=== PATIENT | female | born 1960 | race Caucasian/White ===

== ENCOUNTER 2020-01-09 15:07 | Outpatient (CLI) | payer MEDICARE, SELFPAY ==
--- NOTE | 2020-01-09 15:38 | XR_ITS ---
WS: [id number] HAND LEFT TECHNIQUE: 3 views of the left hand CLINICAL INFORMATION: THUMB PAIN, BILATERAL COMPARISON: None. FINDINGS: Osteopenia. Normal metacarpals. Normal MCP joint. Metacarpal heads are normal in appearance. Mild narrowing of th e IP joints worse involving the fourth and fifth digits. Chronic appearing erosion or small lytic les ion involving the third distal phalangeal tuft. Mild degenerative arthritis the first CMC. Radiocarpal joint: Mild narrowing Carpal bones: Normal. XR/XR hand LT min 3V* [id number] IMPRESSION: 1. Mild degenerative arthritis at the first CMC and radiocarpal joint. 2. Mild narrowing of the fourth and fifth IP joints. 3. Chronic appearing erosion or small lytic lesion involving the third distal phalangeal tuft. Recommend clinical correlation third finger pain or history of trauma.
--- NOTE | 2020-01-09 15:38 | XR_ITS ---
WS: [id number] HAND RIGHT TECHNIQUE: 3 views of the right hand CLINICAL INFORMATION: THUMB PAIN, BILATERAL COMPARISON: None. FINDINGS: Osteopenia. Normal metacarpals. Normal MCP joint. Metacarpal heads are normal in appearance. Normal PIP and DIP j oints. No evidence of acute fracture or dislocation. Radiocarpal joint: Mild degenerative narrowing. Carpal bones: Normal. XR/XR hand RT min 3V* [id number] IMPRESSION: 1. Mild degenerative arthritis right hand with mild narrowing of the radiocarp al joint. 2. Osteopenia. 3. No acute fractures.
== END 2020-01-09 15:08 | disposition home or self-care (01) ==
LOC: RADWPI 15:35
PROVIDERS: PCP Internal Medicine; Visit Provider Nurse Practitioner Family
DX: M19.041 Primary osteoarthritis, right hand (principal); M85.841 Other specified disorders of bone density and structure, right hand; M19.042 Primary osteoarthritis, left hand
CPT/HCPCS: 73130

== ENCOUNTER → 2020-01-11 14:27 | Outpatient (BNVA) | payer OTHER, SELFPAY | PROVIDERS: PCP Internal Medicine; Visit Provider Nurse Practitioner Family | DX: J06.9 Acute upper respiratory infection, unspecified (principal); Z11.59 Encounter for screening for other viral diseases | CPT/HCPCS: 87635 ==

== ENCOUNTER → 2020-03-09 11:51 | Outpatient (BNVA) | payer MEDICARE, SELFPAY | PROVIDERS: PCP Internal Medicine; Visit Provider Nurse Practitioner Family | DX: S62.616D Displaced fracture of proximal phalanx of right little finger, subsequent encounter for fracture with routine healing (principal); X58.XXXD Exposure to other specified factors, subsequent encounter | CPT/HCPCS: 73130 ==

== ENCOUNTER 2020-03-09 12:27 | Emergency (ER) | payer MEDICARE, SELFPAY ==
--- NOTE | 2020-03-09 12:28 | XRR_ITS ---
PROCEDURE INFORMATION: Exam: XR Right Hand Exam date and time: 03/09/2020 12:38 PM Age: 59 years old Clinical indication: Injury or trauma; Fall; Blunt trauma (contusions or hematomas); Hand; Right; Injury date: 03/09/2020; Injury details: PT fell today TECHNIQUE: Imaging protocol: XR Right hand. Views: 3 or more views. COMPARISON: CR XR hand RT min 3V* [id number] 03/09/2020 12:05 PM FINDINGS: Bones/joints: There is transverse nondisplaced hairline fractures in the proximal shaft of the proximal phalange of the 5th digit . Soft tissues: Diffuse soft tissue edema is seen in the dorsal aspect of the hand overlying the 5th metacarpal phalangeal articulation. XR/XR hand RT min 3V* [id number] IMPRESSION: 1. Transverse nondisplaced fracture proximal phalange of the 5th digit 2. Soft tissue edema dorsal aspect of the hand near the 5th digit
[2020-03-09 12:30] VITALS: BP 118/76; PULSE 80; RESP 18; TEMP 36.3; O2SAT 99; BMI 44.6
--- NOTE | 2020-03-09 12:34 | ED_ITS ---
HPI - Fall General: Chief Complaint: Extremity Injury, Upper Stated Complaint: R HAND INJURY POST FALL Time Seen by Provider: 03/09/20 12:31 Source: patient Mode of arrival: ambulatory Limitations: no limitations History of Present Illness: HPI Narrative: 59-year-old female states she fell this morning found her right side. She has deformity of her right pinky finger. She was seen in urgent care and sent here for x-ray x-ray did show dislocation. States her pain is a 7 out of 10. Denies any worsening improving factors. Associated symptoms-after fall: Denies abdominal pain, chest pain, headache(s) or neck pain Review of Systems Const: Denies: fever(s), chills, body aches or change in appetite Eyes: Denies: blurry vision or eye discomfort ENMT: Denies: throat pain or dental pain Card: Denies: chest pain Resp: Denies: dyspnea GI: Denies: abdominal pain, nausea, vomiting or diarrhea : Denies: dysuria Musc: Reports: extremity pain; Denies: neck pain or back pain Skin/Breast: Denies: rash Neuro: Denies: headache(s) Psych: Denies: depression Erick/Lymph: Denies: easy bruising All/Imm: Denies: urticaria PFSH ED PFSH: Social History (Updated 03/09/20 @ 11:39 by Janice Jimenez LPN) Smoking and tobacco status: never smoked Alcohol intake: current Physical Exam Const: COMMON NORMALS: no acute distress, patient oriented x3 and healthy appearing HENMT: COMMON NORMALS: normocephalic and atraumatic HEAD & SCALP: normocephalic and atraumatic Eye: COMMON NORMALS: Equal, round and reactive pupils present and EOMs intact bilaterally PUPIL: Yes Equal, round and reactive pupils present Neck/C-Spine: COMMON NORMALS: full ROM and supple Chest: COMMONS NORMALS: normal inspection of the chest and normal palpation of entire chest wall Resp: COMMON NORMALS: normal respiratory effort, No retractions, No use of accessory muscles and clear to auscultation bilaterally AUSCULTATION: clear to auscultation bilaterally Cardio: COMMON NORMALS: regular rate, regular rhythm and No murmurs present (Cardio) RATE: regular rate RHYTHM: regular rhythm GI: COMMON NORMALS: Normal to inspection, nondistended, normoactive bowel sounds present, Soft to palpation, non-tender and no masses PALPATION: Yes Soft to palpation Extremity: NARRATIVE EXTREMITY EXAM: Dislocation to PIP joint of right ring finger Neuro: COMMON NORMALS: patient oriented x3, moves all extremities and no focal motor deficits Psych: COMMON NORMALS: mental status grossly normal, Normal thought process present and cooperative THOUGHT PROCESS: Normal thought process present Skin: COMMON NORMALS: no rashes or lesions noted and no wounds GENERAL SKIN EXAM: no rashes or lesions noted Procedures Orthopedic Joint Reduction Joint #1: Time Out Performed: Yes Side: right Joint Reduction Location: finger Analgesia: nerve block Local Anesthesia: bupivacaine 0.5% Amount of anesthesic used (mL): 10 Shoulder Technique Used (if applicable): traction/counter-traction Post-reduction neuro exam: intact Post-reduction vascular: intact Post Reduction X-Ray Obtained: Yes Post Reduction X-Ray Results: reduced Splint Applied: Yes Patient Tolerated Procedure: well Course Vital Signs: Vital signs: Vital Signs Temperature 97.3 F L 03/09/20 12:30 Pulse Rate 80 03/09/20 12:30 Respiratory Rate 18 03/09/20 12:30 Blood Pressure 118/76 03/09/20 12:30 Pulse Oximetry 99 03/09/20 12:30 MDM - Fall MDM Narrative: Medical decision making narrative: Patient presents here with finger dislocation along with a proximal fracture. Patient was relocated here with any problems. Patient placed in a finger splint as well and is to follow- up orthopedics. She is return if worsening. Imaging Data^: Other Xray: Attestation: I personally reviewed and interpreted this imaging study as follows: My impression: Fracture to phalanx Discharge Plan Discharge Patient Disposition: Home Clinical Impression: Dislocation of finger Qualifiers: Encounter type: initial encounter Qualified Code(s): S63.259A - Unspecified dislocation of unspecified finger, initial encounter Finger fracture, right Qualifiers: Encounter type: initial encounter Finger: little finger Fracture type: closed Phalanx: proximal Fracture alignment: nondisplaced Qualified Code(s): S62.646A - Nondisplaced fracture of proximal phalanx of right little finger, initial encounter for closed fracture Condition: Stable Prescriptions: No Action tamsulosin 0.4 mg capsule 0.4 mg PO DAILY RF: 0 cyclobenzaprine 5 mg tablet 5 mg PO TID PRNRF: 0 levothyroxine 50 mcg capsule 50 mcg PO DAILY RF: 0 gabapentin 300 mg capsule 300 mg PO BID RF: 0 doxepin 10 mg capsule 10 mg PO DAILY RF: 0 venlafaxine 25 mg tablet 25 mg PO DAILY RF: 0 oxycodone 5 mg capsule 5 mg PO QID PRNRF: 0 Discharge Orders: Discharge Order (Routine); Ordered 03/09/20 Ordered By: Jen Dave Referrals: Jo Evans DO [Primary Care Provider] - Mateo Cerna MD [Physician] - 1-3 days Discharge Diet: Advance as tolerated Discharge Activity: Resume usual activity Patient Instructions: Finger Fracture (ED), Finger Dislocation (ED) Coding Level of Care Code ED High Density Press Laborer for Chg Fwd Exam Comprehensive
[2020-03-09] MEDS: HYDROcodone-acetaminophen 5-325 mg Tablet 1 TAB PO (12:40)
--- NOTE | 2020-03-09 13:08 | PC.NURSE ---
frog splint applies to finger
--- NOTE | 2020-03-11 10:57 | DCPLANNER ---
physician practice manager had message to schedule a follow up appointment for patient with ortho. physician practice manager called the ortho clinic, spoke with [place], gave clinic patients information. physician practice manager was told that patients information would be printed and reviewed. Clinic will call patient with appointment information.
--- NOTE | 2020-03-12 08:30 | DCPLANNER ---
Patient has a follow up appointment scheduled for Thursday, March 12, 2020 at 3:[address] Cerna. Clinic will call patient with appointment information.
--- NOTE | 2020-04-09 14:41 | DCPLANNER ---
Patient had a follow up appointment scheduled with ortho - patient did attend appointment.
== END 2020-03-09 13:11 | disposition home or self-care (01) ==
PROVIDERS: Emergency Provider Emergency Medicine; PCP Internal Medicine
DX: S62.646A Nondisplaced fracture of proximal phalanx of right little finger, initial encounter for closed fracture (principal); S63.286A Dislocation of proximal interphalangeal joint of right little finger, initial encounter; W19.XXXA Unspecified fall, initial encounter; S62.616D Displaced fracture of proximal phalanx of right little finger, subsequent encounter for fracture with routine healing; X58.XXXD Exposure to other specified factors, subsequent encounter
CPT/HCPCS: 12345; 26770; 73130; 99281; 99283

== ENCOUNTER → 2020-03-13 10:58 | Outpatient (BNVA) | payer MEDICARE, SELFPAY | PROVIDERS: PCP Internal Medicine; Referring Provider Nurse Practitioner Family; Visit Provider Specialist | DX: S62.616D Displaced fracture of proximal phalanx of right little finger, subsequent encounter for fracture with routine healing (principal); X58.XXXD Exposure to other specified factors, subsequent encounter; M79.631 Pain in right forearm; Z46.89 Encounter for fitting and adjustment of other specified devices; S50.11XD Contusion of right forearm, subsequent encounter; W18.39XD Other fall on same level, subsequent encounter | CPT/HCPCS: 73090; 73140; 97760; L3984 ==

== ENCOUNTER 2020-03-13 13:13 | Outpatient (CLI) | payer MEDICARE, SELFPAY | END 2020-03-13 13:14 | disposition home or self-care (01) | LOC: SPT 13:15 | PROVIDERS: PCP Internal Medicine; Visit Provider Specialist | DX: Z46.89 Encounter for fitting and adjustment of other specified devices (principal); S62.616D Displaced fracture of proximal phalanx of right little finger, subsequent encounter for fracture with routine healing; S50.11XD Contusion of right forearm, subsequent encounter; W18.39XD Other fall on same level, subsequent encounter | CPT/HCPCS: 97760; L3984 ==

== ENCOUNTER → 2020-03-20 09:45 | Outpatient (BNVA) | payer MEDICARE, SELFPAY | PROVIDERS: PCP Internal Medicine; Visit Provider Specialist | DX: S63.259A Unspecified dislocation of unspecified finger, initial encounter (principal); S62.646A Nondisplaced fracture of proximal phalanx of right little finger, initial encounter for closed fracture; M25.559 Pain in unspecified hip; X58.XXXA Exposure to other specified factors, initial encounter | CPT/HCPCS: 73140 ==

== ENCOUNTER → 2020-04-22 14:10 | Outpatient (BNVA) | payer MEDICARE, SELFPAY | PROVIDERS: PCP Internal Medicine; Visit Provider Nurse Practitioner Family | DX: Z20.828 Contact with and (suspected) exposure to other viral communicable diseases (principal); J06.9 Acute upper respiratory infection, unspecified | CPT/HCPCS: 87635 ==

== ENCOUNTER → 2020-06-18 13:39 | Outpatient (BNVA) | payer MEDICARE, SELFPAY | PROVIDERS: PCP Internal Medicine; Referring Provider Nurse Practitioner Family; Visit Provider Specialist | DX: M79.642 Pain in left hand (principal); M79.641 Pain in right hand; R20.0 Anesthesia of skin; R20.2 Paresthesia of skin; G56.03 Carpal tunnel syndrome, bilateral upper limbs | CPT/HCPCS: 95910 ==

== ENCOUNTER → 2020-07-17 11:47 | Outpatient (BNVA) | payer MEDICARE, SELFPAY | PROVIDERS: PCP Internal Medicine; Referring Provider Nurse Practitioner Family; Visit Provider Specialist | DX: G56.03 Carpal tunnel syndrome, bilateral upper limbs (principal); Z46.89 Encounter for fitting and adjustment of other specified devices | CPT/HCPCS: 73130; 87635; L3908 ==

== ENCOUNTER 2020-07-17 15:11 | Outpatient (CLI) | payer MEDICARE, SELFPAY | END 2020-07-17 15:12 | disposition home or self-care (01) | LOC: SPT 15:12 | PROVIDERS: PCP Internal Medicine; Visit Provider Specialist | DX: Z46.89 Encounter for fitting and adjustment of other specified devices (principal); G56.03 Carpal tunnel syndrome, bilateral upper limbs | CPT/HCPCS: 87635; L3908 ==

== ENCOUNTER 2020-07-19 08:00 | Day surgery (SDC) | payer MEDICARE, SELFPAY ==
[2020-07-18 13:30] VITALS: BMI 45.2
[2020-07-19] VITALS (7 sets, daily range): BP systolic 117–152; BP diastolic 67–102; PULSE 65–77; RESP 14–20; TEMP 36.3–36.8; O2SAT 98–99
--- NOTE | 2020-07-19 08:51 | ANES.PREANE2 ---
Pre-Anesthetic Assessment Pre-Anesthetic Assessment: Height/Weight: Height 1.5 m Weight 101.605 kg Temp Pulse Resp BP Pulse Ox 97.4 F L 77 18 117/72 98 07/19/20 08:22 07/19/20 08:22 07/19/20 08:22 07/19/20 08:41 07/19/20 08:22 Preop Diagnosis: carpal tunnel Proposed Procedure: Operation Date: 07/19/20 09:40 Proposed Procedures p Carpal Tunnel Release 99613 G56.03(Left) - Carmela Charles MD s Trigger Finger Release Thumb 75281 S62.619A(Left) - Carmela Charles MD Familial anesthetic complications: None Was Beta Marilyn taken within 24 hours: N/A Was Clonidine taken within 24 hours: N/A Last intake: Intake Last Liquid Date 07/18/20 Last Liquid Time 22:00 Last Solid Date 07/18/20 Last Solid Time 22:00 Social: Social History: No alcohol and No tobacco Comment: former smoker Exam: Pre-Anes Outpt Exam: alert, oriented x 3, clear to auscultation bilaterally and regular rate & rhythm Airway: Cervical ROM: WNL MP: 4 Dentition: Full Additional comments: small mouth, large neck, potential difficult airway Pulmonary: Pulmonary: Asthma Comments: had to wear O2 when she lived in [place] d/t asthma and allergies, states she no longer requires it down here GI: GI: GERD Metabolic: Metabolic: Morbid obesity and Thyroid Anesthetic Plan: ASA status: 3 Anesthesia: MAC and Regional (specify below) (charly block) Risk of > 500 ml blood loss (7ml/kg in children): No PFSH Anesthesia PFSH: Social History Smoking and tobacco status: never smoked Alcohol intake: current Data Anesthesia Cardiac Studies: No Data to Display
[2020-07-19] MEDS: sodium chloride 0.9% 1,000 ML 30 ML IV (09:02)
--- NOTE | 2020-07-19 09:13 | W.PM.OPSUD ---
Surgery/Procedure H&P Update DATE OF PROCEDURE: July 19, 2020 DATE H&P PERFORMED: 07/17/20 H&P UPDATE INFORMATION: I have reviewed H&P completed within last 30 days, I have examined patient prior to procedure and Changes to prior documentation as noted here PREOP DIAGNOSIS: Left carpal tunnel and trigger thumb PLANNED PROCEDURE: Operation Date: 07/19/20 09:40 Proposed Procedures p Carpal Tunnel Release 68561 G56.03(Left) - Carmela Charles MD s Trigger Finger Release Thumb 21020 S62.619A(Left) - Carmela Charles MD Related Problem List Diagnoses (1) Trigger thumb of left hand: (2) Carpal tunnel syndrome, left:
[2020-07-19] MEDS: ceFAZolin 1,000 mg SDV 1000 MG IRRIGATION (10:15)
--- NOTE | 2020-07-19 11:10 | P.OP_ITS ---
Operative Report Date of procedure: July 19, 2020 Pre-op Diagnosis: Left carpal tunnel syndrome and trigger thumb Post-op diagnosis: same Procedure Done: Left carpal tunnel release. Left trigger thumb release through second incision. Implants: None Pathology: none sent Surgeon: Carmela Charles Head Of Quality: [facility] operating room technicians Anesthesia: MAC (With Florentino block) Estimated blood loss (mL): 2 Tourniquet time (min): 46 Tourniquet time: At 300 mmHg IV fluids (mL): 500 Urine output (mL): 0 Urine output: No Walsh Complications: None Findings: Significant compression across the carpal canal with discoloration and hourglass deformity of the median nerve. Triggering of left thumb. Condition: stable Disposition: PACU (Then to same-day surgery for discharge to home) Brief History: This 60-year-old woman presented with complaints of carpal tunnel symptoms bilaterally. She had appropriate documentation of the same. Additionally, the patient had significant triggering of her left thumb. After discussion, she wished to proceed with surgical intervention. She would like to have both carpal tunnels addressed surgically, but we elected to begin with the left secondary to the trigger thumb as well. Patient was in agreement. Consents were signed. Questions were answered. Procedure: The patient was brought to the operating theater. The patient had a [place] block with MAC. The tourniquet was elevated to 300 mmHg for a total tourniquet time of 46 minutes. The patient was also given Ancef 2 g preoperatively. The arm was then prepped and draped with DuraPrep in usual fashion with the arm draped free. A surgical pause was performed. At the time, the surgical pause, we confirmed the site and side of surgery. We also confirmed the patient's identity, appropriate and timely administration of preoperative antibiotics and preoperative surgical markings. Following the surgical pause, an incision was made along the metacarpal phalangeal crease of the thumb. Dissection continued through the skin to the subcutaneous tissues using a scalpel. Blunt dissection was then utilized to spread soft tissues and allow access to the A1 melissa. A1 melissa was identified. It was then incised longitudinally and sharply using a knife. This was accomplished without difficulty and atraumatically. Once the A1 melissa was released, tendons were brought up out of the wound and evaluated. There were no gross masses on the tendons. Tendons were returned to normal position. We then irrigated the wound and subsequently closed it with 3-0 nylon with an interrupted mattress type suture. Following closure of the wound, the wound was injected with ropivacaine into the subcutaneous tissues as a local anesthetic. An OpSite was placed across this wound An incision was then made along the thenar crease. The incision crossed the wrist joint in a curvilinear fashion. Dissection continued through skin and soft tissues using a scalpel. The palmaris longus was identified along with the transverse carpal ligament. Each of these was released carefully to avoid injury to the median nerve. We were able to dissect gently into the carpal canal which was noted to be quite tight with significant compression across the median nerve . The nerve was visualized. It had purplish discoloration and an hourglass deformity. The canal was subsequently palpated to assure there was no bony encroachment upon the canal. There was a quite thickened fibrous tissue within the canal, and this was opened longitudinally as well. The canal was then palpated distally and proximally to assure that my small finger was passed easily without impingement. Finding this to be so, attention was directed to closure. The wound was irrigated with ropivacaine plain. It was then closed with 3-0 nylon in an interrupted mattress fashion. Sterile dressing was then placed consisting of Xeroform gauze, fluffed fluffs, sterile soft roll, a volar splint, and an Biju wrap. The tourniquet was released after 46 minutes. There were no complications. There were no specimens. The procedure was well tolerated. Plan is the patient will be discharged home. Associated Problem List Diagnoses (1) Carpal tunnel syndrome, left: (2) Trigger thumb of left hand:
--- NOTE | 2020-07-19 13:38 | ANE.PACU2 ---
Inpatient post-anesthesia follow up: Airway intact: Yes Vital signs: Temperature 98.3 F Pulse Rate 65 Respiratory Rate 18 Blood Pressure 152/88 Pulse Oximetry 99 Oxygen Delivery Me thod Room Air Oxygen Flow Rate Fraction of Inspir ed Oxygen Hydration adequate: Yes Nausea and vomiting: No Pain level: 2 Mental status: Baseline
== END 2020-07-19 11:47 | disposition home or self-care (01) ==
PROVIDERS: PCP Internal Medicine; Visit Provider Specialist
PROC: (CPT 64721; principal; 2020-07-19 09:30)
PROC: (CPT 26055; 2020-07-19 09:30)
DX: G56.02 Carpal tunnel syndrome, left upper limb (principal); M65.312 Trigger thumb, left thumb; J45.909 Unspecified asthma, uncomplicated; K21.9 Gastro-esophageal reflux disease without esophagitis; E66.01 Morbid (severe) obesity due to excess calories; Z68.41 Body mass index [BMI] 40.0-44.9, adult
CPT/HCPCS: 26055; 64721; J0690; J2250; J2704; J3010; J3490; J7030

== ENCOUNTER 2020-08-05 06:00 | Outpatient (RCR) | payer MEDICARE, SELFPAY | END 2020-08-23 23:59 | disposition home or self-care (01) | LOC: SPT 06:00 | PROVIDERS: PCP Internal Medicine; Referring Provider Specialist; Visit Provider Specialist | DX: R26.89 Other abnormalities of gait and mobility (principal) | CPT/HCPCS: 97112; 97162 ==

== ENCOUNTER → 2020-08-09 09:52 | Outpatient (BNVA) | payer MEDICARE, SELFPAY | PROVIDERS: PCP Internal Medicine; Visit Provider Surgery | DX: Z01.812 Encounter for preprocedural laboratory examination (principal); Z20.822 Contact with and (suspected) exposure to COVID-19 | CPT/HCPCS: 87635 ==

== ENCOUNTER 2020-08-13 08:40 | Day surgery (SDC) | payer MEDICARE, SELFPAY ==
[2020-08-12 15:37] VITALS: BMI 45.6
[2020-08-13] VITALS (7 sets, daily range): BP systolic 122–138; BP diastolic 60–105; PULSE 71–78; RESP 13–18; TEMP 36.4–36.8; O2SAT 94–99
[2020-08-13] MEDS: sodium chloride 0.9% 1,000 ML 30 ML IV (08:30)
--- NOTE | 2020-08-13 09:01 | P.HPUD_ITS ---
Surgery/Procedure H&P Update DATE OF PROCEDURE: August 13, 2020 DATE H&P PERFORMED: 07/17/20 H&P UPDATE INFORMATION: I have reviewed H&P completed within last 30 days, I have examined patient prior to procedure, No changes to prior documentation and H&P is in [facility] EMR on date indicated PREOP DIAGNOSIS: Left carpal tunnel syndrome and trigger thumb PLANNED PROCEDURE: Operation Date: 08/13/20 10:10 Proposed Procedures p right Carpal Tunnel Release [id number] 75237 g56.01 m65.311(Right) - Carmela Charles MD s right thumb Trigger Finger Release(Right) - Carmela Charles MD Related Problem List Diagnoses (1) Trigger thumb, right thumb: (2) Carpal tunnel syndrome of right wrist:
[2020-08-13] MEDS: CELEcoxib 200 mg Capsule 400 MG PO (09:34)
[2020-08-13] MEDS: acetaminophen 1,000 MG/100 ML PIGGYBACK 400 MG IV (09:37)
--- NOTE | 2020-08-13 09:46 | ANES.PREANE2 ---
Pre-Anesthetic Assessment Pre-Anesthetic Assessment: Height/Weight: Height 1.5 m Weight 102.512 kg Temp Pulse Resp BP Pulse Ox 98 F 78 18 138/105 99 08/13/20 09:21 08/13/20 09:21 08/13/20 09:21 08/13/20 09:21 08/13/20 09:21 Preop Diagnosis: Right carpal tunnel and right Thumb trigger finger Proposed Procedure: Operation Date: 08/13/20 10:10 Proposed Procedures p right Carpal Tunnel Release 10105 37562 g56.01 m65.311(Right) - Carmela Charles MD s right thumb Trigger Finger Release(Right) - Carmela Charles MD Was Beta Marilyn taken within 24 hours: N/A Was Clonidine taken within 24 hours: N/A Last intake: Intake Last Liquid Date 08/12/20 Last Liquid Time 00:00 Last Solid Date 08/12/20 Last Solid Time 00:00 Social: Social History: No alcohol and No tobacco Exam: Pre-Anes Outpt Exam: alert, oriented x 3, clear to auscultation bilaterally and regular rate & rhythm Airway: Submandibular: WNL Cervical ROM: WNL MP: 2 Dentition: Full GI: GI: GERD Metabolic: Metabolic: Morbid obesity and Thyroid Anesthetic Plan: ASA status: 3 Anesthesia: MAC and Regional (specify below) (Florentino marie) Risk of > 500 ml blood loss (7ml/kg in children): No PFSH Anesthesia PFSH: Social History Smoking and tobacco status: never smoked Alcohol intake: current Data Anesthesia Cardiac Studies: No Data to Display
--- NOTE | 2020-08-13 11:07 | PM.OP ---
Operative Report Date of procedure: August 13, 2020 Pre-op Diagnosis: Right carpal tunnel and right trigger thumb Post-op diagnosis: same Post-op Findings: Carpal tunnel and triggering of right thumb Procedure Done: Right carpal tunnel release. Right trigger thumb release through second incision. Implants: None Specimens removed/disposition: None Pathology: none sent Surgeon: Carmela Charles Medical Physics Professor: None Anesthesia: General (LMA, ASA 3) Estimated blood loss (mL): 0 Tourniquet time (min): 29 Tourniquet time: At 300 mmHg IV fluids (mL): 500 Urine output (mL): 0 Urine output: No Walsh Complications: None Findings: Significant compression across the carpal canal with discoloration and hourglass deformity of the median nerve. Triggering of left thumb. Condition: stable Disposition: PACU (Then to same-day surgery for discharge to home) Brief History: This 60-year-old woman presented with complaints of carpal tunnel symptoms bilaterally. She had appropriate documentation of the same. The patient has had a successful left carpal tunnel and trigger thumb release. She presents today with complaints of right carpal tunnel and right trigger thumb. After discussion, she wished to proceed with surgical intervention. Patient was in agreement. Consents were signed. Questions were answered. Procedure: The patient was brought to the operating theater. The patient had a general anesthesia per LMA, ASA 3, following difficult IV access for a [place] block. The tourniquet was elevated to 300 mmHg for a total tourniquet time of 29 minutes. The patient was also given Ancef 2 g, Ofirmev 1 g, and Celebrex 400 mg 62 preoperatively. The arm was then prepped and draped with DuraPrep in usual fashion with the arm draped free. A surgical pause was performed. At the time, the surgical pause, we confirmed the site and side of surgery. We also confirmed the patient's identity, appropriate and timely administration of preoperative antibiotics and preoperative surgical markings. Of An incision was then made along the thenar crease. The incision crossed the wrist joint in a curvilinear fashion. Dissection continued through skin and soft tissues using a scalpel. The palmaris longus was identified along with the transverse carpal ligament. Each of these was released carefully to avoid injury to the median nerve. We were able to dissect gently into the carpal canal which was noted to be quite tight with significant compression across the median nerve. The nerve was visualized. It had purplish discoloration and an hourglass deformity. The canal was subsequently palpated to assure there was no bony encroachment upon the canal. There was a quite thickened fibrous tissue within the canal, and this was opened longitudinally as well. The canal was then palpated distally and proximally to assure that my small finger was passed easily without impingement. Finding this to be so, attention was directed to closure. The wound was irrigated with ropivacaine plain. It was then closed with 3-0 nylon in an interrupted mattress fashion. An incision was then made along the metacarpal phalangeal crease of the thumb. Dissection continued through the skin to the subcutaneous tissues using a scalpel. Blunt dissection was then utilized to spread soft tissues and allow access to the A1 melissa. A1 melissa was identified. It was then incised longitudinally and sharply using a knife. This was accomplished without difficulty and atraumatically. Once the A1 melissa was released, tendons were brought up out of the wound and evaluated. There were no gross masses on the tendons. Tendons were returned to normal position. We then irrigated the wound and subsequently closed it with 3-0 nylon with an interrupted mattress type suture. Following closure of the wound, the wound was injected with ropivacaine into the subcutaneous tissues as a local anesthetic. An OpSite was placed across this wound. Sterile dressing was then placed on the carpal tunnel incision consisting of Xeroform gauze, fluffed fluffs, sterile soft roll, a volar splint, and an Biju wrap. The tourniquet was released after 29 thank you Estephania already has some moneyminutes. There were no complications. There were no specimens. The procedure was well tolerated. Plan is the patient will be discharged home. Associated Problem List Diagnoses (1) Carpal tunnel syndrome of right wrist: (2) Trigger thumb, right thumb:
--- NOTE | 2020-08-13 17:16 | ANE.PACU2 ---
Inpatient post-anesthesia follow up: Airway intact: Yes Vital signs: Temperature 97.8 F Pulse Rate 71 Respiratory Rate 16 Blood Pressure 130/64 Pulse Oximetry 97 Oxygen Delivery Me thod Room Air Oxygen Flow Rate Fraction of Inspir ed Oxygen Hydration adequate: Yes Nausea and vomiting: No Pain level: 1 Mental status: Baseline
== END 2020-08-13 12:06 | disposition home or self-care (01) ==
PROVIDERS: PCP Internal Medicine; Visit Provider Specialist
PROC: (CPT 64721; principal; 2020-08-13 10:10)
PROC: (CPT 26055; 2020-08-13 10:10)
DX: G56.01 Carpal tunnel syndrome, right upper limb (principal); M65.311 Trigger thumb, right thumb; K21.9 Gastro-esophageal reflux disease without esophagitis; E66.01 Morbid (severe) obesity due to excess calories; Z68.42 Body mass index [BMI] 45.0-49.9, adult
CPT/HCPCS: 26055; 64721; 96365; J0690; J1170; J2250; J2405; J2704; J3010; J3490; J7030

== ENCOUNTER 2020-08-23 14:08 | Outpatient (CLI) | payer MEDICARE, SELFPAY | END 2020-08-23 14:09 | disposition home or self-care (01) | LOC: LAB 01-12 11:15 | PROVIDERS: PCP Nurse Practitioner Family; Visit Provider Surgery | DX: Z12.11 Encounter for screening for malignant neoplasm of colon (principal); Z20.822 Contact with and (suspected) exposure to COVID-19 | CPT/HCPCS: 87635 ==

== ENCOUNTER 2020-08-24 06:00 | Outpatient (RCR) | payer MEDICARE, SELFPAY | END 2020-09-23 23:59 | disposition home or self-care (01) | LOC: SPT 06:00 | PROVIDERS: PCP Internal Medicine; Referring Provider Specialist; Visit Provider Specialist | DX: R26.89 Other abnormalities of gait and mobility (principal) | CPT/HCPCS: 97112 ==

== ENCOUNTER 2020-08-28 06:02 | Day surgery (SDC) | payer MEDICARE, SELFPAY ==
--- NOTE | 2020-08-28 06:30 | W.PM.OPSFHP ---
Same Day Surgery H&P Indication for Procedure/HPI DATE OF PROCEDURE: August 28, 2020 CHIEF COMPLAINT/INDICATIONFOR SURGICAL PROCEDURE: Screening colonoscopy PREOP DIAGNOSIS: Screening colonoscopy PLANNED PROCEDRUE: Operation Date: 08/28/20 07:30 Proposed Procedures p Colonoscopy 76589 Z12.11(Not Applicable) - Dougie Vazquez MD 07/25/2020 clinic visit HPI This is a pleasant 60 years old female patient with history of morbid obesity and a current BMI of 46.2 and weighs 229 pounds. Patient comes today for screening colonoscopy as she reports that she had a previous screening colonoscopy 10 years ago was within normal limits, she denies any bleeding per rectum or history of colon cancer or nonintentional weight loss. Interim history 08/28/2020 Patient comes today for screening colonoscopy ROS All systems have been reviewed negative except as per the above or per problem list Medications/Allergies* Home Medications Medication Instructions Recorded Confirmed Type cyclobenzaprine 5 mg tablet 5 mg PO TID PRN 01/11/20 08/26/20 History doxepin 10 mg capsule 10 mg PO DAILY 01/11/20 08/26/20 History gabapentin 300 mg capsule 300 mg PO BID 01/11/20 08/26/20 History levothyroxine 50 mcg capsule 75 mcg PO DAILY 01/11/20 08/26/20 History tamsulosin 0.4 mg capsule 0.4 mg PO DAILY 01/11/20 08/26/20 History oxycodone 5 mg capsule 5 mg PO QID PRN 03/09/20 08/26/20 History venlafaxine 25 mg tablet 250 mg PO DAILY tab 06/18/20 08/26/20 History Multi Vitamin 1 tab PO DAILY 07/19/20 08/26/20 History ascorbic acid (vitamin C) [Vitamin 500 mg PO DAILY 07/19/20 08/26/20 History C] cholecalciferol (vitamin D3) 400 unit PO DAILY 07/19/20 08/26/20 History [Vitamin D3] glucosamine sulfate 750 mg PO DAILY 07/19/20 08/26/20 History omeprazole magnesium [Prilosec OTC] 40 mg PO DAILY 07/19/20 08/26/20 History celecoxib 200 mg PO DAILY 08/26/20 08/26/20 History Allergies/Adverse Reactions Allergy/AdvReac Type Severity Reaction Status Date / Time lorazepam [From Ativan] Allergy ADR-Agitate Verified 08/28/20 06:31 d morphine Allergy ADR-Agitate Verified 08/28/20 06:31 d Pertinent History/Comorbid Conditions* Social History Smoking and tobacco status: never smoked Alcohol intake: current Pertinent Exam Findings alert, oriented x 3, clear to auscultation bilaterally, regular rate & rhythm and procedure specific exam findings (Abdominal examination nontender moderately distended morbidly obese no juliano) Patient had history of laparoscopic Molly-en-Y gastric bypass Recommendations Surgery/Procedure today (Screening colonoscopy) Other Plans: Plan of care; After thorough history and physical examination and reviewing the chart, plan to perform screening colonoscopy. I discussed with the patient in details the risks,benefits,alternatives and indications.The risk of aspiration, bleeding, soft tissue injury, perforation of the colon and other potential concomitant complications were explained to the patient in details,also the potential need for Laproscoy/Laparotomy to repair any related complications including but not limited to colectomy and or Closotomy.The patient understood this well and did agree to proceed. Rationale was carefully and clearly discussed with the patient.Appropriate informed consent have been reviewed and signed All questions have been answered and all concerns have been addressed to patient's satisfaction. Verbal and written Instructions were given to the patient for colonoscopy prep Coding Level of Care Code Acute Principal Clerk Typist for Kia Mcdermott
[2020-08-28 06:32] VITALS: BP 144/72; PULSE 73; RESP 18; TEMP 36.4; O2SAT 97
--- NOTE | 2020-08-28 06:54 | ANES.PREANE2 ---
Pre-Anesthetic Assessment Pre-Anesthetic Assessment: Height/Weight: Height 1.5 m Weight 102.512 kg Temp Pulse Resp BP Pulse Ox 97.5 F L 73 18 144/72 97 08/28/20 06:32 08/28/20 06:32 08/28/20 06:32 08/28/20 06:32 08/28/20 06:32 Preop Diagnosis: Screening colonoscopy Proposed Procedure: Operation Date: 08/28/20 07:30 Proposed Procedures p Colonoscopy 34216 Z12.11(Not Applicable) - Dougie Vazquez MD Familial anesthetic complications: none Was Beta Marilyn taken within 24 hours: N/A Was Clonidine taken within 24 hours: N/A Last intake: Intake Last Liquid Date 08/27/20 Last Liquid Time 23:59 Last Solid Date 08/26/20 Last Solid Time 20:00 Last Intake: 23:59 Social: Social History: No alcohol and No tobacco Exam: Pre-Anes Outpt Exam: alert, oriented x 3, clear to auscultation bilaterally and regular rate & rhythm Airway: Submandibular: WNL Cervical ROM: WNL MP: 3 Dentition: Full Pulmonary: Pulmonary: None reported CV/HEM: CV/HEM: None reported : : None reported Hepatic: Hepatic: None reported GI: GI: GERD (controlled) and Hiatus hernia Metabolic: Metabolic: Morbid obesity and Thyroid Musc/skel: Musc/skel: Lower Back Pain and OA/DJD Neuropsych: Neuropsych: None reported Anesthetic Plan: ASA status: 2 Anesthesia: MAC PFSH Anesthesia PFSH: Social History Smoking and tobacco status: never smoked Alcohol intake: current Data Anesthesia Cardiac Studies: No Data to Display
[2020-08-28] MEDS: sodium chloride 0.9% 1,000 ML 30 ML IV (06:55)
[2020-08-28 08:08] VITALS: BP 94/52; PULSE 73; RESP 18; TEMP 36.1; O2SAT 92
--- NOTE | 2020-08-28 08:08 | ANE.PACU2 ---
Inpatient post-anesthesia follow up: Airway intact: Yes Vital signs: Temperature 97.5 F Pulse Rate 73 Respiratory Rate 18 Blood Pressure 144/72 Pulse Oximetry 97 Oxygen Delivery Me thod Room Air Oxygen Flow Rate Fraction of Inspir ed Oxygen Hydration adequate: Yes Nausea and vomiting: No Pain level: 1 Mental status: Baseline
[2020-08-28 08:16] VITALS: BP 100/66; PULSE 64; RESP 18
== END 2020-08-28 08:28 | disposition home or self-care (01) ==
PROVIDERS: PCP Internal Medicine; Visit Provider Surgery
PROC: 0DJD8ZZ Inspection of Lower Intestinal Tract, Via Natural or Artificial Opening Endoscopic (ICD-10-PCS; CPT 45378; principal; 2020-08-28 07:30)
DX: Z12.11 Encounter for screening for malignant neoplasm of colon (principal); E66.01 Morbid (severe) obesity due to excess calories; Z68.42 Body mass index [BMI] 45.0-49.9, adult; K21.9 Gastro-esophageal reflux disease without esophagitis
CPT/HCPCS: 45378; 96360; G0121; J2704; J7030

== ENCOUNTER 2020-09-18 12:40 | Outpatient (CLI) | payer MEDICARE, SELFPAY ==
--- NOTE | 2020-09-18 12:52 | XR_ITS ---
WS: [id number] SACRUM AND COCCYX TECHNIQUE: AP angled and lateral views. HISTORY: CHRONIC FEMALE PELVIC PAIN COMPARISON: None available. Sacrum and coccyx are secured by soft tissue and GI content. No fracture or malalignment. Visualized bony structures are unremarkable. XR/XR sacrum coccyx min 2V [id number] IMPRESSION: No abnormality noted but limited evaluation on the AP projections.
== END 2020-09-18 12:41 | disposition home or self-care (01) ==
PROVIDERS: PCP Internal Medicine; Visit Provider Nurse Practitioner Family
DX: R10.2 Pelvic and perineal pain (principal)
CPT/HCPCS: 72220

== ENCOUNTER 2020-09-25 15:27 | Outpatient (CLI) | payer MEDICARE, SELFPAY ==
[2020-09-25 16:07] LABS: Basophils # 0.1 10^3/uL (0.0-0.1); Basophils % 0.5 %; Eosinophils # 0.3 10^3/uL (0.0-0.8); Eosinophils % 2.9 %; Hematocrit 44.8 % (37.0-47.0); Hemoglobin 14.4 g/dL (11.5-15.3); Lymphocytes # 2.3 10^3/uL (0.8-4.8); Lymphocytes % 22.1 %; Mean Corpuscular HGB Conc 32.1 g/dL (30.0-36.0); Mean Corpuscular Hemoglobin 28.8 pg (28.0-34.0); Mean Corpuscular Volume 89.6 fL (81-99); Mean Platelet Volume 9.7 fL (7.4-10.4); Monocytes # 0.7 10^3/uL (0.2-0.9); Monocytes % 6.7 %; Neutrophils % 67.3 %; Nucleated Red Blood Cells % 0 %; Platelet Count 504 10^3/cmm (130-400); Red Cell Distribution Width 13.5 % (12.1-15.1); White Blood Count 10.5 10^3/uL (4.0-10.0)
[2020-09-25 16:21] LABS: INR 0.96 (0.8-1.2)
[2020-09-25 17:07] LABS: Alanine Aminotransferase 37 U/L (0-33); Albumin Level 4.3 g/dL (3.5-5.2); Alkaline Phosphatase 141 IU/L (35-105); Anion Gap 15.3 (5-19); Aspartate Amino Transferase 28 U/L (0-32); Blood Urea Nitrogen 10 mg/dL (8-23); Calcium 9.1 mg/dL (8.5-10.5); Carbon Dioxide 28 mmol/L (22-29); Chloride 98 mmol/L (98-107); Chol HDL Ratio 3.13 mg/dL (0.0-4.40); Cholesterol 166 mg/dL (0-200); Ferritin 29 ng/mL (15-150); Globulin 3.5 g/dL (1.3-4.6); Glomerular Filtration Rate 125.9 mL/min (90-130); Glucose 86 mg/dL (65-115); HDL Cholesterol 53 mg/dL (60-100); Iron 100 ug/dL (37-145); LDL Cholesterol Calculated 79 mg/dL (50-129); LDL HDL Ratio 1.49 RATIO (0.00-3.22); Magnesium 2.1 mg/dL (1.7-2.3); Osmolality Calculated 282 mOsm/kg (285-295); Percent Saturation 25.2 % (20-50); Phosphorus 3.9 mg/dL (2.5-4.5); Potassium 4.3 mmol/L (3.5-5.1); Sodium 137 mmol/L (136-145); Total Bilirubin 0.3 mg/dL (0.15-1.2); Total Iron Binding Capacity 396 mcg/dl; Total Protein 7.8 g/dL (6.6-8.7); Triglycerides 170 mg/dL (0-150); Unsaturated Iron Binding 296 ug/dL (112-347); Vitamin B12 531 pg/mL (232-1245)
[2020-09-25 17:09] LABS: Folate Level 18.6 ng/mL (4.8-37.3)
[2020-09-25 17:20] LABS: Calcium 9.3 mg/dL (8.5-10.5)
[2020-09-25 17:24] LABS: Parathyroid Hormone 61.8 pg/mL (15-65)
== END 2020-09-25 15:28 | disposition home or self-care (01) ==
PROVIDERS: PCP Internal Medicine; Visit Provider Surgery
DX: Z98.84 Bariatric surgery status (principal)
CPT/HCPCS: 36415; 80053; 80061; 82310; 82607; 82728; 82746; 83540; 83550; 83735; 83970; 84100; 84443; 85025; 85610

== ENCOUNTER 2020-10-03 08:28 | Outpatient (CLI) | payer MEDICARE, SELFPAY ==
--- NOTE | 2020-10-03 08:39 | FL_ITS ---
WS: [id number] UPPER GI WITH AIR TECHNICAL: FLUOROSCOPY TIME: 2.2 minutes CLINICAL INFORMATION: Z98.84 - Bariatric surgery status COMPARISON: None. FINDINGS: Swallowing: Normal. Esophagus: Moderate esophageal dysmotility with delayed emptying on the upright view and tertiary con tractions. Prominent reflux is visualized into the upper thoracic esophagus worse in the supine imagi ng. Moderate esophageal hiatal hernia. Mild narrowing in the distal esophagus just above the hernia. Normal mucosa in this area. Reflux esophagitis in the distal one third esophagus with several small e rosions and a marginal ulcer. This can be further evaluated with endoscopy. Gastroesophageal reflux: Present prominent reflux the upper thoracic esophagus. Stomach: Postoperative changes Molly-en-Y gastric bypass. Normal gastric pouch with normal Molly anasto mosis. No evidence of anastomotic stricture or marginal ulcer. Excluded stomach is not visualized. Other findings: None. FL/FL upper GI w air* [id number] IMPRESSION: 1. Prior postoperative changes Molly-en-Y gastric bypass. 2. Small gastric pouch is visualized with normal Molly anastomosis. No evidence of anastomotic stricture. 3. Normal proximal filling of the biliopancreatic limb. Excluded stomach is no t visualized. 4. Moderate esophageal dysmotility with tertiary contractions and delayed empt adriano on the upright view. 5. Moderate esophageal hiatal hernia with mild stricture in the distal esophag us just above the hernia. Mucosa appears intact. Recommend endoscopy for furthe r evaluation. 6. Prominent active reflux is visualized to the upper thoracic esophagus worse on the supine imaging. 7. Evidence of reflux esophagitis in the distal one third esophagus with sever al small erosions and a marginal ulcer. This can be further evaluated with endo scopy.
== END 2020-10-03 08:29 | disposition home or self-care (01) ==
PROVIDERS: PCP Internal Medicine; Visit Provider Surgery
DX: Z98.84 Bariatric surgery status (principal); K44.9 Diaphragmatic hernia without obstruction or gangrene; K21.9 Gastro-esophageal reflux disease without esophagitis
CPT/HCPCS: 74246

== ENCOUNTER 2020-10-18 11:54 | Outpatient (CLI) | payer MEDICARE, SELFPAY ==
--- NOTE | 2020-10-18 12:01 | MM_ITS ---
WS: [id number] BILATERAL SCREENING DIGITAL MAMMOGRAM WITH CAD HISTORY: SCREENING COMPARISON: None available. Bilateral CC and MLO views submitted. Computer aided detection analyzed. Breast composition: There are scattered areas of fibroglandular density. No suspicious masses, microc alcifications or architectural distortion. Scattered calcifications in each breast. MM/[place] [id number] IMPRESSION: BI-RADS: 2-Benign FOLLOW UP: 1 Year Follow-up
== END 2020-10-18 11:55 | disposition home or self-care (01) ==
LOC: RADSHAW 12:00
PROVIDERS: PCP Nurse Practitioner Family; Visit Provider Nurse Practitioner Family
DX: Z12.31 Encounter for screening mammogram for malignant neoplasm of breast (principal)
CPT/HCPCS: 77067; 87635

== ENCOUNTER → 2020-10-30 10:58 | Outpatient (BNVA) | payer MEDICARE, SELFPAY | PROVIDERS: PCP Nurse Practitioner Family; Visit Provider Surgery | DX: Z98.84 Bariatric surgery status (principal) | CPT/HCPCS: 87635 ==

== ENCOUNTER 2020-11-04 06:32 | Day surgery (SDC) | payer MEDICARE, SELFPAY ==
[2020-10-30 16:05] VITALS: BMI 45.6
--- NOTE | 2020-11-04 06:28 | P.HP_ITS ---
Same Day Surgery H&P Indication for Procedure/HPI DATE OF PROCEDURE: November 04, 2020 CHIEF COMPLAINT/INDICATIONFOR SURGICAL PROCEDURE: I am gaining weight PREOP DIAGNOSIS: Screening colonoscopy PLANNED PROCEDRUE: Operation Date: 11/04/20 07:30 Proposed Procedures p EGD Dilation W/ Balloon 16653 z98.84(Not Applicable) - Dougie Vazquez MD This is a pleasant 60 years old female patient well-known to me from previous clinical encounter. As she did present to me before for screening colonoscopy. Colonoscopy was done back 08/28/2020 and revealed normal findings. Patient comes today as she is concerned about her weight with a current weight of 221 pounds and a BMI of 44.6, class III obesity. Patient has been struggling with weight and has tried different modalities without obvious success status post laparoscopic Molly-en-Y gastric bypass, patient comes today showing interest in discussing different modalities for obesity management.. Patient reports to me that she did have previous Bariatric surgery in the form of laparoscopic Molly-en-Y gastric bypass about 6 years ago back in [place]. With initial weight of 240 pounds and she lost about 20 pounds after surgery with a current weight 221 pounds.. According to the patient's spouse that patient likes to eat all the time. She has been on regular vitamins and no much protein intake. It has been a long time since she had a full bariatric panel to check her blood levels of vitamins Interim history 11/04/2020 Patient comes today for upper endoscopy status post laparoscopic Molly-en-Y gastric bypass and an upper GI study was done per my request that did show; 1. Prior postoperative changes Molly-en-Y gastric bypass. 2. Small gastric pouch is visualized with normal Molly anastomosis. No evidence of anastomotic stricture. 3. Normal proximal filling of the biliopancreatic limb. Excluded stomach is not visualized. 4. Moderate esophageal dysmotility with tertiary contractions and delayed emptying on the upright view. 5. Moderate esophageal hiatal hernia with mild stricture in the distal esophagus just above the hernia. Mucosa appears intact. Recommend endoscopy for further evaluation. 6. Prominent active reflux is visualized to the upper thoracic esophagus worse on the supine imaging. 7. Evidence of reflux esophagitis in the distal one third esophagus with several small erosions and a marginal ulcer. This can be further evaluated with endoscopy. ROS All systems have been reviewed negative except as per the above or per problem list Medications/Allergies* Home Medications Medication Instructions Recorded Confirmed Type cyclobenzaprine 5 mg tablet 5 mg PO TID PRN 01/11/20 10/30/20 History doxepin 10 mg capsule 10 mg PO DAILY 01/11/20 10/30/20 History tamsulosin 0.4 mg capsule 0.4 mg PO DAILY 01/11/20 10/30/20 History Multi Vitamin 1 tab PO DAILY 07/19/20 10/30/20 History ascorbic acid (vitamin C) [Vitamin 500 mg PO DAILY 07/19/20 10/30/20 History C] cholecalciferol (vitamin D3) 400 unit PO DAILY 07/19/20 10/30/20 History [Vitamin D3] glucosamine sulfate 750 mg PO DAILY 07/19/20 10/30/20 History omeprazole magnesium [Prilosec OTC] 20 mg PO DAILY 07/19/20 10/30/20 History gabapentin 300 mg capsule 600 mg PO BID cap 09/30/20 10/30/20 History naproxen sodium 220 mg tablet 220 mg PO TID PRN tab 09/30/20 10/30/20 History levothyroxine 75 mcg PO DAILY 10/30/20 10/30/20 History venlafaxine 225 mg PO DAILY 10/30/20 10/30/20 History Allergies/Adverse Reactions Allergy/AdvReac Type Severity Reaction Status Date / Time lorazepam [From Ativan] AdvReac ADR-Agitate Verified 11/04/20 06:41 d morphine AdvReac [id number] Verified 11/04/20 06:41 take hydrocodone/Dilaudid Pertinent History/Comorbid Conditions* Medical History (Updated 10/01/20 @ 05:14 by Christi Robbins MD) Chronic pain Has had problems with chronic pain in her lower back/lower abdomen since at least 2009 and has been on medication-this is currently being managed by her primary care provider at this time. Hypothyroidism Diagnosed in her 50s being managed by her primary care provider. Does not have an printer's assistant IBS (irritable bowel syndrome) Has had symptoms on and off since her 40s. Is not on any medication other than venlafaxine to help her symptoms. This is managed by her primary care provider. No pertinent past medical history Denies diabetes, asthma, hypertension, seizures, DVT/PE PCP: JULITO [place] Surgical History (Updated 10/01/20 @ 04:57 by Christi Robbins MD) History of bilateral knee replacement Open procedures done in her 50s History of bladder surgery Think she has had 3 of 4 bladder surgeries prolapse ---> The first 1 was in approximately 1988 done for bladder prolapse and she states that she overdid it in about a month later had stitches fall and had to have repeat surgery done to fix everything again. She thinks she may have had one other surgery in about 1999 but is not certain. Her final surgery on her bladder was done in 2010 and it was done for pain to try to help with adhesions as that was thought to be the cause of pain. ---> Denied any mesh placement with any of these procedures. History of carpal tunnel release of both wrists Has had bilateral carpal tunnel release surgery as well as bilateral trigger finger release surgery in June and July [address] Fallon at [facility] [place]. History of colonoscopy [address] Vazquez-per patient it was normal and plan is to repeat in 10 years History of gastric bypass Reports having had a laparoscopic gastric bypass procedure in 2018 or 2019. History of hysterectomy Laparoscopic/vaginal hysterectomy in the for vaginal bleeding. She was told there was no cancer after the hysterectomy. History of tonsillectomy As a child S/P bilateral oophorectomy 1989--laparoscopic surgery for removal of both ovaries for pain and ovarian cysts. Per patient no cancer identified at time of surgery Family History (Updated 09/30/20 @ 14:03 by Liliam Linn RN) Hyperlipidemia Brother Hypertension Brother Thyroid condition Brother Denies family history of Colon cancer Ovarian cancer Diabetes Heart disease Breast cancer Uterine cancer Stroke Social History Smoking and tobacco status: never smoked Alcohol intake: current Alcohol intake frequency: holidays/special occasions only History of recent travel: Yes ([place] and [place] last week) Pertinent Exam Findings alert, oriented x 3, clear to auscultation bilaterally and procedure specific exam findings (Abdominal examination nontender nondistended soft) Recommendations Surgery/Procedure today (Upper endoscopy in the form of diagnostic EGD with possible biopsy and possible balloon dilation) Other Plans: Plan of care; After thorough history and physical examination and reviewing the chart, plan to perform a diagnostic upper endoscopy/esophagogastroduodenoscopy with possible biopsy in the GI lab. I discussed with the patient in detail the risk,benefits,alternatives and indications.The risk of aspiration, bleeding, soft tissue injury, perforation of the stomach/esophagus and other potential concomitant complications were explained to the patient in details,aslo the potential need for Thoracic and or Abdominal surgery to repair any complications.The patient understood this well and did agree to proceed. Rationale was carefully and clearly discussed with the patient.Appropriate informed consent have been reviewed and signed All questions have been answered and all concerns have been addressed to patient's satisfaction. Coding Level of Care Code Acute Staffing Specialist for Kia Mcdermott
[2020-11-04 06:40] VITALS: BP 127/94; PULSE 84; RESP 18; TEMP 36.2; O2SAT 95
--- NOTE | 2020-11-04 07:22 | P.ANESASSM_ITS ---
Pre-Anesthetic Assessment Pre-Anesthetic Assessment: Height/Weight: Height 1.5 m Weight 102.512 kg Temp Pulse Resp BP Pulse Ox 97.1 F L 84 18 127/94 95 11/04/20 06:40 11/04/20 06:40 11/04/20 06:40 11/04/20 06:40 11/04/20 06:40 Preop Diagnosis: Weight regain status post gastric bypass Proposed Procedure: Operation Date: 11/04/20 07:30 Proposed Procedures p EGD Dilation W/ Balloon 09832 z98.84(Not Applicable) - Dougie Vazquez MD Was Beta Marilyn taken within 24 hours: N/A Was Clonidine taken within 24 hours: N/A Last intake: Intake Last Liquid Date 11/03/20 Last Liquid Time 21:00 Last Solid Date 11/03/20 Last Solid Time 21:00 Social: Social History: No tobacco Exam: Pre-Anes Outpt Exam: alert, oriented x 3, clear to auscultation bilaterally and regular rate & rhythm Airway: Submandibular: Other (small mouth, short neck) Cervical ROM: WNL and Other MP: 3 Dentition: Full History/ROS: No significant history except as noted and No significant complaints Pulmonary: Pulmonary: Sleep apnea Comments: CPAP CV/HEM: CV/HEM: None reported : : None reported Hepatic: Hepatic: None reported GI: GI: GERD Comments: Prior gastric procedure Metabolic: Metabolic: Morbid obesity and Thyroid Musc/skel: Musc/skel: None reported Neuropsych: Neuropsych: None reported Anesthetic Plan: ASA status: 3 Anesthesia: Anesthesia Evaluation and MAC PFS Anesthesia PFSH: Medical History (Updated 10/01/20 @ 05:14 by Christi Robbins MD) Chronic pain Has had problems with chronic pain in her lower back/lower abdomen since at least 2009 and has been on medication-this is currently being managed by her primary care provider at this time. Hypothyroidism Diagnosed in her 50s being managed by her primary care provider. Does not have an insulation technician IBS (irritable bowel syndrome) Has had symptoms on and off since her 40s. Is not on any medication other than venlafaxine to help her symptoms. This is managed by her primary care provider. No pertinent past medical history Denies diabetes, asthma, hypertension, seizures, DVT/PE PCP: Arie Lia, [employer] Surgical History (Updated 10/01/20 @ 04:57 by Christi Robbins MD) History of bilateral knee replacement Open procedures done in her 50s History of bladder surgery Think she has had 3 of 4 bladder surgeries prolapse ---> The first 1 was in approximately 1988 done for bladder prolapse and she states that she overdid it in about a month later had stitches fall and had to have repeat surgery done to fix everything again. She thinks she may have had one other surgery in about 1999 but is not certain. Her final surgery on her bladder was done in 2010 and it was done for pain to try to help with adhesions as that was thought to be the cause of pain. ---> Denied any mesh placement with any of these procedures. History of carpal tunnel release of both wrists Has had bilateral carpal tunnel release surgery as well as bilateral trigger finger release surgery in June and July [address] [place] [facility] [place] History of colonoscopy [address] Vazquez-per patient it was normal and plan is to repeat in 10 years History of gastric bypass Reports having had a laparoscopic gastric bypass procedure in 2018 or 2019. History of hysterectomy Laparoscopic/vaginal hysterectomy in the for vaginal bleeding. She was told there was no cancer after the hysterectomy. History of tonsillectomy As a child S/P bilateral oophorectomy 1989--laparoscopic surgery for removal of both ovaries for pain and ovarian cysts. Per patient no cancer identified at time of surgery Family History (Updated 09/30/20 @ 14:03 by Liliam Linn RN) Brother Hypertension Hyperlipidemia Thyroid condition Denies family history of Colon cancer Ovarian cancer Diabetes Heart disease Breast cancer Uterine cancer Stroke Social History Smoking and tobacco status: never smoked Alcohol intake: current Alcohol intake frequency: holidays/special occasions only History of recent travel: [place] Data Anesthesia Cardiac Studies: No Data to Display
[2020-11-04 07:44] VITALS: BP 103/71; PULSE 71; RESP 20; TEMP 36.1; O2SAT 97
[2020-11-04 07:55] VITALS: BP 114/81; PULSE 70; RESP 18; O2SAT 95
[2020-11-04] MEDS: sodium chloride 0.9% 1,000 ML 30 ML IV (08:02)
--- NOTE | 2020-11-04 08:45 | ANE.PACU2 ---
Inpatient post-anesthesia follow up: Airway intact: Yes Vital signs: Temperature 97 F Pulse Rate 70 Respiratory Rate 18 Blood Pressure 114/81 Pulse Oximetry 95 Oxygen Delivery Me thod Room Air Oxygen Flow Rate 5 Fraction of Inspir ed Oxygen Hydration adequate: Yes Mental status: Baseline
== END 2020-11-04 08:10 | disposition home or self-care (01) ==
PROVIDERS: PCP Nurse Practitioner Family; Visit Provider Surgery
DX: Z12.11 Encounter for screening for malignant neoplasm of colon (principal); K44.9 Diaphragmatic hernia without obstruction or gangrene; K20.90 Esophagitis, unspecified without bleeding; Z98.84 Bariatric surgery status; E03.9 Hypothyroidism, unspecified; Z82.49 Family history of ischemic heart disease and other diseases of the circulatory system; G47.30 Sleep apnea, unspecified; K21.9 Gastro-esophageal reflux disease without esophagitis; E66.01 Morbid (severe) obesity due to excess calories; Z68.42 Body mass index [BMI] 45.0-49.9, adult
CPT/HCPCS: 43235; J2704; J7030

== ENCOUNTER → 2021-02-03 08:33 | Outpatient (BNVA) | payer MEDICARE, SELFPAY | PROVIDERS: PCP Nurse Practitioner Family; Referring Provider Internal Medicine; Visit Provider Anesthesiology Pain Medicine | DX: G89.29 Other chronic pain (principal); M48.062 Spinal stenosis, lumbar region with neurogenic claudication; M47.816 Spondylosis without myelopathy or radiculopathy, lumbar region; M51.16 Intervertebral disc disorders with radiculopathy, lumbar region; R10.2 Pelvic and perineal pain; M79.605 Pain in left leg; Z79.891 Long term (current) use of opiate analgesic; Z87.891 Personal history of nicotine dependence | CPT/HCPCS: 99204 ==

== ENCOUNTER 2021-02-03 14:04 | Outpatient (CLI) | payer MEDICARE, SELFPAY ==
--- NOTE | 2021-02-03 14:18 | XR_ITS ---
WS: [id number] CHEST, 1 view. HISTORY: COVID 19 POSITIVE/FATIGUE MALAISE/COUGH COMPARISON: None available. Lungs are clear and well expanded. No pleural effusion or pneumothorax. Cardiac size: Mildly enlarged cardiac silhouette. Mediastinum/Aorta: Normal mediastinum. No osseous abnormality seen. XR/XR chest 1V [id number] IMPRESSION: Mild cardiomegaly. No pneumonia.
== END 2021-02-03 14:05 | disposition home or self-care (01) ==
PROVIDERS: PCP Nurse Practitioner Family; Visit Provider Nurse Practitioner Family
DX: R53.83 Other fatigue (principal); R05.9 Cough, unspecified; U07.1 COVID-19; R53.81 Other malaise; I51.7 Cardiomegaly
CPT/HCPCS: 71045

== ENCOUNTER → 2021-02-19 14:17 | Outpatient (BNVA) | payer MEDICARE, SELFPAY | PROVIDERS: PCP Family Medicine; Visit Provider Specialist | DX: R10.2 Pelvic and perineal pain (principal); M51.16 Intervertebral disc disorders with radiculopathy, lumbar region; G43.019 Migraine without aura, intractable, without status migrainosus; E66.01 Morbid (severe) obesity due to excess calories; Z87.891 Personal history of nicotine dependence; Z68.42 Body mass index [BMI] 45.0-49.9, adult | CPT/HCPCS: 99204 ==

== ENCOUNTER 2021-02-20 16:14 | Outpatient (CLI) | payer MEDICARE, SELFPAY ==
--- NOTE | 2021-02-20 16:45 | MR_ITS ---
WS: [id number] MRI LUMBAR SPINE NONCONTRAST HISTORY: M48.062 - Spinal stenosis, lumbar region with neurogenic claudication. Pain. COMPARISON: None available. TECHNIQUE: Sagittal and axial multisequence imaging is submitted. Moderate RIGHT curvature thoracic spine. Mild straightening of the normal cervical lordosis. Moderate spondylitic changes in the cervical and thoracic spine. No cord compression. Mild LEFT curvature lumbar spine. No marrow edema or acute fractures. Mild disc space narrowing and d esiccation throughout. Conus terminates normally at L1-2 disc level. L1-L2: Normal. L2-L3: Mild asymmetric disc bulging to the LEFT. Very small LEFT foraminal disc protrusion with annul ar fissures. Mild LEFT foraminal narrowing. L3-L4: Mild annular disc bulging and osteophytic ridging. Mild ligamentum flavum disease and facet ar thritis with fluid in the facet joints. No significant stenosis. L4-L5: Mild asymmetric disc bulging to the LEFT. There is a tiny central disc protrusion. The disc pr otrusion and disc bulging contacts but does not displace the traversing L5 nerve roots. Mild ligament um flavum and facet arthritis. No significant stenosis. L5-S1: Normal. Paravertebral soft tissues are normal. MR/MR lumbar spine wo con* [id number] IMPRESSION: 1. Mild LEFT scoliosis lumbar spine. 2. Small LEFT foraminal disc protrusion with annular fissure at L2-3. Very min imal LEFT foraminal narrowing. 3. Very shallow central disc protrusion at L4-5. There is disc contact on the traversing L5 nerve roots but no displacement. No significant stenosis. 4. Moderate RIGHT thoracic scoliosis.
== END 2021-02-20 16:15 | disposition home or self-care (01) ==
LOC: RADSHAW 16:15
PROVIDERS: PCP Family Medicine; Visit Provider Anesthesiology Pain Medicine
DX: M48.062 Spinal stenosis, lumbar region with neurogenic claudication (principal); M41.86 Other forms of scoliosis, lumbar region; M51.26 Other intervertebral disc displacement, lumbar region; M41.84 Other forms of scoliosis, thoracic region
CPT/HCPCS: 72148

== ENCOUNTER → 2021-03-04 08:52 | Outpatient (BNVA) | payer MEDICARE, SELFPAY | PROVIDERS: PCP Family Medicine; Visit Provider Anesthesiology Pain Medicine | DX: G89.29 Other chronic pain (principal); M47.816 Spondylosis without myelopathy or radiculopathy, lumbar region; M51.16 Intervertebral disc disorders with radiculopathy, lumbar region; R10.32 Left lower quadrant pain; M79.605 Pain in left leg; Z87.891 Personal history of nicotine dependence | CPT/HCPCS: 99214 ==

== ENCOUNTER → 2021-03-25 14:39 | Outpatient (BNVA) | payer MEDICARE, SELFPAY | PROVIDERS: PCP Family Medicine; Visit Provider Anesthesiology Pain Medicine | DX: M47.816 Spondylosis without myelopathy or radiculopathy, lumbar region (principal) | CPT/HCPCS: 64493; 64494; 64495; J3490 ==

== ENCOUNTER → 2021-04-08 10:49 | Outpatient (BNVA) | payer MEDICARE, SELFPAY | PROVIDERS: PCP Family Medicine; Visit Provider Anesthesiology Pain Medicine | DX: M47.816 Spondylosis without myelopathy or radiculopathy, lumbar region (principal); M51.16 Intervertebral disc disorders with radiculopathy, lumbar region; R10.30 Lower abdominal pain, unspecified; M79.605 Pain in left leg; Z87.891 Personal history of nicotine dependence | CPT/HCPCS: 99214 ==

== ENCOUNTER 2021-04-24 08:59 | Outpatient (CLI) | payer MEDICARE, SELFPAY ==
--- NOTE | 2021-04-24 09:08 | CT_ITS ---
WS: [id number] LDCT LUNG CANCER SCREENING TECHNIQUE: Noncontrast CT of the chest with coronal and sagittal reformatted images. CLINICAL INFORMATION: HX OF TOBACCO USE COMPARISON: None. DLP: 53.0 mGy.cm DIvol: 1.[address] scans at [facility] use at least one of these dose optimization techniques: automat ed exposure control; mA and/or kV adjustment per patient size (includes targeted exams where dose is matched to clinical indication); or iterative reconstruction. FINDINGS: Lungs are well aerated. No mediastinal or hilar lymphadenopathy. No suspicious pulmonary parenchymal abnormalities. Adrenal glands are normal. Fatty atrophy of the pancreas. Postoperative changes gastric bypass. Small esophageal hiatal hernia. Prominent axillary lymph nodes largest measuring 12 mm on the left. This c an be further evaluated with ultrasound. CT/CT lung screening [id number] IMPRESSION:Prominent bilateral axillary lymph nodes measuring up to 12 mm on th e left. This can be further evaluated with ultrasound. LUNG-RADS: 1S-Negative with Significant Findings FOLLOW UP: 12 Month: Continue annual screening with LDCT
== END 2021-04-24 09:00 | disposition home or self-care (01) ==
LOC: RAD 09:02
PROVIDERS: PCP Family Medicine; Visit Provider Family Medicine
DX: Z12.2 Encounter for screening for malignant neoplasm of respiratory organs (principal); Z87.891 Personal history of nicotine dependence
CPT/HCPCS: 71271

== ENCOUNTER 2021-05-05 14:01 | Outpatient (CLI) | payer MEDICARE, SELFPAY ==
--- NOTE | 2021-05-05 14:14 | XR_ITS ---
WS: [id number] RIGHT KNEE: 3 VIEW(S) TECHNIQUE: AP, oblique(s) and lateral. HISTORY: KNEE PAIN, RIGHT COMPARISON: None available. Status post RIGHT total knee arthroplasty. Arthroplasty components are in good position and alignment . No lucency around the hardware. No fracture. No joint space narrowing or osteophytes. No joint effusion. No soft tissue abnormality. XR/XR knee RT 3V* [id number] IMPRESSION: Status post RIGHT total knee arthroplasty. No evidence for loosening or fractur e.
== END 2021-05-05 14:02 | disposition home or self-care (01) ==
PROVIDERS: PCP Family Medicine; Visit Provider Family Medicine
DX: M25.561 Pain in right knee (principal); Z96.651 Presence of right artificial knee joint
CPT/HCPCS: 73562

== ENCOUNTER → 2021-05-15 09:50 | Outpatient (BNVA) | payer MEDICARE, SELFPAY | PROVIDERS: PCP Family Medicine; Visit Provider Physician Assistant | DX: M54.9 Dorsalgia, unspecified (principal) | CPT/HCPCS: 72110 ==

== ENCOUNTER → 2021-06-04 08:55 | Outpatient (BNVA) | payer MEDICARE, SELFPAY | PROVIDERS: PCP Family Medicine; Visit Provider Anesthesiology Pain Medicine | DX: M47.816 Spondylosis without myelopathy or radiculopathy, lumbar region (principal); M51.16 Intervertebral disc disorders with radiculopathy, lumbar region; M79.605 Pain in left leg; Z87.891 Personal history of nicotine dependence | CPT/HCPCS: 99213; 99214 ==

== ENCOUNTER 2021-06-16 13:37 | Outpatient (CLI) | payer MEDICARE, SELFPAY ==
--- NOTE | 2021-06-16 13:48 | US_ITS ---
WS: [email or web address] ULTRASOUND SOFT TISSUES LEFT axilla. HISTORY: AXILLARY LYMPHADENOPATHY COMPARISON: 04/24/2021 TECHNIQUE: 2-D and color Doppler imaging is submitted. There are a few lymph nodes identified within the LEFT axilla. There is mild asymmetry of the cortex. There is cortical thickening involving one of the LEFT axillary lymph nodes. A normal fatty hilum is still present. Normal vascularity. No RIGHT axillary lymph nodes. US/US soft tissue/extremity [id number] IMPRESSION: 1. Single, mildly abnormal LEFT axillary lymph node. The cortex is mildly asy mmetric. This may be a reactive lymph node or due to early neoplastic disease. No prior history of malignancy. This lymph node would be difficult to biopsy b ecause of its location. Consider short-term ultrasound follow-up after treatmen t for possible infectious cause.
== END 2021-06-16 13:38 | disposition home or self-care (01) ==
PROVIDERS: PCP Family Medicine; Visit Provider Family Medicine
DX: R59.0 Localized enlarged lymph nodes (principal)
CPT/HCPCS: 76882

== ENCOUNTER → 2021-06-25 14:14 | Outpatient (BNVA) | payer MEDICARE, SELFPAY | PROVIDERS: PCP Family Medicine; Visit Provider Anesthesiology Pain Medicine | DX: M54.50 Low back pain, unspecified (principal); Z79.891 Long term (current) use of opiate analgesic; Z87.891 Personal history of nicotine dependence | CPT/HCPCS: G0260; J1040; J3490 ==

== ENCOUNTER 2021-07-01 11:50 | Outpatient (CLI) | payer MEDICARE, SELFPAY ==
--- NOTE | 2021-07-01 12:06 | US_ITS ---
WS: [email or web address] ULTRASOUND SOFT TISSUES LEFT axilla. HISTORY: AXILLARY LYMPHADENOPATHY COMPARISON: 06/16/2021. TECHNIQUE: 2-D and color Doppler imaging is submitted. Previously described abnormal lymph node in the LEFT axilla with asymmetric cortical thickening is re identified today. There is a lymph node measuring 1.9 x 1.2 x 1.0 cm with asymmetric cortical thicken ing. The lymph node itself is not significantly enlarged. There has been a slight improvement in the cortical thickening. US/US soft tissue/extremity [id number] IMPRESSION: Persistent but slight improvement in the LEFT axillary lymph node with cortical thickening. This is a very small lymph node. I favor this still may be an reac tive lymph node. Recommend repeat ultrasound in 6 weeks. That should provide en ough time for this lymph node to return to normal or enlarged.
== END 2021-07-01 11:51 | disposition home or self-care (01) ==
LOC: RAD 11:54
PROVIDERS: PCP Family Medicine; Visit Provider Family Medicine
DX: R59.0 Localized enlarged lymph nodes (principal)
CPT/HCPCS: 76882

== ENCOUNTER → 2021-07-21 09:55 | Outpatient (BNVA) | payer MEDICARE, SELFPAY | PROVIDERS: PCP Family Medicine; Visit Provider Anesthesiology Pain Medicine | DX: M47.816 Spondylosis without myelopathy or radiculopathy, lumbar region (principal); M51.16 Intervertebral disc disorders with radiculopathy, lumbar region; M79.605 Pain in left leg; Z79.891 Long term (current) use of opiate analgesic; Z87.891 Personal history of nicotine dependence | CPT/HCPCS: 99213; 99214 ==

== ENCOUNTER → 2021-08-04 09:16 | Outpatient (BNVA) | payer MEDICARE, SELFPAY | PROVIDERS: PCP Family Medicine; Referring Provider Family Medicine; Visit Provider Specialist | DX: Z96.653 Presence of artificial knee joint, bilateral (principal); E66.01 Morbid (severe) obesity due to excess calories; Z68.42 Body mass index [BMI] 45.0-49.9, adult; Z91.81 History of falling; Z87.891 Personal history of nicotine dependence | CPT/HCPCS: 73560; 73565; 99213; 99214 ==

== ENCOUNTER 2021-08-11 13:25 | Outpatient (CLI) | payer MEDICARE, SELFPAY ==
--- NOTE | 2021-08-11 14:20 | XR_ITS ---
WS: [email or web address] Exam: XR chest 2V* [id number] Date/Time of Exam: 08/11/2021 2:25 PM Reason For Exam: INFLUENZA/COUGH Comparison 02/03/2021. The lungs are fully expanded and clear. Normal cardiomediastinal silhouette for technique. No pleural effusions. Bony structures are intact. Dextroscoliosis of the thoracic spine and levoscoliosis of th e visualized upper lumbar spine. XR/XR chest 2V* [id number] IMPRESSION: 1. No acute cardiopulmonary finding.
== END 2021-08-11 13:26 | disposition home or self-care (01) ==
LOC: LAB 13:27
PROVIDERS: PCP Family Medicine; Visit Provider Family Medicine
DX: J11.1 Influenza due to unidentified influenza virus with other respiratory manifestations (principal); R05.8 Other specified cough
CPT/HCPCS: 71046

== ENCOUNTER 2021-08-21 07:01 | Outpatient (CLI) | payer MEDICARE, SELFPAY ==
--- NOTE | 2021-08-21 07:10 | US_ITS ---
WS: [email or web address] ULTRASOUND SOFT TISSUES LEFT axilla HISTORY: AXILLARY LYMPHADENOPATHY COMPARISON: None available. TECHNIQUE: 2-D and color Doppler imaging is submitted. Ultrasound is directed to the LEFT axilla. Previously reported asymmetric cortical thickening of the LEFT axillary lymph node has nearly resolved. LEFT asymmetric cortical thickening much less apparent. The lymph node is normal size at 1.7 x 1.5 x 0.7 cm. The echogenic hilum remains. No increased vascu larity can be identified. US/US soft tissue/extremity 63788 IMPRESSION: Improving asymmetric cortical thickening of the LEFT axillary lymph node. No en larging or new lymph nodes. This was probably reactive adenopathy.
== END 2021-08-21 07:02 | disposition home or self-care (01) ==
LOC: RAD 07:02
PROVIDERS: PCP Family Medicine; Visit Provider Family Medicine
DX: R59.0 Localized enlarged lymph nodes (principal)
CPT/HCPCS: 76882

== ENCOUNTER 2021-10-13 11:53 | Outpatient (CLI) | payer MEDICARE, SELFPAY ==
--- NOTE | 2021-10-13 12:08 | XR_ITS ---
WS: [email or web address] Exam: XR chest 2V* [id number] Date/Time of Exam: 10/13/2021 12:10 PM Reason For Exam: COUGH Comparison 08/11/2021. Findings: The lungs are clear and fully expanded. Costophrenic angles are sharp. No infiltrates. Bronchovascula r relief appears normal. Cardiac silhouette is unremarkable. Bony elements are intact. XR/XR chest 2V* [id number] IMPRESSION: Unremarkable chest radiograph.
== END 2021-10-13 11:54 | disposition home or self-care (01) ==
LOC: RAD 11:56
PROVIDERS: PCP Family Medicine; Visit Provider Family Medicine
DX: R05.9 Cough, unspecified (principal)
CPT/HCPCS: 71046

== ENCOUNTER 2022-04-28 20:00 | Outpatient (CLI) | payer MEDICARE, SELFPAY | END 2022-04-28 20:01 | disposition home or self-care (01) | LOC: SLEEP 04-29 08:30 | PROVIDERS: PCP Family Medicine; Visit Provider Family Medicine | DX: G47.33 Obstructive sleep apnea (adult) (pediatric) (principal) | CPT/HCPCS: 95810 ==

== ENCOUNTER 2022-06-02 07:40 | Outpatient (CLI) | payer MEDICARE, SELFPAY ==
--- NOTE | 2022-06-02 07:53 | CT_ITS ---
WS: [email or web address] LDCT LUNG CANCER SCREENING TECHNIQUE: Noncontrast CT of the chest with coronal and sagittal reformatted images. CLINICAL INFORMATION: HX OF TOBACCO USE COMPARISON: April 24 2021 DLP: 77.67 mGy.cm DIvol: Mean CTDIvol: 1.60 (mGy) All CT scans at [facility] use at least one of these dose optimization techniques: automat ed exposure control; mA and/or kV adjustment per patient size (includes targeted exams where dose is matched to clinical indication); or iterative reconstruction. FINDINGS: Normal caliber thoracic aorta. No mediastinal or hilar lymphadenopathy. A few prominent LEFT axillary lymph nodes unchanged since 2020. The largest measures 1.2 cm. Fatty atrophy of the pancreas. Hepatomegaly and splenomegaly. Postoperative changes gastric bypass. M oderate esophageal hiatal hernia. Adrenal glands are normal. RIGHT suprahilar opacity adjacent to the pulmonary vasculature better appreciated today. This measure s smaller compared to April 24, 2021. In retrospect, this was present previously with a slightly h azy appearance and today appears more well circumscribed and slightly smaller. Recommend further eval uation with contrast-enhanced chest CT for better delineation from the pulmonary vasculature and/or P ET CT. This measures approximately 10 mm today. Prominent pretracheal lymph node measuring [address]/CT lung screening [id number] IMPRESSION: Recommend chest CT with contrast for better evaluation of the RIGHT suprahilar nodular opacity adjacent to the mediastinum and/or PET/CT LUNG-RADS: 4A-Probably Suspicious FOLLOW UP: See Report
== END 2022-06-02 07:41 | disposition home or self-care (01) ==
PROVIDERS: PCP Family Medicine; Visit Provider Family Medicine
DX: Z12.2 Encounter for screening for malignant neoplasm of respiratory organs (principal); Z87.891 Personal history of nicotine dependence
CPT/HCPCS: 71271

== ENCOUNTER 2022-06-16 06:13 | Outpatient (CLI) | payer MEDICARE, SELFPAY ==
--- NOTE | 2022-06-16 | CT_ITS ---
WS: [email or web address] CT CHEST TECHNIQUE: Contrast enhanced CT of the chest with coronal and sagittal reformatted images. CLINICAL INFORMATION: LUNG MASS COMPARISON: CT June 02, 2022 DLP: 650.[address] scans at [facility] use at least one of these dose optimization techniques: automated e xposure control; mA and/or kV adjustment per patient size (includes targeted exams where dose is matc hed to clinical indication); or iterative reconstruction. FINDINGS: Normal caliber thoracic aorta. Normal ascending and descending thoracic aorta. No mediastinal or ese r lymphadenopathy. Diffuse fatty infiltration of the liver. Normal portal vein and splenic vein. Hepa tomegaly and splenomegaly. Fatty atrophy of the pancreas. Postoperative changes proximal stomach like ly gastric bypass. Small esophageal hiatal hernia. Adrenal glands are normal. Celiac and SMA are hallman nt and the upper abdomen. A few prominent axillary lymph nodes unchanged. Previously described RIGHT supra hilar nodule is unchanged measuring 10 x 8 mm. In retrospect, lesion in this area in 2020 which was slightly larger with inflammatory changes. Today this is smaller and more well-circumscribed. This could be further evaluated with PET/CT or [address] follow-up. CT/CT chest w con* [id number] IMPRESSION: 1. Stable RIGHT hilar nodule adjacent to the mediastinum measuring 10 mm uncha nged from the recent examination. This can be further evaluated with PET/CT kervin gracie 3 month follow-up. PET/CT may be limited utility due to adjacent vascularit y and proximity to the mediastinum. 2. No mediastinal or hilar lymphadenopathy. 3. Hepatomegaly with splenomegaly. 4. Prior postoperative changes gastric bypass. 5. No other suspicious opacities.
[2022-06-16 07:11] LABS: Blood Urea Nitrogen 11 mg/dL (8-23); Glomerular Filtration Rate 72.9 mL/min (90-130)
[2022-06-16] MEDS: iohexol 350 mg/mL 500 mL Btl (per mL) IV (07:49)
== END 2022-06-16 06:14 | disposition home or self-care (01) ==
LOC: RAD 06:14
PROVIDERS: PCP Family Medicine; Visit Provider Family Medicine
DX: R91.8 Other nonspecific abnormal finding of lung field (principal); R16.2 Hepatomegaly with splenomegaly, not elsewhere classified; R91.1 Solitary pulmonary nodule; Z98.84 Bariatric surgery status
CPT/HCPCS: 71260; 82565; 84520; Q9967

== ENCOUNTER 2022-06-23 20:00 | Outpatient (CLI) | payer MEDICARE, SELFPAY | END 2022-06-23 20:01 | disposition home or self-care (01) | LOC: SLEEP 06-24 05:53 | PROVIDERS: PCP Family Medicine; Visit Provider Family Medicine | DX: G47.33 Obstructive sleep apnea (adult) (pediatric) (principal) | CPT/HCPCS: 95811 ==

== ENCOUNTER → 2022-07-03 10:27 | Outpatient (BNVA) | payer MEDICARE, SELFPAY | PROVIDERS: PCP Family Medicine; Visit Provider Nurse Practitioner Family | DX: M25.561 Pain in right knee (principal); E66.01 Morbid (severe) obesity due to excess calories; Z68.42 Body mass index [BMI] 45.0-49.9, adult | CPT/HCPCS: 73560; 73565; 99214 ==

== ENCOUNTER 2022-08-04 10:56 | Outpatient (RCR) | payer MEDICARE, SELFPAY | END 2022-08-23 23:59 | disposition home or self-care (01) | LOC: SPT 10:56 | PROVIDERS: Visit Provider Nurse Practitioner Family | DX: M25.561 Pain in right knee (principal); Z96.651 Presence of right artificial knee joint | CPT/HCPCS: 97110; 97161 ==

== ENCOUNTER 2022-08-04 12:56 | Outpatient (CLI) | payer MEDICARE, SELFPAY ==
--- NOTE | 2022-08-04 13:12 | XR_ITS ---
WS: [email or web address] EXAMINATION: XR foot RT 2V [id number] REASON FOR EXAM: R HEEL PAIN COMPARISON: None available. ORDER DATE: 08/04/2022 1:13 PM X-RAY FINDINGS: There are no fractures or dislocations. . Joint spaces are preserved. On the lateral projection only there appears to be some erosion of the cortex of the volar surface of the fifth distal metatarsal a nd possibly adjacent subcutaneous edema. There is a 3 mm plantar calcaneal spur. XR/XR foot RT 2V [id number] IMPRESSION: Recommend clinical correlation for the possibility of focal soft tissue infecti on near the undersurface of the distal fifth metatarsal and possible osteolytic change as noted above.
== END 2022-08-04 12:57 | disposition home or self-care (01) ==
PROVIDERS: PCP Family Medicine; Visit Provider Family Medicine
DX: M79.671 Pain in right foot (principal)
CPT/HCPCS: 73620

== ENCOUNTER → 2022-08-07 08:25 | Outpatient (BNVA) | payer MEDICARE, SELFPAY | PROVIDERS: PCP Family Medicine; Visit Provider Podiatrist Foot & Ankle Surgery | DX: M72.2 Plantar fascial fibromatosis (principal); M21.6X1 Other acquired deformities of right foot; M21.6X2 Other acquired deformities of left foot | CPT/HCPCS: 20550; 99203 ==

== ENCOUNTER → 2022-08-11 13:18 | Outpatient (BNVA) | payer MEDICARE, SELFPAY | PROVIDERS: PCP Family Medicine; Visit Provider Podiatrist Foot & Ankle Surgery | DX: M72.2 Plantar fascial fibromatosis; M21.6X1 Other acquired deformities of right foot; M21.6X2 Other acquired deformities of left foot; M77.51 Other enthesopathy of right foot and ankle | CPT/HCPCS: 99213 ==

== ENCOUNTER 2022-08-11 15:08 | Outpatient (CLI) | payer MEDICARE, SELFPAY | END 2022-08-11 15:09 | disposition home or self-care (01) | LOC: SPT 15:09 | PROVIDERS: PCP Family Medicine; Visit Provider Podiatrist Foot & Ankle Surgery | DX: Z46.89 Encounter for fitting and adjustment of other specified devices (principal); M72.2 Plantar fascial fibromatosis | CPT/HCPCS: 97760; L4397 ==

== ENCOUNTER 2022-08-24 06:00 | Outpatient (RCR) | payer MEDICARE, SELFPAY | END 2022-08-26 23:59 | disposition home or self-care (01) | LOC: SPT 06:00 | PROVIDERS: PCP Family Medicine; Visit Provider Nurse Practitioner Family | DX: M25.561 Pain in right knee (principal) | CPT/HCPCS: 97110 ==

== ENCOUNTER 2022-09-14 08:49 | Outpatient (CLI) | payer MEDICARE, SELFPAY ==
--- NOTE | 2022-09-14 09:03 | CT_ITS ---
WS: [email or web address] CT CHEST TECHNIQUE: Contrast enhanced CT of the chest with coronal and sagittal reformatted images. CLINICAL INFORMATION: LUNG MASS COMPARISON: CT chest June 16, 2022 DLP: 557.[address] scans at [facility] use at least one of these dose optimization techniques: automated e xposure control; mA and/or kV adjustment per patient size (includes targeted exams where dose is matc hed to clinical indication); or iterative reconstruction. FINDINGS: Previously described RIGHT hilar nodule adjacent to the mediastinum measures 11 mm today no t significantly changed since the prior study. Recommend continued surveillance. No mediastinal or hi lar lymphadenopathy. Normal caliber thoracic aorta. Normal ascending and descending thoracic aorta. Mild cardiomegaly. Mil d chronic emphysematous changes. No acute pulmonary infiltrates. No focal pneumonia or pleural fluid. Adrenal glands are normal. Diffuse fatty infiltration liver. Fatty atrophy of the pancreas. Small sp lenule. Celiac and SMA are patent in the upper abdomen. Postoperative changes involving the stomach l ikely gastric bypass. Small esophageal hiatal hernia. CT/CT chest w con* [id number] IMPRESSION: 1. Previously described RIGHT hilar nodule adjacent to the mediastinum measure s 10 mm today unchanged the prior study. Recommend continued surveillance. Desmond mmend 6 month follow-up chest CT. 2. No other significant changes compared to previous.
[2022-09-14 09:47] LABS: Blood Urea Nitrogen 12 mg/dL (8-23); Glomerular Filtration Rate 84.8 mL/min (90-130)
[2022-09-14] MEDS: iohexol 350 mg/mL 500 mL Btl (per mL) IV (09:54)
== END 2022-09-14 08:50 | disposition home or self-care (01) ==
PROVIDERS: PCP Family Medicine; Visit Provider Family Medicine
DX: R91.8 Other nonspecific abnormal finding of lung field (principal)
CPT/HCPCS: 71260; 82565; 84520; Q9967

== ENCOUNTER → 2022-09-16 08:13 | Outpatient (BNVA) | payer MEDICARE, SELFPAY | PROVIDERS: PCP Family Medicine; Visit Provider Podiatrist Foot & Ankle Surgery | DX: M72.2 Plantar fascial fibromatosis (principal); M21.6X1 Other acquired deformities of right foot; M21.6X2 Other acquired deformities of left foot | CPT/HCPCS: 99213 ==

== ENCOUNTER → 2022-11-20 10:07 | Outpatient (BNVA) | payer MEDICARE, SELFPAY | PROVIDERS: PCP Family Medicine; Visit Provider Podiatrist Foot & Ankle Surgery | DX: M72.2 Plantar fascial fibromatosis; M21.6X1 Other acquired deformities of right foot; M21.6X2 Other acquired deformities of left foot | CPT/HCPCS: 99213 ==

== ENCOUNTER → 2022-12-04 10:37 | Outpatient (BNVA) | payer MEDICARE, SELFPAY | PROVIDERS: PCP Family Medicine; Visit Provider Podiatrist Foot & Ankle Surgery | DX: M72.2 Plantar fascial fibromatosis; M21.6X1 Other acquired deformities of right foot; M21.6X2 Other acquired deformities of left foot | CPT/HCPCS: 99213 ==

== ENCOUNTER 2022-12-11 12:42 | Outpatient (CLI) | payer MEDICARE, SELFPAY ==
--- NOTE | 2022-12-11 12:58 | XR_ITS ---
WS: [email or web address] Left knee, 2 views, 12/11/2022 Clinical Data: PAIN OF BILATERAL KNEE REGIONS Comparison: Bilateral knees, right knee, 07/03/2022. Findings: The left knee arthroplasty remains in good position. No periprosthetic fractures or loosening is seen . The soft tissues are normal. Impression: Stable left knee arthroplasty.
--- NOTE | 2022-12-11 12:58 | XR_ITS ---
WS: [email or web address] Right knee, AP and lateral views, 12/11/2022 Clinical Data: PAIN OF BILATERAL KNEE REGIONS Comparison: Bilateral knees, right knee, 07/03/2022 Findings: The right knee arthroplasty remains in good position. No loosening or periprosthetic fractures are se en. The soft tissues are normal. Impression: Stable right knee arthroplasty.
== END 2022-12-11 12:43 | disposition home or self-care (01) ==
PROVIDERS: PCP Family Medicine; Visit Provider Family Medicine
DX: M25.561 Pain in right knee (principal); M25.562 Pain in left knee; Z96.653 Presence of artificial knee joint, bilateral
CPT/HCPCS: 73560

== ENCOUNTER 2023-01-28 11:06 | Emergency (ER) | payer MEDICARE, SELFPAY ==
--- NOTE | 2023-01-28 11:11 | ECG_ITS ---
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 Measurements Intervals Navarro Rate: 66 P: -7 WV: 173 QRS: 5 QRSD: 72 T: 11 QT: 370 QTc: 389 Interpretive Statements SINUS RHYTHM POSSIBLE ANTERIOR MYOCARDIAL INFARCTION , PROBABLY OLD [30 ms Q WAVE IN V3/V4, OR R < 0.2 mV IN V4] No previous ECG available for comparison Electronically Signed On 01-28-2023 15:55:51 CDT by Blake Jo M.D. [id number]
[2023-01-28 11:14] VITALS: BP 161/95; PULSE 67; RESP 17; TEMP 36.4; O2SAT 100
--- NOTE | 2023-01-28 11:28 | W.ED.CHESTPA ---
HPI - Chest Pain General: Chief Complaint: Chest Pain Stated Complaint: high bp/chest pain Time Seen by Provider: 01/28/23 11:22 History of Present Illness: This 63-year-old female presents to the ER with intermittent chest pain that has been going on for about a week. Patient notes that she could be sitting down when she experiences the pain and it usually last for a couple minutes and resolves spontaneously. There is no clear aggravating or relieving factors. Pain is mainly located in the chest with very little radiation. Patient notes that sometimes the pain is severe that she feels short of breath. She called her primary care physician's office and was advised to come to the ER for evaluation. Patient notes that she feels a little pain/pressure at this time and rates it at 2/10. Meanwhile, her blood pressure was found to be elevated though she tells me that she sees her primary care physician who is closely monitoring her blood pressure. Review of Systems Const: Denies: chills, body aches or change in appetite Eyes: Denies: change in vision or eye discharge ENMT: Denies: throat pain, dental pain or nasal discharge Card: Reports: chest pain and other (Shortness of breath associated with the pain.); Denies: lightheadedness : Denies: dysuria Musc: Denies: neck pain or back pain Neuro: Denies: headache(s) or weakness in extremities Psych: Denies: depression Erick/Lymph: Denies: easy bruising All/Imm: Denies: urticaria, tongue swelling or facial swelling PFS ED PFSH: Medical History Chronic pain Has had problems with chronic pain in her lower back/lower abdomen since at least 2009 and has been on medication-this is currently being managed by her primary care provider at this time. Hypothyroidism Diagnosed in her 50s being managed by her primary care provider. Does not have an fire patrol IBS (irritable bowel syndrome) Has had symptoms on and off since her 40s. Is not on any medication other than venlafaxine to help her symptoms. This is managed by her primary care provider. No pertinent past medical history Denies diabetes, asthma, hypertension, seizures, DVT/PE PCP: JULITO [place] [facility] History History of bilateral knee replacement Open procedures done in her 50s History of bladder surgery Think she has had 3 of 4 bladder surgeries prolapse ---> The first 1 was in approximately 1988 done for bladder prolapse and she states that she overdid it in about a month later had stitches fall and had to have repeat surgery done to fix everything again. She thinks she may have had one other surgery in about 1999 but is not certain. Her final surgery on her bladder was done in 2010 and it was done for pain to try to help with adhesions as that was thought to be the cause of pain. ---> Denied any mesh placement with any of these procedures. History of carpal tunnel release of both wrists Has had bilateral carpal tunnel release surgery as well as bilateral trigger finger release surgery in June and July [address] Fallon at [facility]. History of colonoscopy [address] Vazquez-per patient it was normal and plan is to repeat in 10 years History of gastric bypass Reports having had a laparoscopic gastric bypass procedure in 2018 or 2019. History of hysterectomy Laparoscopic/vaginal hysterectomy in the for vaginal bleeding. She was told there was no cancer after the hysterectomy. History of tonsillectomy As a child S/P bilateral oophorectomy 1989--laparoscopic surgery for removal of both ovaries for pain and ovarian cysts. Per patient no cancer identified at time of surgery Family History Brother Hypertension Hyperlipidemia Thyroid condition Denies family history of Colon cancer Ovarian cancer Diabetes Heart disease Breast cancer Uterine cancer Stroke Social History Smoking and tobacco status: former smoker (over 10 years ) Alcohol intake: current Alcohol intake frequency: holidays/special occasions only Substance/Drug Use: current Other substance/drug use details: CBD Pills Physical Exam Const: COMMON NORMALS: no acute distress, patient oriented x3, no limitations and alert HENMT: COMMON NORMALS: normocephalic HEAD & SCALP: normocephalic Eye: COMMON NORMALS: EOMs intact bilaterally Neck/C-Spine: COMMON NORMALS: full ROM and supple Chest: COMMONS NORMALS: normal inspection of the chest Resp: COMMON NORMALS: normal respiratory effort, No retractions, No use of accessory muscles and clear to auscultation bilaterally AUSCULTATION: clear to auscultation bilaterally Cardio: COMMON NORMALS: regular rate, regular rhythm and No murmurs present (Cardio) RATE: regular rate RHYTHM: regular rhythm GI: COMMON NORMALS: Normal to inspection, nondistended, normoactive bowel sounds present and non-tender : COMMON NORMALS: Yes no CVA tenderness BLADDER/KIDNEY EXAM: Yes no CVA tenderness Back/Pelvis: COMMON NORMALS: no CVA tenderness and no thoracic nor lumbar tenderness Extremity: GENERAL: Yes normal exam except as noted Neuro: COMMON NORMALS: patient oriented x3 and no focal motor deficits SENSORIUM/ORIENTATION: Yes alert Psych: COMMON NORMALS: mental status grossly normal and cooperative Course Vital Signs: Vital signs: Vital Signs Temperature 97.5 F L 01/28/23 11:14 Pulse Rate 87 01/28/23 14:34 Respiratory Rate 18 01/28/23 14:34 Blood Pressure 157/78 01/28/23 14:34 Pulse Oximetry 97 01/28/23 14:34 Oxygen Delivery Me thod Room Air 01/28/23 11:14 MDM - Chest Pain Medical Decision Making Medical decision making: Patient has elevated blood pressure but is currently not taking any medications for it. She notes that her primary care physician is closely monitoring her blood pressure. She presents to the ER with intermittent chest pain. EKG is negative for any acute ischemic changes and initial and repeat troponin are both negative. There is nothing to suggest that patient is having an acute coronary syndrome at this time. After receiving IV antihypertensives, blood pressure improved. She will be started on amlodipine daily and was advised to keep a daily log of her blood pressure readings which her primary care physician will reevaluate and adjust her medications accordingly. Reasons to return were discussed. Patient verbalized understanding and agrees with the plan. Lab Data 01/28/23 11:45 01/28/23 11:45 Laboratory Results WBC 5.90 10^3/uL (3.29-11.43) 01/28/23 11:45 RBC 4.68 10^6/uL (3.85-5.65) 01/28/23 11:45 Hgb 12.20 g/dL (11.27-16.99) 01/28/23 11:45 Hct 38.5 % (36-47) 01/28/23 11:45 MCV 82.3 fl (85-98) L 01/28/23 11:45 MCH 26.1 pg (27-33) L 01/28/23 11:45 MCHC 31.7 g/dL (30-55) 01/28/23 11:45 RDW 14.8 % (12.1-15.1) 01/28/23 11:45 Plt Count 429 10^3/cmm (157-399) H 01/28/23 11:45 MPV 9.0 fL (7.4-10.4) 01/28/23 11:45 Neut % (Auto) 70.5 % 01/28/23 11:45 Lymph % (Auto) 17.8 % 01/28/23 11:45 Prairie % (Auto) 6.8 % 01/28/23 11:45 Eos % (Auto) 4.1 % 01/28/23 11:45 Baso % (Auto) 0.5 % 01/28/23 11:45 Neut # (Auto) 4.16 10^3/uL (1.8-7.7) 01/28/23 11:45 Lymph # (Auto) 1.1 10^3/uL (0.8-4.8) 01/28/23 11:45 Prairie # (Auto) 0.4 10^3/uL (0.2-0.9) 01/28/23 11:45 Eos # (Auto) 0.2 10^3/uL (0.0-0.8) 01/28/23 11:45 Baso # (Auto) 0.0 10^3/uL (0.0-0.1) 01/28/23 11:45 Nucleated RBC % (auto) 0 % 01/28/23 11:45 Nucleated RBCs # 0.0 /100WBC 01/28/23 11:45 Sodium 138 mmol/L (136-145) 01/28/23 11:45 Potassium 4.2 mmol/L (3.5-5.1) 01/28/23 11:45 Chloride 100 mmol/L (98-107) 01/28/23 11:45 Carbon Dioxide 27 mmol/L (22-29) 01/28/23 11:45 Anion Gap 15.2 (5-19) 01/28/23 11:45 BUN 9 mg/dL (8-23) 01/28/23 11:45 Creatinine 0.6 mg/dL (0.5-0.9) 01/28/23 11:45 GFR Calculation 101.3 mL/min (90-130) 01/28/23 11:45 Glucose 101 mg/dL (65-115) 01/28/23 11:45 Calculated Osmolality 285 mOsm/kg (285-295) 01/28/23 11:45 Calcium 9.2 mg/dL (8.5-10.5) 01/28/23 11:45 Total Bilirubin 0.3 mg/dL (0.15-1.2) 01/28/23 11:45 AST 25 U/L (0-32) 01/28/23 11:45 ALT 25 U/L (0-33) 01/28/23 11:45 Alkaline Phosphatase 173 U/L (35-105) H 01/28/23 11:45 Troponin T Baseline < 6 ng/L (0-10) 01/28/23 11:45 Troponin T 120 Minute 6.0 ng/L (0-10) 01/28/23 13:40 Delta Troponin T 0.91241 ABS# (0-10) 01/28/23 13:40 Total Protein 7.1 g/dL (6.6-8.7) 01/28/23 11:45 Albumin 4.6 g/dL (3.5-5.2) 01/28/23 11:45 Globulin 2.5 g/dL (1.3-4.6) 01/28/23 11:45 All radiology interpretation(s) finalized by discharge EKG Data EKG 1: Interpretation: Sinus rhythm, rate of 66, normal axis, normal intervals, normal QRS. No STEMI Discharge Plan Discharge Patient Disposition: Home Clinical Impression: Hypertensive urgency, Intermittent chest pain Condition: Stable Prescriptions: New amlodipine 5 mg tablet 5 mg PO DAILY Qty: 30 0RF No Action cyclobenzaprine 5 mg tablet 5 mg PO TID PRN (Reason: Pain, Moderate) gabapentin 300 mg capsule 600 mg PO BID acetaminophen [Tylenol Extra Strength] 500 mg tablet 500 mg PO ONCE PRN (Reason: Pain) (DME) Night Splint See Rx Instructions .Route .MEDSUPPLY Qty: 1 0RF Rx Instructions: As directed cholecalciferol (vitamin D3) [Vitamin D3] 10 mcg (400 unit) Capsule 400 unit PO DAILY glucosamine sulfate 750 mg Tablet 750 mg PO DAILY levothyroxine 75 mcg Tablet 75 mcg PO DAILY venlafaxine 75 mg Tablet Extended Release 24hr 225 mg PO DAILY meloxicam 7.5 mg tablet 7.5 mg PO DAILY PRN (Reason: Pain) Women's Multivitamin 18 mg iron-400 mcg-500 mg Tablet 1 tab PO DAILY omeprazole 20 mg capsule,delayed release(DR/EC) 20 mg PO DAILY Belsomra 20 mg tablet 20 mg PO BEDTIME Discharge Orders: Discharge ED (Routine); Ordered 01/28/23 Ordered By: Petty Batista Referrals: Brodie Mcdonald MD [Primary Care Provider] - Discharge Diet: Usual diet Discharge Activity: Resume usual activity Patient Instructions: Opioid Safety, Pain Management Activity Restrictions/Additional Instructions: Take amlodipine daily as prescribed. Keep a daily log of your blood pressure readings and discuss these readings with your primary care physician who will adjust her medications accordingly. In addition your primary care physician will set you up for an outpatient stress test. Continue taking your usual home medications. Return if you develop chest pain that is constant and lasts for 30 minutes or more. Coding Level of Care Code ED Social Media Senior Associate for Kia Mcdermott
[2023-01-28] MEDS: nitroglycerin 0.4 mg sublingual Tablet SUBLINGUAL (11:52)
[2023-01-28] MEDS: aspirin 81 mg Chew Tablet 324 MG PO (11:52)
[2023-01-28 11:56] LABS: Basophils % 0.5 %; Eosinophils # 0.2 10^3/uL (0.0-0.8); Eosinophils % 4.1 %; Hematocrit 38.5 % (36-47); Lymphocytes # 1.1 10^3/uL (0.8-4.8); Lymphocytes % 17.8 %; Mean Corpuscular HGB Conc 31.7 g/dL (30-55); Mean Corpuscular Hemoglobin 26.1 pg (27-33); Mean Corpuscular Volume 82.3 fl (85-98); Monocytes # 0.4 10^3/uL (0.2-0.9); Monocytes % 6.8 %; Neutrophils # 4.16 10^3/uL (1.8-7.7); Neutrophils % 70.5 %; Nucleated Red Blood Cells % 0 %; Platelet Count 429 10^3/cmm (157-399); Red Blood Count 4.68 10^6/uL (3.85-5.65); Red Cell Distribution Width 14.8 % (12.1-15.1)
[2023-01-28 12:10] LABS: Troponin(5th) Baseline < 6 ng/L (0-10)
[2023-01-28 12:18] LABS: Alanine Aminotransferase 25 U/L (0-33); Albumin Level 4.6 g/dL (3.5-5.2); Alkaline Phosphatase 173 U/L (35-105); Anion Gap 15.2 (5-19); Aspartate Amino Transferase 25 U/L (0-32); Blood Urea Nitrogen 9 mg/dL (8-23); Calcium 9.2 mg/dL (8.5-10.5); Carbon Dioxide 27 mmol/L (22-29); Chloride 100 mmol/L (98-107); Globulin 2.5 g/dL (1.3-4.6); Glomerular Filtration Rate 101.3 mL/min (90-130); Glucose 101 mg/dL (65-115); Osmolality Calculated 285 mOsm/kg (285-295); Potassium 4.2 mmol/L (3.5-5.1); Sodium 138 mmol/L (136-145); Total Bilirubin 0.3 mg/dL (0.15-1.2); Total Protein 7.1 g/dL (6.6-8.7)
[2023-01-28] MEDS: hyDRALAzine 20 mg/mL INJ 1 mL 10 MG IVP (13:50)
--- NOTE | 2023-01-28 14:11 | XR_ITS ---
WS: [email or web address] EXAMINATION: XR chest 1V portable [id number] REASON FOR EXAM: intermittent chest pain COMPARISON: None available. ORDER DATE: 01/28/2023 2:11 PM TECHNIQUE: A single, portable frontal chest x-ray was obtained. X-RAY FINDINGS: The lungs are clear. Pleural spaces are clear. No pleural effusions or pneumothorax. Cardiomediastinal silhouette is normal. No evidence for pulmonary edema. Soft tissue and osseous structures are unremarkable. No tubes or lines are present. IMPRESSION: Unremarkable frontal portable chest x-ray.
[2023-01-28 14:15] LABS: Troponin 5 2HR Delta 0.00001 ABS# (0-10)
[2023-01-28] MEDS: labetalol 5 mg/mL SDV 20mL 20 MG IVP (14:21)
[2023-01-28 14:34] VITALS: BP 157/78; PULSE 87; RESP 18; O2SAT 97
== END 2023-01-28 15:22 | disposition home or self-care (01) ==
PROVIDERS: Emergency Provider Family Medicine; PCP Family Medicine
DX: R07.9 Chest pain, unspecified (principal); I16.0 Hypertensive urgency; Z87.891 Personal history of nicotine dependence
CPT/HCPCS: 36415; 71045; 80053; 84484; 85025; 93005; 96374; 96375; 99285; J0360; J3490

== ENCOUNTER 2023-02-05 15:19 | Outpatient (CLI) | payer MEDICARE, SELFPAY ==
--- NOTE | 2023-02-05 15:35 | XR_ITS ---
WS: [email or web address] Right foot, 3 views, 02/05/2023 Clinical Data: FOREIGN BODY SENSATION Comparison: Right foot, 08/04/2022 Findings: No fractures or dislocations are seen. No bone destruction or erosion is noted. The joint spaces and soft tissues are normal. No radiopaque foreign bodies are seen. There is a small plantar spur. Impression: Negative right foot.
== END 2023-02-05 15:20 | disposition home or self-care (01) ==
PROVIDERS: PCP Family Medicine; Visit Provider Family Medicine
DX: R09.A9 Foreign body sensation, other site (principal)
CPT/HCPCS: 73630

== ENCOUNTER → 2023-02-11 09:59 | Outpatient (BNVA) | payer MEDICARE, SELFPAY | PROVIDERS: PCP Family Medicine; Visit Provider Internal Medicine Cardiovascular Disease | DX: R07.9 Chest pain, unspecified (principal); I10 Essential (primary) hypertension; Z87.891 Personal history of nicotine dependence | CPT/HCPCS: 99204 ==

== ENCOUNTER 2023-02-19 08:00 | Outpatient (CLI) | payer MEDICARE, SELFPAY ==
--- NOTE | 2023-02-19 | ECG_ITS ---
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 Interpretive Statements NAME OF STUDY: LEXISCAN SESTAMIBI STRESS TEST INDICATION: CP/BURK PROCEDURE: At the baseline, the blood pressure was 125/74 mm Hg with a heart rate of 76 bpm. The electrocardiogram showed sinus rhythm, normal axis. Normal ST and T's. Artifact. ??? The Lexiscan was infused over a period of 20 seconds. A total of 0.4 milligrams of Lexiscan was infused. The stress phase was continued for a total of 5 minutes. Heart rate at the end of the stress phase was 77 bpm with a blood pressure of 118/74 mm Hg. The EKG at the peak infusion revealed sinus rhythm with no significant ST and T wave changes. ??? Sestamibi was injected 20 seconds after the Lexiscan infusion. ??? Blood pressure at the end of the recovery phase was 121/69 mm Hg with a heart rate of 77 beats per minute. ??? CONCLUSION: 1. Normal EKG response to LexiScan infusion. 2. No LexiScan induced chest pain or cardiac arrhythmia. 3. Normal blood pressure and heart rate response. 4. Sestamibi/sestamibi perfusion scan pending; see separate report. Electronically Signed On 02-28-2023 21:16:39 ELECTRONIC ORGAN MECHANIC by Alana Iraheta M.D. [email or web address], [id number]
--- NOTE | 2023-02-19 08:28 | NMCV_ITS ---
NM corinna perf SPECT r/s* [id number] Lily Elmore Age: 62 Gender: F : 1960 Exam Date: 02/19/2023 08:28 Ordering Phys: Alana Iraheta MD ([email or web address]) Technologist: JOSEPH Peterson Exam Location: [facility] Indications: CHEST PAIN, SHORTNESS OF BREATH STRESS TEST [facility] IMAGE PROTOCOL Rest/Stress 1 Lexiscan Day Radiopharmaceutical Dose (mCi) Administration Site Administered by Rest: Tc-99m 10.5 IV JOSEPH Peterson Sestamibi Stress:Tc-99m 32.7 IV JOSEPH Peterson Sestamibi Rest: 19-Feb-2023 60 Discovery 630 Stress: 19-Feb-2023 30 Discovery 630 0.4mg Lexiscan. Images obtained in supine and prone position. SPECT RESULTS Technical Quality: Excellent Raw Data Analysis: Normal Image Corrections: No attenuation or motion correction applied Summed Stress Score: 0 Summed Rest Score: 1 Summed Difference Score: 0 PERFUSION FINDINGS SPECT images demonstrate homogeneous tracer distribution throughout the myocardium. FUNCTIONAL RESULTS (calculated via Gated SPECT) Stress Image LV EF (%): 85 Stress EDV (mL):71 TID: 1.16 Stress ESV (mL):11 FUNCTIONAL FINDINGS: The left ventricle is normal in size. Transient Ischemia Dilatation of 1.16. The left ventricular ejection fraction is normal with a value of 85%. There is hyperdynamic left ventricular global systolic function. There is hyperdynamic left ventricular wall thickening. IMPRESSIONS 1. Myocardial perfusion imaging is normal. 2. There is hyperdynamic left ventricular global systolic function with no regional wall motion abnormality, LVEF=85%. 3. EKG portion of the study will be reported separately. 4. Scan indicates low risk for cardiac events. Alana Iraheta MD (Electronically Signed) Final Date: 19 February 2023 13:56 S
[2023-02-19 08:37] VITALS: BMI 45.8
[2023-02-19] MEDS: regadenoson 0.4 Mg/5 ml Syringe IVP (09:53)
[2023-02-19 10:22] VITALS: BP 121/69; PULSE 77
== END 2023-02-19 08:01 | disposition home or self-care (01) ==
PROVIDERS: PCP Family Medicine; Visit Provider Internal Medicine Cardiovascular Disease
DX: R07.9 Chest pain, unspecified (principal); R06.00 Dyspnea, unspecified; R06.02 Shortness of breath
CPT/HCPCS: 36415; 78452; 93017; 96374; A9500; J2785

== ENCOUNTER 2023-02-26 06:48 | Outpatient (CLI) | payer MEDICARE, SELFPAY ==
--- NOTE | 2023-02-26 07:00 | CT_ITS ---
WS: [id number] CT chest w con* [id number] HISTORY: LUNG MASS TECHNIQUE: Axial imaging performed through the thorax. Coronal and sagittal reformats are submitted. All CT scans at [facility] use at least one of these dose optimization techniques: automated exposure control; mA and/or kV adjustment per patient size (includes targeted exams where dose is mat ched to clinical indication); or iterative reconstruction. CONTRAST: Omnipaque 350; 100 mL IV. DLP: 634.15 mGy.cm COMPARISON: 06/02/2022, 06/16/2022 and 09/14/2022 Lungs and central airway: Well-circumscribed low-attenuation mass at the RIGHT hilum is reidentified measuring 11 x 5 mm. No increase in size since 06/16/2022 no additional mass or nodule. No pneumonia. Pleura: Normal. No pleural effusion. Heart and pericardium: Normal size heart with no pericardial effusion. Mediastinum and ese: Small mediastinal and hilar lymph nodes. No adenopathy. Vessels: Normal size aortic and pulmonary artery. No coronary artery calcifications. Chest wall and lower neck: No soft tissue masses. Upper abdomen: Moderate size hiatal hernia. Postsurgical changes are noted in the upper abdomen. Prob ably related to prior bypass surgery. Mild hepatic steatosis. No adrenal mass. Osseous structures: No destructive process. IMPRESSION: 1. Stable well-circumscribed 11 x 5 mm nodule at the RIGHT hilum. Recommend continued CT surveillance . Recommend follow-up chest CT in 6 months with IV contrast. 2. No adenopathy. No additional pulmonary nodules or mass.
[2023-02-26] MEDS: iohexol 350 mg/mL 500 mL Btl (per mL) IV (07:15)
== END 2023-02-26 06:49 | disposition home or self-care (01) ==
LOC: RAD 06:48
PROVIDERS: PCP Family Medicine; Visit Provider Family Medicine
DX: R91.8 Other nonspecific abnormal finding of lung field (principal); R91.1 Solitary pulmonary nodule
CPT/HCPCS: 71260; Q9967

== ENCOUNTER → 2023-03-04 14:00 | Outpatient (BNVA) | payer MEDICARE, SELFPAY | PROVIDERS: PCP Family Medicine; Visit Provider Podiatrist Foot & Ankle Surgery | DX: M84.376A Stress fracture, unspecified foot, initial encounter for fracture (principal); M21.6X1 Other acquired deformities of right foot; M21.6X2 Other acquired deformities of left foot | CPT/HCPCS: 99213 ==

== ENCOUNTER 2023-04-14 16:27 | Outpatient (CLI) | payer MEDICARE, SELFPAY ==
--- NOTE | 2023-04-14 16:45 | MR_ITS ---
WS: [id number] MRI RIGHT FOOT WITHOUT CONTRAST. COMPARISON: Radiograph 02/05/2023 Multiplanar, multisequence imaging is performed without contrast. History: Calcaneal pain. No fracture or marrow edema within the calcaneus. Achilles tendon is normal. There is a small amount of fluid surrounding the medial plantar aponeurosis suggesting planter fasciitis. There is no full-th ickness tear. Quality of this examination does not permit further evaluation of the fascia. Mild narrowing of the first metatarsophalangeal joint. There is a small erosion involving the distal surface of the navicular. There are no fractures or malalignment. IMPRESSION: Mild planter fasciitis involving the medial band. No calcaneal fracture or stress fracture.
== END 2023-04-14 16:28 | disposition home or self-care (01) ==
LOC: RAD 16:27
PROVIDERS: PCP Family Medicine; Visit Provider Podiatrist Foot & Ankle Surgery
DX: M84.376A Stress fracture, unspecified foot, initial encounter for fracture (principal); M72.2 Plantar fascial fibromatosis
CPT/HCPCS: 73718

== ENCOUNTER → 2023-04-27 08:43 | Outpatient (BNVA) | payer MEDICARE, SELFPAY | PROVIDERS: PCP Family Medicine; Visit Provider Podiatrist Foot & Ankle Surgery | DX: M79.671 Pain in right foot; M21.6X1 Other acquired deformities of right foot; M21.6X2 Other acquired deformities of left foot | CPT/HCPCS: 99213 ==

== ENCOUNTER 2023-05-07 13:08 | Outpatient (CLI) | payer MEDICARE, SELFPAY ==
--- NOTE | 2023-05-07 13:13 | MM_ITS ---
WS: [email or web address] BILATERAL 3D TOMOSYNTHESIS DIGITAL SCREENING MAMMOGRAM WITH CAD CLINICAL INFORMATION: SCREENING HISTORY: Screening mammogram. No current complaints. COMPARISON: 2020 TECHNIQUE: Bilateral CC and MLO views. FINDINGS: Fatty-replaced breasts bilaterally. No suspicious focal mass, asymmetry, calcifications, or embedded software architect ural distortion. No evidence of malignancy. Lucent centered calcification RIGHT breast. Incidental pu nctate calcifications. IMPRESSION: MM/[place] [id number] BI-RADS: 2-Benign FOLLOW UP: 1 Year Follow-up Recommend return to annual screening mammography.
== END 2023-05-07 13:09 | disposition home or self-care (01) ==
LOC: RAD 13:09
PROVIDERS: PCP Family Medicine; Visit Provider Family Medicine
DX: Z12.31 Encounter for screening mammogram for malignant neoplasm of breast (principal)
CPT/HCPCS: 77063; 77067; 99213

== ENCOUNTER 2023-05-12 11:04 | Outpatient (RCR) | payer MEDICARE, SELFPAY | END 2023-05-26 23:59 | disposition home or self-care (01) | LOC: SPT 11:04 | PROVIDERS: PCP Family Medicine; Visit Provider Podiatrist Foot & Ankle Surgery | DX: M72.2 Plantar fascial fibromatosis (principal) | CPT/HCPCS: 97161; 97530 ==

== ENCOUNTER 2023-05-27 06:00 | Outpatient (RCR) | payer MEDICARE, SELFPAY | END 2023-06-24 23:59 | disposition home or self-care (01) | LOC: SPT 06:00 | PROVIDERS: PCP Family Medicine; Visit Provider Podiatrist Foot & Ankle Surgery | DX: M72.2 Plantar fascial fibromatosis (principal) | CPT/HCPCS: 97033; 97035; 97140 ==

== ENCOUNTER → 2023-06-01 09:14 | Outpatient (BNVA) | payer MEDICARE, SELFPAY | PROVIDERS: PCP Family Medicine; Visit Provider Podiatrist Foot & Ankle Surgery | DX: M79.671 Pain in right foot; M21.6X1 Other acquired deformities of right foot; M21.6X2 Other acquired deformities of left foot | CPT/HCPCS: 99213 ==

== ENCOUNTER 2023-06-25 06:00 | Outpatient (RCR) | payer MEDICARE, SELFPAY | END 2023-07-25 23:59 | disposition home or self-care (01) | LOC: SPT 06:00 | PROVIDERS: PCP Family Medicine; Visit Provider Podiatrist Foot & Ankle Surgery | DX: M72.2 Plantar fascial fibromatosis (principal) | CPT/HCPCS: 97035; 97140 ==

== ENCOUNTER 2023-07-15 08:32 | Outpatient (CLI) | payer MEDICARE, SELFPAY ==
--- NOTE | 2023-07-15 08:42 | XR_ITS ---
WS: [email or web address] Chest 2 views, 07/15/2023 Clinical Data: EXPIRATORY WHEEZING/COUGH Comparison: Portable chest, 01/28/2023 Findings: No nodules, masses or effusions are seen. The heart is normal. The pulmonary vascularity is not increased. No pneumonia or pneumothorax is seen. The aortic arch and descending thoracic aorta s how mild tortuosity. There is a dextroscoliosis of the thoracic spine. There are surgical clips in th e left upper quadrant and overlying the L1 and L2 vertebral bodies. Impression: Atherosclerosis.
== END 2023-07-15 08:33 | disposition home or self-care (01) ==
LOC: RAD 08:35
PROVIDERS: PCP Family Medicine; Visit Provider Nurse Practitioner Family
DX: R06.2 Wheezing (principal); R05.8 Other specified cough
CPT/HCPCS: 71046

== ENCOUNTER 2023-07-27 13:07 | Outpatient (CLI) | payer MEDICARE, SELFPAY ==
--- NOTE | 2023-07-27 13:19 | XR_ITS ---
WS: [email or web address] Examination: XR chest 2V* [id number] Reason for Exam: COUGH Date: July 27, 2023 Comparison: July 15, 2023 Findings: The heart is prominent in size The lung markings are diffusely increased bilaterally the fissures are subtly thickened which is new as well. No large effusions are seen. Impression: Faint bilateral infiltrative changes are identified. While the fissures are subtly thickened and ther e are no large effusions noted.
== END 2023-07-27 13:08 | disposition home or self-care (01) ==
LOC: RAD 13:09
PROVIDERS: PCP Family Medicine; Visit Provider Family Medicine
DX: R05.9 Cough, unspecified (principal); R91.8 Other nonspecific abnormal finding of lung field
CPT/HCPCS: 71046

== ENCOUNTER → 2023-08-10 12:51 | Outpatient (BNVA) | payer MEDICARE, SELFPAY | PROVIDERS: PCP Family Medicine; Visit Provider Podiatrist Foot & Ankle Surgery | DX: M21.6X1 Other acquired deformities of right foot; M21.6X2 Other acquired deformities of left foot | CPT/HCPCS: 99213 ==

== ENCOUNTER → 2023-08-19 09:58 | Outpatient (BNVA) | payer MEDICARE, SELFPAY | PROVIDERS: PCP Family Medicine; Visit Provider Nurse Practitioner Family | DX: R07.9 Chest pain, unspecified (principal); I10 Essential (primary) hypertension; Z87.891 Personal history of nicotine dependence | CPT/HCPCS: 99214 ==

== ENCOUNTER 2023-10-01 09:51 | Outpatient (CLI) | payer MEDICARE, SELFPAY ==
--- NOTE | 2023-10-01 10:05 | XR_ITS ---
WS: [email or web address] XR chest 2V* [id number] REASON FOR EXAM: ACUTE CHRONIC BRONCHITIS FINDINGS: The chest is relatively unchanged compared to 08/11/2021. Moderate tortuosity of the thoracic aorta. Normal heart size. Calcified granulomatous disease in both hemithoraces. No acute pulmonary parenchymal or pleural abnormality is identified. Moderate thoracolumbar dextroscoliosis. Mild degenerative spondylosis in the midthoracic spine. XR/XR chest 2V* [id number] IMPRESSION: Stable chest without acute abnormality.
== END 2023-10-01 09:52 | disposition home or self-care (01) ==
LOC: RAD 09:53
PROVIDERS: PCP Family Medicine; Visit Provider Family Medicine
DX: J42 Unspecified chronic bronchitis (principal); J20.9 Acute bronchitis, unspecified; Q25.46 Tortuous aortic arch; J84.10 Pulmonary fibrosis, unspecified; M41.35 Thoracogenic scoliosis, thoracolumbar region
CPT/HCPCS: 71046

== ENCOUNTER 2023-10-07 11:07 | Observation (INO) | payer MEDICARE, SELFPAY ==
[2023-10-07] VITALS (46 sets, daily range): BP systolic 86–120; BP diastolic 53–78; PULSE 64–96; RESP 14–28; TEMP 36.9–37.1; O2SAT 92–97; BMI 42.6
--- NOTE | 2023-10-07 07:30 | XACV_ITS ---
Exam Room: 2 Ht: 150 cm Wt: 96 kg BSA: 2.05 m2 Gender: Female : 1960 Any Known Allergies: Other Exam Priority: Routine Procedure(s): Procedure Description: Diagnostic procedure Procedure Description: Left Heart Catheterization Procedure Description: Left ventriculography Procedure Description: Coronary Angiography Diagnostic Cath Status: Elective Diagnostic Findings * No significant disease noted in the Left Main, Left Anterior Descending, Right, or Circumflex coronary arteries. * Coronary angiography shows right dominance. Conclusions 1. No significant disease noted in the Left Main, Left Anterior Descending, Right, or Circumflex coronary arteries. 2. Normal left ventricular systolic function. Ejection fraction of 60%. Recommendations * Aggressive risk factor modification. We will uptitrate antianginal medications. * Outpatient cardiology follow up in 4 weeks. Interventional RX Recommendation: medical therapy and/or counseling Diagnostic RX Recommendation: medical therapy and/or counseling Ventriculography Ejection Fraction: 60.0 % Pressures Phase:Rest AO : 94 / 71 ( 83 ) @ 10:45:00 AM 114 / 64 ( 85 ) @ 10:52:00 AM 113 / 63 ( 85 ) @ 10:52:00 AM LV : 118 / -3 / 19 @ 10:51:00 AM 115 / 0 / 22 @ 10:52:00 AM 115 / 0 / 21 @ 10:52:00 AM Valves Phase:DefaultPhase AV : 2.0 @ 10:01:53 AM 2.0 @ 10:01:53 AM AV Mean Gradient: 0.0 @ 10:01:53 AM 0.0 @ 10:01:53 AM Clinical Evaluation EBL: 5mL-10mL Procedural Details Pre-Procedure Time Out. Identified patient by full name and date of as verbalized by the patient/guarantor. Does the consent match the physician's order: Yes. Accurate & Complete Informed Consent: Yes. Inpatient/Outpatient History & Physical on Chart: Yes. If H&P is completed, is and addenduem needed: No; If yes, is the addendum complete: N/A. Visualize and Verify Site with Patient/Guarantor: N/A. Relevant Radiology Images available: Yes. Pre-op teaching completed and patient verbalized understanding. The risks, benefits, and alternatives of sedation and/or procedure were discussed by physician. The patient agrees to continue. Procedure started. Physician arrived. Current Diagnosis : Chest Pain. [facility] Clinical Fraility Score: 3: Managing Well. Therapist Phys Indications: Worsening Angina. Chest Pain Symptom Assessment: Typical Angina Symptoms. Current diagnosis: Chest Pain. PERRLA. 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 Lungs clear x 5 lobes. IV Site on Arrival: 20 gauge in the right anticubital. IV Fluids: 0.9% NaCl at KVO. 0 mL infused prior to wheelabrator operator. Pre Procedural Pulses: bilateral dorsalis pedis was 3+. Pre Procedural Pulses: bilateral posterior tibial was Doppled. Pre Procedural Pulses: bilateral radial was 3+. Oxygen started at 2liters/min via nasal canula. right groin was prepped with chloroprep then draped in the usual sterile fashion. right radial was prepped with chloroprep then draped in the usual sterile fashion. Baseline sample Acquired. HR: 71 BPM. Physician scrubbed in. Immediate Pre-Procedure Time Out. Correct Patient: Yes; Correct Procedure: Yes; Correct Site: Yes; Correct Patient Position: Yes; Correct Supplies: Yes; Dried Flammable Prep: Yes; Blood Products Available: N/A;. Lidocaine 1% infiltrated to the right radial. Ultrasound being used to obtain access. Arterial access obtained. Wire unable to advance. Wire and needle out. TR band placed. Hemostasis obtained. Unable to obtain radial access. MD attempting to gain access in the Femoral artery. Lidocaine 1% infiltrated to the right groin. Ultrasound being used to obtain access. Arterial access obtained with micropuncture set. A 5 english JL4 catheter in over wire. Multiple views taken of left coronary artery. Catheter removed over the standard wire. A 5 english JR4 catheter in over wire. Multiple views taken of right coronary artery. Catheter removed over the standard wire. A 5 english Angled Pig catheter in over wire. EDP Sample taken: LV 118/-4,19; HR: 86 BPM; SpO2: 95%. LV gram performed in ADAMS @ 10 mL/second for a total of 30 mL. EDP Sample taken: LV 115/-1,22; HR: 84 BPM; SpO2: 95%. Pullback taken: LV 115/-1,21; AO 114/64(85); Mean: 0mmHg, Peak to Peak: 2mmHg, SEP: 9sec/min; HR: 85 BPM; SpO2: 95%. Catheter removed over the standard wire. A Right femoral angiogram was performed to determine safe placement of closure device. A Mynx was unsuccessful obtaining hemostatsis at the Right Femoral artery insertion site. Total IV fluids: 50 mL. Medication's Wasted: Lidocaine 1% = 5 mL. Medication's Wasted: Nitro = 49.8 mcg. Medication's Wasted: Heparin = 1000 units. Medication's Wasted: Other = Fentanyl 25 mcg. Post Procedure: Pulses reassessed and unchanged. PERRLA. 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 No VTE prophylaxis required. Complications: None. Estimated blood loss: 5mL-10mL. Responsiveness - Normal response to verbal stimuli; alert and oriented, PERRLA. Airway - Unaffected, no intervention required; spontaneous ventilation. Circulation: W/N/L, pulses unchanged. Nausea/Vomiting: No. Vital chart was stopped. Procedure completed. Patient transferred by stretcher to CPRU. Access Site Site: Right Femoral artery Sheath Size: 6 Fr Hemostasis Method: Mynx Hemostasis Success: Unsuccessful Procedure Medications Start: 9:25 AM Stop: 9:25 AM Medication: Versed Amount: 1 mg Route: I.V. Start: 9:26 AM Stop: 9:26 AM Medication: Fentanyl Amount: 50 mcg Route: I.V. Start: 9:34 AM Stop: 9:34 AM Medication: Nitrogylcerin Amount: 200 mcg Route: I.A. Start: 9:35 AM Stop: 9:35 AM Medication: Versed 1 mg and Fentanyl 25 mcg Amount: 1 Route: I.V. I, the attending physician, have reviewed and verified all procedure medications. Yes, all medications given per verbal order History/Risk Factors Hypertension: Yes Dyslipidemia: No Peripheral Arterial Disease (PAD): No Myocardial Infarction (GA): No Obesity: Yes Renal Disease: No Tobacco Use: Former Prior Interventions PCI: No CABG: No Valve Surgery: No
[2023-10-07] MEDS: diphenhydrAMINE 50 mg Capsule PO (07:55)
[2023-10-07] MEDS: aspirin 325 mg Tablet PO (07:55)
[2023-10-07 08:05] LABS: Basophils # 0.1 10^3/uL (0.0-0.1); Basophils % 0.7 %; Eosinophils # 0.4 10^3/uL (0.0-0.8); Eosinophils % 5.2 %; Hematocrit 31.8 % (36-47); Lymphocytes # 1.5 10^3/uL (0.8-4.8); Lymphocytes % 21.4 %; Mean Corpuscular HGB Conc 29.9 g/dL (30-55); Mean Corpuscular Hemoglobin 20.9 pg (27-33); Mean Platelet Volume 8.5 fL (7.4-10.4); Monocytes # 0.6 10^3/uL (0.2-0.9); Neutrophils # 4.62 10^3/uL (1.8-7.7); Neutrophils % 64.4 %; Nucleated Red Blood Cells % 0 %; Platelet Count 605 10^3/cmm (157-399); Red Blood Count 4.54 10^6/uL (3.85-5.65); Red Cell Distribution Width 16.7 % (12.1-15.1); White Blood Count 7.16 10^3/uL (3.29-11.43)
[2023-10-07 08:16] LABS: Anion Gap 12.8 (5-19); Blood Urea Nitrogen 14 mg/dL (8-23); Calcium 9.3 mg/dL (8.5-10.5); Carbon Dioxide 27 mmol/L (22-29); Chloride 98 mmol/L (98-107); Creatinine Clr Calc Pharmacy 124.2875; Glomerular Filtration Rate 84.5 mL/min (90-130); Glucose 109 mg/dL (65-115); Osmolality Calculated 279 mOsm/kg (285-295); Potassium 3.8 mmol/L (3.5-5.1); Sodium 134 mmol/L (136-145)
--- NOTE | 2023-10-07 09:27 | W.PM.OPSFHP ---
Same Day Surgery H&P Indication for Procedure/HPI DATE OF PROCEDURE: October 07, 2023 CHIEF COMPLAINT/INDICATIONFOR SURGICAL PROCEDURE: Worsening angina PREOP DIAGNOSIS: Worsening angina PLANNED PROCEDURE: Operation Date: 10/07/23 08:30 Proposed Procedures p Cardiac Catheterization 18399, R07.9, I10(Left) - David Alvarado M.D 63-year-old woman with past medical history of hypertension who has been having worsening chest pain symptoms. Stress test in the past was normal. However given progressive worsening of the symptoms, plan for coronary angiogram with possible PCI. Medications/Allergies* Home Medications Medication Instructions Recorded Confirmed Type cyclobenzaprine 5 mg tablet 5 mg PO TID PRN Pain, Moderate 01/11/20 10/07/23 History cholecalciferol (vitamin D3) 10 400 unit PO DAILY 07/19/20 10/06/23 History mcg (400 unit) capsule (Vitamin D3) glucosamine sulfate 750 mg tablet 750 mg PO DAILY 07/19/20 10/06/23 History levothyroxine 75 mcg tablet 75 mcg PO DAILY 10/30/20 10/06/23 History venlafaxine 75 mg tablet,extended 225 mg PO DAILY 10/30/20 10/06/23 History release 24 hr acetaminophen 500 mg tablet 500 mg PO ONCE PRN Pain 07/21/21 10/06/23 History (Tylenol Extra Strength) meloxicam 7.5 mg tablet 7.5 mg PO DAILY PRN Pain 01/28/23 10/06/23 History suvorexant 20 mg tablet (Belsomra) 20 mg PO BEDTIME 01/28/23 10/07/23 History aspirin 81 mg tablet,delayed 81 mg PO DAILY 02/11/23 10/06/23 History release (Adult Low Dose Aspirin) gabapentin 400 mg capsule 400 mg PO QID 02/11/23 10/06/23 History nitroglycerin 0.4 mg sublingual 0.4 mg sublingual Q5M PRN CP 02/11/23 10/06/23 History tablet omeprazole 20 mg capsule,delayed 60 mg PO DAILY 02/11/23 10/06/23 History release amlodipine 5 mg tablet 5 mg PO DAILY 08/19/23 10/07/23 History benzonatate 100 mg capsule 100 mg PO BID PRN Cough 10/06/23 10/06/23 History levofloxacin 500 mg tablet 500 mg PO DAILY 10/06/23 10/07/23 History magnesium oxide-magnesium amino 2 cap PO DAILY 10/06/23 10/07/23 History acid chelate 300 mg capsule Allergies/Adverse Reactions Allergy/AdvReac Type Severity Reaction Status Date / Time lorazepam [From Ativan] AdvReac ADR-Agitate Verified 10/06/23 10:06 d morphine AdvReac [id number] Verified 10/06/23 10:06 take hydrocodone/Dilaudid Current Medications: Generic Name Dose Route Start Last Admin Trade Name Prudence PRN Reason Stop Dose Admin Sodium Chloride 1,000 mls @ 50 mls/hr 10/07/23 07:30 10/07/23 08:05 Sodium Chloride 0.9% IV 10/08/23 03:29 Not Given .Q20H ONE Pertinent History/Comorbid Conditions* Medical History (Updated 08/20/23 @ 14:04 by JULITO Rosenberg) HTN (hypertension) Chronic pain Has had problems with chronic pain in her lower back/lower abdomen since at least 2009 and has been on medication-this is currently being managed by her primary care provider at this time. No pertinent past medical history Denies diabetes, asthma, hypertension, seizures, DVT/PE PCP: JULITO [place] IBS (irritable bowel syndrome) Has had symptoms on and off since her 40s. Is not on any medication other than venlafaxine to help her symptoms. This is managed by her primary care provider. Hypothyroidism Diagnosed in her 50s being managed by her primary care provider. Does not have an store protection specialist Surgical History (Updated 10/01/20 @ 04:57 by Christi Robbins MD) S/P bilateral oophorectomy 1989--laparoscopic surgery for removal of both ovaries for pain and ovarian cysts. Per patient no cancer identified at time of surgery History of carpal tunnel release of both wrists Has had bilateral carpal tunnel release surgery as well as bilateral trigger finger release surgery in June and July [address] Fallon at [facility] [place]. History of tonsillectomy As a child History of hysterectomy Laparoscopic/vaginal hysterectomy in the for vaginal bleeding. She was told there was no cancer after the hysterectomy. History of bilateral knee replacement Open procedures done in her 50s History of gastric bypass Reports having had a laparoscopic gastric bypass procedure in 2018 or 2019. History of bladder surgery Think she has had 3 of 4 bladder surgeries prolapse ---> The first 1 was in approximately 1988 done for bladder prolapse and she states that she overdid it in about a month later had stitches fall and had to have repeat surgery done to fix everything again. She thinks she may have had one other surgery in about 1999 but is not certain. Her final surgery on her bladder was done in 2010 and it was done for pain to try to help with adhesions as that was thought to be the cause of pain. ---> Denied any mesh placement with any of these procedures. History of colonoscopy [address] Vazquez-per patient it was normal and plan is to repeat in 10 years Family History (Updated 09/30/20 @ 14:03 by Liliam Linn RN) Hyperlipidemia Brother Hypertension Brother Thyroid disease Brother Denies family history of Colon cancer Ovarian cancer Diabetes Heart disease Breast cancer Uterine cancer Stroke Social History Smoking and tobacco/nicotine status: former use of tobacco/nicotine (over 10 years ) Alcohol intake: current Alcohol intake frequency: holidays/special occasions only Substance/Drug Use: current Other substance/drug use details: CBD Pills Pertinent Exam Findings alert, oriented x 3, clear to auscultation bilaterally and regular rate & rhythm Conscious Sedation Assessment PATIENT ASSESSED PRIOR TO SEDATION, WITH NO CHANGE NOTED: Yes AIRWAY EVAL/ANESTHESIA PLAN: normal airway, ASA III, Local Anesthesia, Risks, benefits & alternatives of sedation and/or procedure discussed and Patient agrees to continue as planned ADDITIONAL INFORMATION: Moderate sedation Recommendations Surgery/Procedure today (Left heart cath with possible percutaneous coronary intervention) Coding Level of Care Code Acute Code for Chg Sharron
== END 2023-10-07 15:34 | disposition home or self-care (01) ==
LOC: CSU 11:10
PROVIDERS: Admitting Provider Internal Medicine; PCP Family Medicine; Visit Provider Internal Medicine
DX: R07.9 Chest pain, unspecified (principal); I10 Essential (primary) hypertension; E03.9 Hypothyroidism, unspecified; Z79.82 Long term (current) use of aspirin; Z87.891 Personal history of nicotine dependence
CPT/HCPCS: 36415; 80048; 85025; 93458; 96374; 96375; 99152; 99153; C1760; C1769; C1887; C1894; CATH; G0269; G0378; J1644; J2250; J3010; J3490; J7030; Q0163; Q9967

== ENCOUNTER 2023-10-14 10:30 | Outpatient (CLI) | payer MEDICARE, SELFPAY ==
--- NOTE | 2023-10-14 10:09 | CTR_ITS ---
PROCEDURE INFORMATION: Exam: CT Chest With Contrast; Diagnostic Exam date and time: 10/14/2023 10:33 AM Age: 63 years old Clinical indication: Condition or disease; Lung condition and disease; Other: Mass; Additional info: Lung mass TECHNIQUE: Imaging protocol: Diagnostic computed tomography of the chest with contrast. Radiation optimization: All CT scans at this facility use at least one of these dose optimization techniques: automated exposure control; mA and/or kV adjustment per patient size (includes targeted exams where dose is matched to clinical indication); or iterative reconstruction. Contrast material: OMNI 350; Contrast volume: 100 ml; Contrast route: INTRAVENOUS (IV); COMPARISON: CT chest w con* [id number] 02/26/2023 7:09 AM RADIATION DOSE METRICS: Total DLP (mGy-cm): 532.16 FINDINGS: Lungs: Tiny amount of bilateral dependent subsegmental atelectasis are minimally increased. Otherwise, unremarkable. Pleural spaces: Unremarkable. No pneumothorax. No pleural effusion. Heart: Unremarkable. No cardiomegaly. No pericardial effusion. Coronary arteries: No calcification in the visualized coronary arteries. Lymph nodes: Slight increase in size of paratracheal lymph node on the right measuring 1.2 cm by 0.7 cm x 1.7 cm. New borderline right pulmonary hilar lymphadenopathy. Slightly increased mild left axillary lymphadenopathy. No other obvious lymphadenopathy. Vasculature: Unremarkable. No aortic aneurysm. Liver: Diffuse fatty infiltration of the liver is unchanged. Otherwise, unremarkable visualized liver. Stomach: Again noted are surgical changes involving the stomach. Bones/joints: Unchanged mild scoliosis. Unchanged minimal and mild multilevel spondylosis. Otherwise, unremarkable. Soft tissues: Otherwise, unremarkable visualized body wall. Otherwise, unremarkable soft tissues. CT/CT chest w con* [id number] IMPRESSION: 1. The 11 mm x 5 mm nodule in the superior right pulmonary hilum remains unchanged. 2. However, there has been a slight increase in lymphadenopathy. 3. Additional details as above. Unchanged.
[2023-10-14] MEDS: iohexol 350 mg/mL 500 mL Btl (per mL) IV (10:54)
== END 2023-10-14 10:31 | disposition home or self-care (01) ==
PROVIDERS: PCP Family Medicine; Visit Provider Family Medicine
DX: R91.8 Other nonspecific abnormal finding of lung field (principal); R59.0 Localized enlarged lymph nodes; K76.0 Fatty (change of) liver, not elsewhere classified
CPT/HCPCS: 71260; Q9967

== ENCOUNTER → 2023-10-21 10:28 | Outpatient (BNVA) | payer MEDICARE, SELFPAY | PROVIDERS: PCP Family Medicine; Visit Provider Nurse Practitioner Family | DX: L57.0 Actinic keratosis (principal); L82.0 Inflamed seborrheic keratosis; L81.4 Other melanin hyperpigmentation; L57.3 Poikiloderma of Civatte; D18.01 Hemangioma of skin and subcutaneous tissue; D23.71 Other benign neoplasm of skin of right lower limb, including hip; L82.1 Other seborrheic keratosis; Z85.828 Personal history of other malignant neoplasm of skin | CPT/HCPCS: 17000; 17110; 99203 ==

== ENCOUNTER → 2023-11-03 15:13 | Outpatient (BNVA) | payer MEDICARE, SELFPAY | PROVIDERS: PCP Family Medicine; Visit Provider Internal Medicine | DX: R07.9 Chest pain, unspecified (principal); I10 Essential (primary) hypertension; Z87.891 Personal history of nicotine dependence | CPT/HCPCS: 99214 ==

== ENCOUNTER → 2023-11-18 10:41 | Outpatient (BNVA) | payer MEDICARE, SELFPAY | PROVIDERS: PCP Family Medicine; Visit Provider Internal Medicine Critical Care Medicine | DX: R05.3 Chronic cough (principal); F17.201 Nicotine dependence, unspecified, in remission; K21.9 Gastro-esophageal reflux disease without esophagitis; K44.9 Diaphragmatic hernia without obstruction or gangrene; R06.09 Other forms of dyspnea; E66.01 Morbid (severe) obesity due to excess calories; Z68.41 Body mass index [BMI] 40.0-44.9, adult; Z71.82 Exercise counseling; Z71.3 Dietary counseling and surveillance | CPT/HCPCS: 99204 ==

== ENCOUNTER 2023-12-08 11:12 | Outpatient (CLI) | payer MEDICARE, SELFPAY ==
--- NOTE | 2023-12-08 11:21 | XR_ITS ---
WS: [email or web address] Examination: XR hip RT 2-3V wo/w pel* [id number] Reason for Exam: PAIN IN RIGHT HIP Date: December 08, 2023 Comparison: None. Findings: The bone density is maintained. There is no destruction. There is no fracture or dislocation. The hip joint spaces appear symmetric XR/XR hip RT 2-3V wo/w pel* [id number] Impression: No acute bony abnormality is identified.
== END 2023-12-08 11:13 | disposition home or self-care (01) ==
LOC: RAD 11:16
PROVIDERS: PCP Family Medicine; Visit Provider Family Medicine
DX: M25.551 Pain in right hip (principal)
CPT/HCPCS: 73502

== ENCOUNTER 2023-12-10 08:42 | Outpatient (CLI) | payer MEDICARE, SELFPAY ==
--- NOTE | 2023-12-10 08:46 | XR_ITS ---
WS: [email or web address] Examination: XR lumbar spine 2-3V* [id number] Reason for Exam: PAIN IN RIGHT HIP Date: December 10, 2023 Comparison: May 15, 2021 Findings: There is curvature of the spine with convexity to the left. [place] is at L3. The bone density and the pedicles are intact. There is no lumbar wedging or compression. There is no subluxation Mild disc space narrowing is identified throughout with anterior lipping. Facet hypertrophy is identi fied posteriorly. There is a large stool burden noted within the colon. XR/XR lumbar spine 2-3V* [id number] Impression: There is scoliosis and degenerative change. I see no wedging or subluxation.
== END 2023-12-10 08:43 | disposition home or self-care (01) ==
LOC: RAD 08:45
PROVIDERS: PCP Family Medicine; Visit Provider Family Medicine
DX: M41.86 Other forms of scoliosis, lumbar region (principal); M89.38 Hypertrophy of bone, other site; K59.00 Constipation, unspecified; M25.551 Pain in right hip
CPT/HCPCS: 72100

== ENCOUNTER → 2023-12-24 10:22 | Outpatient (BNVA) | payer MEDICARE, SELFPAY | PROVIDERS: PCP Family Medicine; Referring Provider Family Medicine; Visit Provider Nurse Practitioner | DX: M53.3 Sacrococcygeal disorders, not elsewhere classified (principal); M51.16 Intervertebral disc disorders with radiculopathy, lumbar region; M47.816 Spondylosis without myelopathy or radiculopathy, lumbar region | CPT/HCPCS: 73502; 99214 ==

== ENCOUNTER → 2023-12-30 08:16 | Outpatient (BNVA) | payer MEDICARE, SELFPAY | PROVIDERS: PCP Family Medicine; Visit Provider Orthopaedic Surgery | DX: M54.9 Dorsalgia, unspecified (principal); M48.062 Spinal stenosis, lumbar region with neurogenic claudication | CPT/HCPCS: 72110; 99214 ==

== ENCOUNTER 2024-01-18 12:41 | Outpatient (CLI) | payer MEDICARE, SELFPAY ==
[2024-01-18 13:01] VITALS: PULSE 73; RESP 18; O2SAT 96
[2024-01-18] MEDS: albuterol 2.5 mg/3 mL Neb INHALATION (13:04)
[2024-01-18 13:05] VITALS: PULSE 76
== END 2024-01-18 12:42 | disposition home or self-care (01) ==
PROVIDERS: PCP Family Medicine; Visit Provider Internal Medicine Critical Care Medicine
DX: R06.09 Other forms of dyspnea (principal); R94.2 Abnormal results of pulmonary function studies
CPT/HCPCS: 94060; 94726; 94729; J7613

== ENCOUNTER 2024-02-01 07:44 | Outpatient (CLI) | payer MEDICARE, SELFPAY ==
--- NOTE | 2024-02-01 08:00 | MR_ITS ---
WS: [email or web address] MRI LUMBAR SPINE NONCONTRAST HISTORY: Chronic back pain radiating down both hips, worse on the RIGHT. COMPARISON: 02/20/2021 TECHNIQUE: Sagittal and axial multisequence imaging is submitted. Mild LEFT curvature. Posterior alignment is normal. Mild disc desiccation. No fractures or marrow edema. Disc spaces and vertebral body heights are well-preserved. Conus terminates normally at L1-2 disc level. L1-L2: Mild facet arthritis. No fracture. L2-L3: Mild annular disc bulging with a central disc protrusion and annular fissure. Very shallow RIG HT paracentral disc protrusion. Mild facet arthritis. Mild bilateral foraminal stenosis. L3-L4: Mild annular disc bulging. Shallow RIGHT foraminal disc protrusion contacts the exiting RIGHT L3 nerve root. Mild ligamentum flavum and facet arthritis. Mild RIGHT subarticular recess and foramin al stenosis. L4-L5: Mild annular disc bulge with a central annular fissure. Moderate bilateral facet joint arthrit is. Very mild central, bilateral subarticular recess and foraminal stenosis, LEFT greater than RIGHT. L5-S1: No stenosis. Paravertebral soft tissues are normal. MR/MR lumbar spine wo con* [id number] IMPRESSION: 1. Degenerative facet joint arthritis. No high-grade central stenosis. 2. L2-3: Very shallow central and RIGHT paracentral disc protrusion. Mild bila teral foraminal stenosis. 3. L3-4: Shallow RIGHT foraminal disc protrusion contacts the exiting RIGHT L3 nerve root. Mild RIGHT subarticular recess and foraminal stenosis. 4. L4-5: Very mild central, bilateral subarticular recess and foraminal stenos is, LEFT greater than RIGHT.
== END 2024-02-01 07:45 | disposition home or self-care (01) ==
LOC: RAD 07:45
PROVIDERS: PCP Family Medicine; Visit Provider Orthopaedic Surgery
DX: M47.896 Other spondylosis, lumbar region (principal)
CPT/HCPCS: 72148

== ENCOUNTER → 2024-02-22 14:42 | Outpatient (BNVA) | payer MEDICARE, SELFPAY | PROVIDERS: PCP Family Medicine; Visit Provider Orthopaedic Surgery | DX: Z09 Encounter for follow-up examination after completed treatment for conditions other than malignant neoplasm (principal) | CPT/HCPCS: 99214 ==

== ENCOUNTER 2024-03-03 11:54 | Outpatient (CLI) | payer MEDICARE, SELFPAY ==
--- NOTE | 2024-03-03 12:15 | MR_ITS ---
WS: [id number] MRI RIGHT FEMUR WITHOUT CONTRAST. COMPARISON: None Multiplanar, multisequence imaging is performed without contrast. History: Bruising over the lateral thigh. No soft tissue mass or signal abnormality is noted along the lateral RIGHT thigh in the area indicate d by the patient. There is a very small amount of edema within the RIGHT obturator externus muscle an d the quadratus femoris muscle posterior to the proximal hip. No marrow signal changes within the bon e. No fractures. There is mild muscle atrophy. MR/MR femur RT wo con* [id number] IMPRESSION: 1. No subcutaneous hematoma or edema. 2. No marrow signal abnormality or fracture. 3. Very mild soft tissue edema in the RIGHT obturator externus and quadratus f emoris muscles posterior to the proximal hip. Suspect edema related to a mild c ontusion.
== END 2024-03-03 11:55 | disposition home or self-care (01) ==
LOC: RAD 11:55
PROVIDERS: PCP Family Medicine; Visit Provider Orthopaedic Surgery
DX: M79.659 Pain in unspecified thigh (principal)
CPT/HCPCS: 73718

== ENCOUNTER → 2024-03-14 13:10 | Outpatient (BNVA) | payer MEDICARE, SELFPAY | PROVIDERS: PCP Family Medicine; Visit Provider Orthopaedic Surgery | DX: Z01.818 Encounter for other preprocedural examination (principal); Z09 Encounter for follow-up examination after completed treatment for conditions other than malignant neoplasm | CPT/HCPCS: 36415; 80053; 81001; 85025; 87086; 99214 ==

== ENCOUNTER 2024-04-10 08:24 | Day surgery (SDC) | payer MEDICARE, SELFPAY ==
[2024-04-10] VITALS (9 sets, daily range): BP systolic 102–131; BP diastolic 58–87; PULSE 68–96; RESP 16–18; TEMP 35.8–36.4; O2SAT 92–100; BMI 38.3
[2024-04-10] MEDS: sodium chloride 0.9% 1,000 ML 30 ML IV (09:27)
--- NOTE | 2024-04-10 09:43 | W.PM.OPSUD ---
Surgery/Procedure H&P Update DATE OF PROCEDURE: April 10, 2024 DATE H&P PERFORMED: 03/29/24 H&P UPDATE INFORMATION: I have reviewed H&P completed within last 30 days, I have examined patient prior to procedure and No changes to prior documentation PREOP DIAGNOSIS: Lumbar stenosis with neurogenic claudication PLANNED PROCEDURE: Operation Date: 04/10/24 09:55 Proposed Procedures p Lumbar Spine Decompression Lumbar Decompression(Not Applicable) - Socrates Shepard DO
--- NOTE | 2024-04-10 09:53 | ANES.PREANE2 ---
Pre-Anesthetic Assessment Height/Weight: Height 1.5 m Weight 86.183 kg Temp Pulse Resp BP Pulse Ox O2 Del Method 96.5 F L 70 18 131/87 96 Room Air 04/10/24 08:47 04/10/24 08:47 04/10/24 08:47 04/10/24 08:47 04/10/24 08:47 04/10/24 08:48 Preop Diagnosis: Lumbar stenosis with neurogenic claudication Operation Date: 04/10/24 09:55 Proposed Procedures p Lumbar Spine Decompression Lumbar Decompression(Not Applicable) - Socrates Shepard, DO Familial anesthetic complications: None Was Beta Marilyn taken within 24 hours: N/A Was Clonidine taken within 24 hours: N/A Last intake: Intake Last Liquid Date 04/09/24 Last Liquid Time 23:50 Last Solid Date 04/09/24 Last Solid Time 21:00 Social No alcohol and No tobacco Exam alert, oriented x 3, clear to auscultation bilaterally and regular rate & rhythm Airway Mallampati: Class IV Dentition: full Comments: Comments: Receding jaw Pulmonary Sleep Apnea (CPAP) Metabolic Morbid Obesity and Thyroid Disease Anesthetic Plan ASA status: 3 Anesthesia: General Risk of > 500 ml blood loss (7ml/kg in children): No Medications/Allergies Home Medications Medication Instructions Recorded Confirmed Last Taken Type cyclobenzaprine 5 mg tablet 5 mg PO TID PRN Pain, Moderate 01/11/20 04/10/24 04/10/24 History cholecalciferol (vitamin D3) 10 400 unit PO DAILY 07/19/20 04/10/24 04/09/24 History mcg (400 unit) capsule (Vitamin D3) glucosamine sulfate 750 mg tablet 750 mg PO DAILY 07/19/20 04/10/24 04/08/24 History levothyroxine 75 mcg tablet 75 mcg PO DAILY 10/30/20 04/10/24 04/10/24 History venlafaxine 75 mg tablet,extended 225 mg PO DAILY 10/30/20 04/10/24 04/10/24 History release 24 hr Night Splint #1 ea 08/11/22 03/14/24 10/07/23 07:00 Rx aspirin 81 mg tablet,delayed 81 mg PO DAILY 02/11/23 04/06/24 03/27/24 History release (Adult Low Dose Aspirin) gabapentin 400 mg capsule 400 mg PO QID 02/11/23 04/10/24 04/10/24 History nitroglycerin 0.4 mg sublingual 0.4 mg sublingual Q5M PRN CP 02/11/23 04/06/24 Unknown History tablet losartan 50 mg-hydrochlorothiazide 1 tab PO DAILY #90 tabs 06/28/23 04/10/24 04/08/24 Rx 12.5 mg tablet magnesium oxide-magnesium amino 2 cap PO DAILY 10/06/23 04/06/24 04/06/24 History acid chelate 300 mg capsule omeprazole 20 mg capsule,delayed 40 mg (2 x 20 mg) PO DAILY #180 12/28/23 04/10/24 04/09/24 Rx release caps amlodipine 5 mg tablet 5 mg PO DAILY #90 tabs 02/14/24 04/10/24 04/10/24 Rx budesonide 160 mcg-glycopyr 9 2 inh inhalation DAILY 03/29/24 04/10/24 04/10/24 History mcg-formot 4.8 mcg/actuation HFA inhaler (Breztri Korbitecphere) Allergies Allergy/AdvReac Type Severity Reaction Status Date / Time lorazepam [From Ativan] AdvReac ADR-Agitate Verified 04/06/24 10:17 d morphine AdvReac [id number]-[id number]-iqr Verified 04/06/24 10:17 take hydrocodone/Dilaudid Current Medications Generic Name Dose Route Start Last Admin Trade Name Freq PRN Reason Stop Dose Admin Sodium Chloride 1,000 mls @ 30 mls/hr 04/10/24 08:45 04/10/24 09:27 Sodium Chloride 0.9% IV 04/11/24 08:44 30 mls/hr .Q24H [facility] Administration [facility] Anesthesia Medical History HTN (hypertension) Chronic pain Has had problems with chronic pain in her lower back/lower abdomen since at least 2009 and has been on medication-this is currently being managed by her primary care provider at this time. No pertinent past medical history Denies diabetes, asthma, hypertension, seizures, DVT/PE PCP: JULITO [place] IBS (irritable bowel syndrome) Has had symptoms on and off since her 40s. Is not on any medication other than venlafaxine to help her symptoms. This is managed by her primary care provider. Hypothyroidism Diagnosed in her 50s being managed by her primary care provider. Does not have an paper production engineer Surgical History S/P bilateral oophorectomy 1989--laparoscopic surgery for removal of both ovaries for pain and ovarian cysts. Per patient no cancer identified at time of surgery History of carpal tunnel release of both wrists Has had bilateral carpal tunnel release surgery as well as bilateral trigger finger release surgery in June and July [address] Fallon at [facility]. History of tonsillectomy As a child History of hysterectomy Laparoscopic/vaginal hysterectomy in the for vaginal bleeding. She was told there was no cancer after the hysterectomy. History of bilateral knee replacement Open procedures done in her 50s History of gastric bypass Reports having had a laparoscopic gastric bypass procedure in 2018 or 2019. History of bladder surgery Think she has had 3 of 4 bladder surgeries prolapse ---> The first 1 was in approximately 1988 done for bladder prolapse and she states that she overdid it in about a month later had stitches fall and had to have repeat surgery done to fix everything again. She thinks she may have had one other surgery in about 1999 but is not certain. Her final surgery on her bladder was done in 2010 and it was done for pain to try to help with adhesions as that was thought to be the cause of pain. ---> Denied any mesh placement with any of these procedures. History of colonoscopy [address] Vazquez-per patient it was normal and plan is to repeat in 10 years Family History Brother Hypertension Hyperlipidemia Thyroid disease Denies family history of Colon cancer Ovarian cancer Diabetes Heart disease Breast cancer Uterine cancer Stroke Social History Smoking and tobacco/nicotine status: never used tobacco/nicotine Quit status (tobacco/nicotine): has quit using Year quit tobacco: 2006 Former quit date comment: 1ppd X 43 years Alcohol intake: current Alcohol intake frequency: holidays/special occasions only Substance/Drug Use: current Other substance/drug use details: CBD Pills Data Anesthesia Cardiac Studies: Sestamibi Stress Test (Cardiology) 02/19/23
[2024-04-10] MEDS: ceFAZolin 2,000 mg SDV 2000 MG IVP (10:06)
[2024-04-10] MEDS: lidocaine-epi 2% PF 1:200,000 20 mL SDV 10 ML INJECTION (10:43)
--- NOTE | 2024-04-10 11:31 | P.OP_ITS ---
Operative Report Date of procedure: April 10, 2024 Pre-op diagnosis: Lumbar stenosis neurogenic claudication Post-op diagnosis: same Procedure done: L4-5 laminectomy with partial facetectomy Surgeon: Socrates Shepard DO Estimated blood loss (mL): 5 Procedure: L4-5 laminectomy and partial facetectomy Patient is brought to the operative suite. After undergoing anesthesia they are placed in the prone position. All areas of impingement are well padded. Patient is then prepped and draped in the normal sterile fashion. A skin incision is made over the L4-5 level. This is confirmed under c-arm guidance. A series of dilators are passed and the tubular retractor is docked on the L4 lamina. A bovie is used to clear the soft tissue off the lamina and the L 4/5 facet joint. A high speed dylan is then used to perform the laminectomy and take down the medial aspect of the L 4/5 facet joint. A kerrison rongeure was then used to take down the remaining lamina and smooth the edge of the laminectomy up to the point where the ligamentum flavum attaches. Attention was then brought to the medial aspect of the facet joint. The remaining medial aspect of the superior and inferior aspect of the facet joint were taken down with the kerrison from the pedicle of L4 to L 5. The facet vini nt had significant hypertrophy. Attention was then brought to the Ligamentum Flavum. The ligament was taken down from the lamina of L4 to L5 and out medially to the remaining facet joint. The ligament was thick. The dura was then exposed. The dura was in good repair. The L4 nerve was then traced with a curette out the L4/5 foramen and found to be adequately decompressed. The L5 nerve was traced with a curette around the L5 pedicle. The lateral recess was opened with a kerrison helping to further decompress the L5 nerve. Wound is then irrigated copiously with saline and surgiflo is used to stop any bleeding. The tubular retractor is removed and the wound is closed with vicryl and monocryl suture. Glue is then used to protect the wound. A sterile dressing is then placed. Patient was then placed in the supine position and transferred to the PACU in stable condition.
[2024-04-10] MEDS: HYDROcodone-acetaminophen 10-325 mg Tablet 1 TAB PO (12:19)
--- NOTE | 2024-04-10 12:35 | ANE.PACU2 ---
Inpatient post-anesthesia follow up: Airway intact: Yes Vital signs: Temperature 97.3 F Pulse Rate 79 Respiratory Rate 16 Blood Pressure 109/79 Pulse Oximetry 94 Oxygen Delivery Me thod Room Air Oxygen Flow Rate 10 Fraction of Inspir ed Oxygen Hydration adequate: Yes Nausea and vomiting: No Pain level: 1 Mental status: Baseline
--- NOTE | 2024-04-10 13:00 | XR_ITS ---
WS: [id number] INTRAOPERATIVE TECHNIQUE: 3 Spot fluoroscopic images for intraoperative purposes. FLUOROSCOPY TIME: 1 seconds CLINICAL INFORMATION: OR PIC, DECOMPRESSION FINDINGS: Localization marker projected over the L4-5 interspace XR/XR lumbar spine [id number] [id number] IMPRESSION: Images obtained for intraoperative purposes.
== END 2024-04-10 12:35 | disposition home or self-care (01) ==
PROVIDERS: PCP Family Medicine; Visit Provider Orthopaedic Surgery
PROC: (CPT 63005; principal; 2024-04-10 09:35)
DX: M48.062 Spinal stenosis, lumbar region with neurogenic claudication (principal)
CPT/HCPCS: 63047; 72020; 76000; J0690; J1100; J1885; J2405; J2704; J3010; J3490; J7030

== ENCOUNTER → 2024-05-25 10:14 | Outpatient (BNVA) | payer MEDICARE, SELFPAY | PROVIDERS: PCP Family Medicine; Visit Provider Orthopaedic Surgery | DX: Z98.890 Other specified postprocedural states (principal) | CPT/HCPCS: 99024 ==

== ENCOUNTER → 2024-07-06 08:33 | Outpatient (BNVA) | payer MEDICARE, SELFPAY | PROVIDERS: PCP Family Medicine; Visit Provider Orthopaedic Surgery | DX: Z98.890 Other specified postprocedural states (principal) | CPT/HCPCS: 99024 ==

== ENCOUNTER 2024-07-26 09:30 | Outpatient (RCR) | payer MEDICARE, SELFPAY | END 2024-08-23 23:59 | disposition home or self-care (01) | LOC: SPT 09:30 | PROVIDERS: Visit Provider Orthopaedic Surgery | DX: Z98.890 Other specified postprocedural states (principal) | CPT/HCPCS: 97110; 97140; 97162; 97530; G0283 ==

== ENCOUNTER 2024-08-24 05:00 | Outpatient (RCR) | payer MEDICARE, SELFPAY | END 2024-09-14 08:02 | disposition home or self-care (01) | LOC: SPT 05:00 | PROVIDERS: Visit Provider Orthopaedic Surgery | DX: Z98.890 Other specified postprocedural states (principal) | CPT/HCPCS: 97110; 97140; G0283 ==

== ENCOUNTER → 2024-10-05 09:32 | Outpatient (BNVA) | payer MEDICARE, SELFPAY | PROVIDERS: Visit Provider Orthopaedic Surgery | DX: M54.50 Low back pain, unspecified (principal); M16.12 Unilateral primary osteoarthritis, left hip; Z98.890 Other specified postprocedural states | CPT/HCPCS: 73502; 99213 ==

== ENCOUNTER 2024-12-21 12:53 | Outpatient (CLI) | payer MEDICARE, SELFPAY ==
--- NOTE | 2024-12-21 11:00 | MR_ITS ---
WS: [id number] MRI LUMBAR SPINE NONCONTRAST HISTORY: lumbar pain radiating ot left leg. COMPARISON: 02/01/2024 TECHNIQUE: Sagittal and axial multisequence imaging is submitted. Mild curvature lumbar spine. Posterior alignment is normal. No compression fracture or marrow edema. Disc spaces and vertebral body heights are well-preserved. Conus terminates normally at L1-2 disc level. L1-L2: Mild bilateral facet arthritis. L2-L3: Mild annular disc bulging with a shallow central disc protrusion and annular fissure. Bilateral foraminal disc protrusions slightly more prominent than on the prior study. Mild bilateral foraminal stenosis. L3-L4: Mild annular disc bulging with ligamentum flavum and facet arthritis. Shallow RIGHT foraminal disc protrusion. No central stenosis. Mild to moderate RIGHT foraminal stenosis. L4-L5: Diffuse annular disc bulging. RIGHT hemilaminectomy defect. RIGHT facetectomy. Small amount of fluid in the RIGHT facet joint. Mild facet arthritis. Mild bilateral foraminal stenosis. L5-S1: No significant stenosis. Paravertebral soft tissues are negative. MR/MR lumbar spine wo con* [id number] IMPRESSION: 1. Status post RIGHT hemilaminectomy with discectomy at L4-5 since the prior s tudy. No residual central stenosis. 2. L4-5: Mild bilateral foraminal stenosis due to disc and facet disease. 3. L2-3: Shallow central disc protrusion. Small bilateral foraminal disc protr usions more prominent than the prior study resulting in mild foraminal stenosis . 4. L3-4: Mild to moderate RIGHT foraminal stenosis. Shallow RIGHT foraminal di sc protrusion.
== END 2024-12-21 12:54 | disposition home or self-care (01) ==
LOC: RAD 12:59
PROVIDERS: Visit Provider Orthopaedic Surgery
DX: M47.816 Spondylosis without myelopathy or radiculopathy, lumbar region (principal); M51.369 Other intervertebral disc degeneration, lumbar region without mention of lumbar back pain or lower extremity pain; M48.061 Spinal stenosis, lumbar region without neurogenic claudication
CPT/HCPCS: 72148

== ENCOUNTER → 2024-12-28 08:52 | Outpatient (BNVA) | payer MEDICARE, SELFPAY | PROVIDERS: Visit Provider Orthopaedic Surgery | DX: Z09 Encounter for follow-up examination after completed treatment for conditions other than malignant neoplasm (principal); M48.062 Spinal stenosis, lumbar region with neurogenic claudication | CPT/HCPCS: 99214 ==

== ENCOUNTER 2025-01-01 08:40 | Outpatient (CLI) | payer MEDICARE, SELFPAY ==
[2025-01-01 10:01] LABS: Hematocrit 41.0 % (36-47); Hemoglobin 13.60 g/dL (11.27-16.99); Mean Corpuscular HGB Conc 33.2 g/dL (30-55); Mean Corpuscular Hemoglobin 28.2 pg (27-33); Mean Corpuscular Volume 85.1 fl (85-98); Nucleated Red Blood Cells % 0 %; Platelet Count 460 10^3/cmm (157-399); Red Blood Count 4.82 10^6/uL (3.85-5.65); White Blood Count 6.51 10^3/uL (3.29-11.43)
[2025-01-01 10:14] LABS: Glucose Urine UA Negative (Normal); Nitrate Urine Negative (Negative); Specific Gravity, Urine 1.020 (1.005-1.030)
[2025-01-01 10:19] LABS: Add Urine Microscopic? YES
[2025-01-01 10:31] LABS: Alanine Aminotransferase 17 U/L (0-33); Albumin Level 4.3 g/dL (3.5-5.2); Alkaline Phosphatase 139 U/L (35-105); Anion Gap 15.5 (5-19); Aspartate Amino Transferase 17 U/L (0-32); Blood Urea Nitrogen 12 mg/dL (8-23); Calcium 9.4 mg/dL (8.5-10.5); Carbon Dioxide 27 mmol/L (22-29); Chloride 99 mmol/L (98-107); Globulin 2.8 g/dL (1.3-4.6); Glucose 102 mg/dL (65-115); Osmolality Calculated 286 mOsm/kg (285-295); Potassium 3.5 mmol/L (3.5-5.1); Sodium 138 mmol/L (136-145); Total Protein 7.1 g/dL (6.6-8.7)
== END 2025-01-01 08:41 | disposition home or self-care (01) ==
LOC: LAB 08:43
PROVIDERS: Visit Provider Orthopaedic Surgery
DX: M48.062 Spinal stenosis, lumbar region with neurogenic claudication (principal)
CPT/HCPCS: 36415; 80053; 81001; 85025

== ENCOUNTER → 2025-01-02 08:21 | Outpatient (BNVA) | payer MEDICARE, SELFPAY | PROVIDERS: PCP Family Medicine; Visit Provider Internal Medicine | DX: J44.9 Chronic obstructive pulmonary disease, unspecified (principal); J96.10 Chronic respiratory failure, unspecified whether with hypoxia or hypercapnia; R91.1 Solitary pulmonary nodule; G47.33 Obstructive sleep apnea (adult) (pediatric); Z99.89 Dependence on other enabling machines and devices; Z87.891 Personal history of nicotine dependence | CPT/HCPCS: 99214 ==

== ENCOUNTER → 2025-01-05 11:06 | Outpatient (BNVA) | payer MEDICARE, SELFPAY | PROVIDERS: PCP Family Medicine; Visit Provider Family Medicine | DX: Z01.818 Encounter for other preprocedural examination (principal) | CPT/HCPCS: 81003; 93005 ==

== ENCOUNTER 2025-01-09 16:53 | Outpatient (CLI) | payer MEDICARE, SELFPAY ==
--- NOTE | 2025-01-09 17:15 | CT_ITS ---
WS: [id number] CT chest w con* [id number] REASON FOR EXAM: COPD IV CONTRAST ADMINISTERED: 100 mL of Omnipaque 350. TECHNIQUE: Multiple axial images were obtained following the intravenous administration of contrast. Coronal and sagittal reconstructions performed. COMPARISON EXAMINATION: 10/14/2023. TOTAL EXAM DLP: 590.[address] scans at [facility] use at least one of these dose optimization techniques: automated exposure control; mA and/or kV adjustment per patient size (includes targeted exams where dose is matched to clinical indication); or iterative reconstruction. FINDINGS: The axillary and mediastinal lymph node number and volume are unchanged compared to the previous examination. The nodule adjacent to the lateral margin of the azygos vein has decreased from 11 mm to 8 mm in maximum diameter. The pulmonary parenchyma demonstrates small cystic lucencies in the upper lobes consistent with central lobar emphysema. These findings are unchanged compared to the previous examination. No new lung nodules or infiltrate identified. No significant pleural abnormality. Mild thoracic scoliosis and degenerative spondylosis. No change. Mild fatty infiltration of the liver and significant fatty infiltration of the pancreas again noted unchanged. CT/CT chest w con* [id number] IMPRESSION: Decrease in volume of the right lung nodule as above. Stable central lobar emphysema. Stable axillary and mediastinal lymph node number and volume. No new findings. If patient has significant smoking history 1 year follow-up is recommended.
[2025-01-09] MEDS: iohexol 350 mg/mL 500 mL Btl (per mL) IV (17:27)
== END 2025-01-09 16:54 | disposition home or self-care (01) ==
LOC: RAD 16:55
PROVIDERS: PCP Family Medicine; Visit Provider Internal Medicine
DX: J44.9 Chronic obstructive pulmonary disease, unspecified (principal)
CPT/HCPCS: 71260

== ENCOUNTER 2025-03-12 11:40 | Observation (INO) | payer MEDICARE, SELFPAY ==
--- OUTSIDE RECORDS SUMMARY | 2024-02-19 03:00 | XMS_ITS ---
Author Organization [facility] Address [address] [place] [address] Care Team Providers Care Head Baker Name Role Phone Brodie Mcdonald MD Primary Care Provider Unavaila William Arenas Unavailable [phone] Migration, Provider Unavailable Unavailable REASON FOR VISIT EMR-Francis Encounters Encounter Location Date Provider Diagnosis Migrated_Facility 0 0 02/19/2024 Provider Migration Plan Of Treatment No Information Progress Notes * TEREZA LINDER EDOB: (64 yo F)Acc No.[id number]:02/19/2024 Patient: JEREMIAH HAMILTONHI Gurmeet :1960 A ge:63 Y S ex:Female Address:[address] [place] [address], [id number] Subjective: * Chief Complaints: * E MR-Francis * * Date:
--- OUTSIDE RECORDS SUMMARY | 2024-02-20 03:00 | XMS_ITS ---
Author Organization [facility] Address [address] [place] [address] Care Team Providers Care Manager Of Health Name Role Phone Brodie Mcdonald MD Primary Care Provider Unavaila William Arenas Unavailable [phone] Migration, Provider Unavailable Unavailable Allergies Allergen (clinical drug ingredient) Drug/Non Drug Allergy documented on EMR Reaction Allergy Type Onset Date Status lorazepam Ativan Unknown Drug Allergy Active morphine Morphine Unknown Drug Allergy Active REASON FOR VISIT EMR-Francis Medications Medication SIG (Take, Route, Frequency, Duration) Notes Start Date End Date Status cyclobenzaprine *Reorder from [facility] for eRx and Interaction Alerts* Active Omeprazole *Pick strength-f orm from [facility] for eRX* Active Gabapentin *Pick strength-f orm from [facility] for eRX* Active Vitamin D3 *Pick strength-f orm from [facility] for eRX* Active Euthyrox *Pick strength-f orm from [facility] for eRX* Active venlafaxine [facility]* Active Belsomra *Pick strength-f orm from [facility] for eRX* Active Social History Social History Additional Details Category Social Info Options Details Migrated Social History Migrated Social History Alcoholic beverages? - No, Applying for disability? - No, Are you or is there a chance you could be - No, Currently on disability? - Yes, Drug or substance abuse? - No, Education - Grade School, exposure to toxins/poisonous substances at work - No, Involved in any legal proceedings or lawsuits? - No, Marital Status - , Nonprescription drug use? - Yes, Participation in detoxification or rehabilitation - No, Smoking - No, Smoking status (MU) - Unknown if ever smoked, Working currently? - No Encounters Encounter Location Date Provider Diagnosis Migrated_Facility 0 0 02/20/2024 Provider Migration Plan Of Treatment No Information Progress Notes * TEREZA LINDER EDOB: [birth year] (64 yo F)Acc No.[id number]:02/20/2024 Patient: TEREZA HAMILTON :1960 A ge:63 Y S ex:Female Address:[address] [place] [id number] Subjective: * Chief Complaints: * E MR-Francis * Medical History: Arthritis, C hronic pain, I rritable bowel, M igraine, T hyroid disease, * Surgical History: Hysterectomy Since 1984 Ovarian Surgery Since 1989 Birch Bladder Since 1991 bladder repair Since 2006 Bladder Lift Since 2017 Carpal tunnel surgery Since 2020 * Family History: M igrated Family History: : chronic pain, f ibromyalgia, H eart disease, l upus. * Social History: M igrated Social History: M igrated Social History: Alcoholic beverages? - No, A pplying for disability? - No, A re you or is there a chance you could be - No, C urrently on disability? - Yes, D rug or substance abuse? - No, E ducation - Grade School, e xposure to toxins/poisonous substances at work - No, I nvolved in any legal proceedings or lawsuits? - No, M arital Status - , Nonprescription drug use? - Yes, P articipation in detoxification or rehabilitation - No, S moking - No, S moking status (MU) - Unknown if ever smoked, W orking currently? - No. * Medications: T akingOmeprazole , Notes to Pharmacist: *Pick strength-form from [facility] for eRX*cyclobenzaprine , Notes to Pharmacist: *Reorder from [facility] for eRx and Interaction Alerts*Gabapentin , Notes to Pharmacist: *Pick strength-form from [facility] for eRX*venlafaxine , Notes to Pharmacist: *Reorder from [facility] for eRx and Interaction Alerts*Vitamin D3 , Notes to Pharmacist: *Pick strength-form from [facility] for eRX*Euthyrox , Notes to Pharmacist: *Pick strength-form from [facility] for eRX*Belsomra , Notes to Pharmacist: *Pick strength-form from [facility] for eRX*Taking Omeprazole , Notes to Pharmacist: *Pick strength-form from [facility] for eRX*Taking cyclobenzaprine , Notes to Pharmacist: *Reorder from [facility] for eRx and Interaction Alerts*Taking Gabapentin , Notes to Pharmacist: *Pick strength-form from [facility] for eRX*Taking venlafaxine , Notes to Pharmacist: *Reorder from [facility] for eRx and Interaction Alerts*Taking Vitamin D3 , Notes to Pharmacist: *Pick strength-form from [facility] for eRX*Taking Euthyrox , Notes to Pharmacist: *Pick strength-form from [facility] for eRX*Taking Belsomra , Notes to Pharmacist: *Pick strength-form from [facility] for eRX* * Allergies: M orphine: AllergyAtivan: Allergy * * Date:
--- OUTSIDE RECORDS SUMMARY | 2024-07-25 08:10 | XMS_ITS ---
Author Organization [facility] Address [address] [place] [address] Care Team Providers Care Wet Pan Mixer Name Role Phone Harry SANCHEZ, Brodie Primary Care Provider William Wayne [phone] Encounters Encounter Location Date Provider Diagnosis [facility] [address] [place] [address] [place] [address] 07/25/2024 William Banuelos Plan Of Treatment No Information Progress Notes * TEREZA LINDER EDOB: (64 yo F)Acc No.[id number]:07/25/2024 Progress Notes Patient: TEREZA HAMILTON Provider: lEeonora Banuelos MD :1960 A ge:64 Y S ex:Female Date:07/25/2024 Address:[address] [place], [place] [id number] Pcp:Brodie Mcdonald MD Care Plan Details* * Electronic signature of Brenda Banuelos MD on 03/14/2025 at 03:59 PM STILL CLEANER Sign off status: Pending * Provider: Eleonora Banuelos MD Date: 0 07/25/2024 Generated for Printi ng/Fafroyg/eTransmitting on: 05/14/2024 03:59 PM STILL CLEANER
--- OUTSIDE RECORDS SUMMARY | 2024-07-31 08:20 | XMS_ITS ---
Author Organization [facility] Address [address] [place] [address] Care Team Providers Care Coal Trammer Name Role Phone Brodie Mcdonald MD Primary Care Provider William Wayne Unavailable [phone] REASON FOR VISIT cough Medications Medication SIG (Take, Route, Frequency, Duration) Notes Start Date End Date Status Gabapentin 400 MG Capsule Oral; Duration : 90 Days Active Levothyroxine Sodium 75 MCG Tablet Oral; Duration: 90 Days Active Glucosamine Active Nitroglycerin 0.[address] 1 TABLET UNDER TONGUE EVERY 5 MINS, UP TO 3 DOSES NEEDED FOR CHEST PAIN Sublingual; Duration: 10 Days Active Losartan Potassium-HCTZ 50-12.5 MG Tablet Oral; Duration: 90 Days Active Diclofenac Sodium 50 MG Tablet Delayed Release Oral; Duration: 30 Days Active amLODIPine Besylate 5 MG Tablet Oral; Duration: 90 Days Active Albuterol Sulfate (2.5 MG/3ML) 0.083% Nebulization Solution Inhalation; Duration: 10 Days PRN Active Cyclobenzaprine HCl 10 MG Tablet Oral; Duration: 30 Days Active Biotin Active predniSONE 20 MG Tablet Oral; Duration: 7 Days Not-Taking hydrOXYzine HCl 25 MG Tablet Oral; Duration: 5 Days Not-Taking Albuterol Sulfate HFA 108 (90 Base) MCG/ACT Aerosol Solution 2 puffs as needed Inhalation every 4-6 hrs as needed; Duration: 90 days Active Zolpidem Tartrate 10 MG Tablet Oral; Duration: 90 Days Not-Taking Breztri Aerosphere 160-9-4.8 MCG/ACT Aerosol 2 puffs (rinse mouth after use) Inhalation BID; Duration: 30 days 03/27/2024 04/25/2025 Active Venlafaxine HCl ER 75 MG Capsule Extended Release 24 Hour Oral; Duration: 90 Days Active Omeprazole 20 MG Capsule Delayed Release Oral; Duration: 90 Days Active Vitamin C Active Vitamin B12 Active Encounters Encounter Location Date Provider Diagnosis [facility] [address] [place] [address] DR CORLEY, KALEN [phone] 07/31/2024 William Banuelos Chronic cough R05.3 ; Centrilobular emphysema J43.2 and Former smoker Z87.891 Assessments Encounter Date Diagnosis (ICD Code) Assessment Notes Treatment Notes Treatment Clinical Notes Section Notes 07/31/2024 Chronic cough (ICD-10 - R05.3) No benefit from Mucinex The patient was advised antireflux measures: Elevating the head of the bed when going to sleep, avoiding eating or drinking 4 hours prior to bedtime, avoiding caffeinated drinks such as coffee, tea, and chocolates as well as milk products. 07/31/2024 Centrilobular emphysema (ICD-10 - J43.2) Continue Breztri as well as Albuterol HFA and Neb. Start Doxycycline and Prednisone for exacerbation. 07/31/2024 Former smoker (ICD-10 - Z87.891) 22 pack smoker smoking up until the age of 45. Given long duration of abstinence from cigarette smoke she does not qualify for lung cancer screening. Her last chest CT was from September 2023 showing no concerning pulmonary nodule or mass. 07/31/2024 Other I, Shea Tom, am scribing for, and in the presence of Dr. William Banuelos. I, Dr. William Banuelos, personally performed the services described in this documentation, as scribed by Shea Tom in my presence, and it is both accurate and complete. Plan Of Treatment Treatment Notes Assessment Notes Chronic cough No benefit from Mucinex The patient was advised antireflux measures: Elevating the head of the bed when going to sleep, avoiding eating or drinking 4 hours prior to bedtime, avoiding caffeinated drinks such as coffee, tea, and chocolates as well as milk products. Centrilobular emphysema Continue Breztri as well as Albuterol HFA and Neb. Start Doxycycline and Prednisone for exacerbation. Former smoker 22 pack smoker smoki ng up until the age of 45. Given long duration of abstinence from cigarette smoke she does not qualify for lung cancer screening. Her last chest CT was from September 2023 showing no concerning pulmonary nodule or mass. History and Physical Notes * HPI (History of Present Illness) Category Sub-Category Detail Notes Category Not es Provider Note The patient is a 63-year-old female with interstitial disease here for a follow-up visit. The patient was given a sample of Breztri and it did seem to help relieve much of her cough. She then switched to Trelegy sample and her cough recurred. However when she tried to get back to Breztri she still had a persistent cough. She is coughing up phlegm. She did not see much benefit from taking Mucinex. -Last seen May 02, 2024; 3 mth f/u -Patient called in May stating Breztri was too expensive. Symbicort and Spiriva were sent then refill was sent day after for Breztri. Unsure which patient is taking. Examination Category Sub-Category Detail Notes Category Not es General Examination GENERAL APPEARANCE: awake, n ot in respiratory distress EYES: extraocular muscles intact EARS: normal hearing HEART: no murmurs, rubs, ga llops, no edema LUNGS: Occasional bibasal e xpiratory wheezing, no crackles NEUROLOGIC: alert, oriented SKIN: warm and moist PSYCH: normal mood with brice ropriate affect Progress Notes * TEREZA LINDER EDOB: [birth year] (64 yo F)Acc No.[id number]:07/31/2024 Progress Notes Patient: TEREZA HAMILTON Provider: Eleonora Banuelos MD :1960 A ge:64 Y S ex:Female Date:07/31/2024 Address:[address] [place], [place] [phone] Pcp:Brodie Mcdonald MD Subjective: * Chief Complaints: * C ough * HPI: Stacy espinal Note: The patient is a 63-year-old female with interstitial disease here for a follow- up visit. The patient was given a sample of Breztri and it did seem to help relieve much of her cough. She then switched to Trelegy sample and her cough recurred. However when she tried to get back to Breztri she still had a persistent cough. She is coughing up phlegm. She did not see much benefit from taking Mucinex. -Last seen May 02, 2024; 3 mth f/u -Patient called in May stating Breztri was too expensive. Symbicort and Spiriva were sent then refill was sent day after for Breztri. Unsure which patient is taking. * ROS: Esther archuleta of systems of chart has been reviewed and scanned in by me. * Medications: T akingAlbuterol Sulfate (2.5 MG/3ML) 0.083% Nebulization Solution Inhalation , Notes to Pharmacist: PRNamLODIPine Besylate 5 MG Tablet Oral Biotin Cyclobenzaprine HCl 10 MG Tablet Oral Diclofenac Sodium 50 MG Tablet Delayed Release Oral Gabapentin 400 MG Capsule Oral Glucosamine Levothyroxine Sodium 75 MCG Tablet Oral Losartan Potassium-HCTZ 50-12.5 MG Tablet Oral Nitroglycerin 0.[address] 1 TABLET UNDER TONGUE EVERY 5 MINS, UP TO 3 DOSES NEEDED FOR CHEST PAIN Sublingual Omeprazole 20 MG Capsule Delayed Release Oral Venlafaxine HCl ER 75 MG Capsule Extended Release 24 Hour Oral Vitamin B12 Vitamin C Albuterol Sulfate HFA 108 (90 Base) MCG/ACT Aerosol Solution 2 puffs as needed Inhalation every 4-6 hrs as needed Breztri Aerosphere 160-9-4.8 MCG/ACT Aerosol 2 puffs (rinse mouth after use) Inhalation BID , stop date 04/25/2025Taking Albuterol Sulfate (2.5 MG/3ML) 0.083% Nebulization Solution Inhalation , Notes to Pharmacist: PRNTaking amLODIPine Besylate 5 MG Tablet Oral Taking Biotin Taking Cyclobenzaprine HCl 10 MG Tablet Oral Taking Diclofenac Sodium 50 MG Tablet Delayed Release Oral Taking Gabapentin 400 MG Capsule Oral Taking Glucosamine Taking Levothyroxine Sodium 75 MCG Tablet Oral Taking Losartan Potassium-HCTZ 50-12.5 MG Tablet Oral Taking Nitroglycerin 0.[address] 1 TABLET UNDER TONGUE EVERY 5 MINS, UP TO 3 DOSES NEEDED FOR CHEST PAIN Sublingual Taking Omeprazole 20 MG Capsule Delayed Release Oral Taking Venlafaxine HCl ER 75 MG Capsule Extended Release 24 Hour Oral Taking Vitamin B12 Taking Vitamin C Taking Albuterol Sulfate HFA 108 (90 Base) MCG/ACT Aerosol Solution 2 puffs as needed Inhalation every 4-6 hrs as needed Taking Breztri Aerosphere 160-9-4.8 MCG/ACT Aerosol 2 puffs (rinse mouth after use) Inhalation BID , stop date 04/25/2025Not-TakinghydrOXYzine HCl 25 MG Tablet Oral predniSONE 20 MG Tablet Oral Zolpidem Tartrate 10 MG Tablet Oral Not-Taking hydrOXYzine HCl 25 MG Tablet Oral Not-Taking predniSONE 20 MG Tablet Oral Not-Taking Zolpidem Tartrate 10 MG Tablet Oral Objective: * Examination: G eneral Examination: GENERAL APPEARANCE: a wake, not in respiratory distress.? EYES: e xtraocular muscles intact. EARS: n ormal hearing. SKIN: w arm and moist. HEART: n o murmurs, rubs, gallops, no edema. LUNGS: O ccasional bibasal expiratory wheezing, no crackles. NEUROLOGIC: a lert, oriented. PSYCH: n ormal mood with appropriate affect. ? Assessment: * Assessment: 1. C entrilobular emphysema - J43.2 (Primary) 2 . C hronic cough - R05.3? 3. F ormer smoker - Z87.891 Plan: * Treatment: 2. C hronic cough Notes: No benefit from Mucinex The patient w as advised antireflux measures: Elevating the head of the bed when going to sleep, avoiding eating or drinking 4 hours prior to bedtime, avoiding caffeinated drinks such as coffee, tea, and chocolates as well as milk products. 3. F ormer smoker Notes: 22 pack smoker smoking up until the age of 45. Given long duration of abstinence from cigarette smoke she does not qualify for lung cancer screening. Her last chest CT was from September 2023 showing no concerning pulmonary nodule or mass. 4. O thers Clinical Notes:IShea, am scribing for, and in the presence of Dr. William Banuelos. I, Dr. William Banuelos, personally performed the services described in this documentation, as scribed by Shea Tom in my presence, and it is both accurate and complete. * Immunizations: Immunization record has been reviewed and updated. Billing Information: * Procedure Codes: Care Plan Details* * Electronic signature of Brenda Banuelos MD on 03/14/2025 at 04:00 PM TELLER VAULT Sign off status: Pending * Provider: Eleonora Banuelos MD Date: 0 07/31/2024 Generated for Tabitha barrios/Harjit/Peri on: 1 05/14/2024 04:00 PM TELLER VAULT
--- OUTSIDE RECORDS SUMMARY | 2024-11-22 05:40 | XMS_ITS ---
Author Organization [facility] Address [address] [place] [address] Care Team Providers Care Well Service Floor Worker Name Role Phone Harry SANCHEZ, Brodie Primary Care Provider William Wayne [phone] Encounters Encounter Location Date Provider Diagnosis [facility] [address] [place] [address] [place] [address] 11/22/2024 William Banuelos Plan Of Treatment No Information Progress Notes * TEREZA LINDER EDOB: (64 yo F)Acc No.[id number]:11/22/2024 Progress Notes Patient: TEREZA HAMILTON Provider: Eleonora Banuelos MD :1960 A ge:64 Y S ex:Female Date:11/22/2024 Address:[address] [place], [place] [phone] Pcp:Brodie Mcdonald MD Care Plan Details* * Electronic signature of Brenda Banuelos MD on 03/14/2025 at 03:59 PM INSTRUCTIONAL TECHNOLOGY COORDINATOR Sign off status: Pending * Provider: Eleonora Banuelos MD Date: 0 11/22/2024 Generated for Printi ng/Faxing/eTransmitting on: 05/14/2024 03:59 PM INSTRUCTIONAL TECHNOLOGY COORDINATOR
[2025-03-12] VITALS (24 sets, daily range): BP systolic 85–158; BP diastolic 30–98; PULSE 67–91; RESP 9–23; TEMP 36.1–36.5; O2SAT 91–100; BMI 40.4
--- NOTE | 2025-03-12 08:28 | W.PM.OPSFHP ---
Same Day Surgery H&P Indication for Procedure/HPI DATE OF PROCEDURE: March 12, 2025 CHIEF COMPLAINT/INDICATIONFOR SURGICAL PROCEDURE: Back and right leg pain PREOP DIAGNOSIS: Lumbar stenosis with neurogenic claudication PLANNED PROCEDURE: Operation Date: 03/12/25 09:30 Proposed Procedures p Spinal Fusion PSF L4/5(Not Applicable) - Socrates Shepard, DO Medications/Allergies* Home Medications ?Medication ?Instructions ?Recorded ?Confirmed ?Type cholecalciferol (vitamin D3) 10 400 unit PO DAILY 07/19/20 03/09/25 History mcg (400 unit) capsule (Vitamin D3) glucosamine sulfate 750 mg tablet 750 mg PO DAILY 07/19/20 03/09/25 History levothyroxine 75 mcg tablet 75 mcg PO DAILY 10/30/20 03/09/25 History venlafaxine 75 mg tablet,extended 225 mg PO DAILY 10/30/20 03/09/25 History release 24 hr nitroglycerin 0.4 mg sublingual 0.4 mg sublingual Q5M PRN CP 02/11/23 03/09/25 History tablet budesonide 160 mcg-glycopyr 9 2 inh inhalation DAILY 03/29/24 03/09/25 History mcg-formot 4.8 mcg/actuation HFA inhaler (Breztri Aerosphere) albuterol sulfate 2.5 mg/3 mL 2.5 mg continuous nebulization 01/02/25 03/09/25 History (0.083 %) solution for nebulization DIRECTED PRN Allergy Symptoms albuterol sulfate 90 mcg/actuation 90 mcg inhalation DIRECTED 01/02/25 03/09/25 History aerosol inhaler azithromycin 500 mg tablet 500 mg PO DIRECTED 01/02/25 03/09/25 History biotin 10,000 mcg capsule 10,000 mcg PO DAILY 01/02/25 03/09/25 History cyclobenzaprine 5 mg tablet 10 mg PO TID Pain, Moderate 01/02/25 03/09/25 History ferrous sulfate 325 mg (65 mg 325 mg PO DAILY 01/02/25 03/09/25 History iron) tablet (FeroSul) hydroxyzine HCl 25 mg tablet 25 mg PO DIRECTED 01/02/25 03/09/25 History zolpidem 10 mg tablet 10 mg PO BEDTIME 01/02/25 03/09/25 History losartan 50 mg-hydrochlorothiazide 1 tab PO DIRECTED 03/09/25 03/09/25 History 12.5 mg tablet Allergies/Adverse Reactions Allergy/AdvReac Type Severity Reaction Status Date / Time lorazepam (From Ativan) AdvReac ADR-Agitate Verified 03/12/25 08:29 d morphine AdvReac [id number] Verified 03/12/25 08:29 take hydrocodone/Dilaudid Pertinent History/Comorbid Conditions* Medical History (Updated 01/02/25 @ 09:18 by Ro Obrien MD) Obstructive sleep apnea Lung nodule Chronic respiratory failure COPD (chronic obstructive pulmonary disease) HTN (hypertension) Chronic pain Has had problems with chronic pain in her lower back/lower abdomen since at least 2009 and has been on medication-this is currently being managed by her primary care provider at this time. No pertinent past medical history Denies diabetes, asthma, hypertension, seizures, DVT/PE PCP: JULITO [place] IBS (irritable bowel syndrome) Has had symptoms on and off since her 40s. Is not on any medication other than venlafaxine to help her symptoms. This is managed by her primary care provider. Hypothyroidism Diagnosed in her 50s being managed by her primary care provider. Does not have an produce wrapper Surgical History (Updated 05/25/24 @ 10:40 by Socrates Shepard DO) S/P bilateral oophorectomy 1989--laparoscopic surgery for removal of both ovaries for pain and ovarian cysts. Per patient no cancer identified at time of surgery History of carpal tunnel release of both wrists Has had bilateral carpal tunnel release surgery as well as bilateral trigger finger release surgery in June and July [address] Fallon at [facility]. History of tonsillectomy As a child History of hysterectomy Laparoscopic/vaginal hysterectomy in the for vaginal bleeding. She was told there was no cancer after the hysterectomy. History of bilateral knee replacement Open procedures done in her 50s History of gastric bypass Reports having had a laparoscopic gastric bypass procedure in 2018 or 2019. History of bladder surgery Think she has had 3 of 4 bladder surgeries prolapse ---> The first 1 was in approximately 1988 done for bladder prolapse and she states that she overdid it in about a month later had stitches fall and had to have repeat surgery done to fix everything again. She thinks she may have had one other surgery in about 1999 but is not certain. Her final surgery on her bladder was done in 2010 and it was done for pain to try to help with adhesions as that was thought to be the cause of pain. ---> Denied any mesh placement with any of these procedures. History of colonoscopy [address] Vazquez-per patient it was normal and plan is to repeat in 10 years Family History (Updated 09/30/20 @ 14:03 by Liliam Linn RN) Hyperlipidemia Brother Hypertension Brother Thyroid disease Brother Denies family history of Colon cancer Ovarian cancer Diabetes Heart disease Breast cancer Uterine cancer Stroke Social History Smoking and tobacco/nicotine status: former use of tobacco/nicotine Quit status (tobacco/nicotine): has quit using Year quit tobacco: 2006 Former quit date comment: 1ppd X 43 years Alcohol intake: current Alcohol intake frequency: holidays/special occasions only Substance/Drug Use: current Other substance/drug use details: CBD Pills Pertinent Exam Findings alert, oriented x 3 and procedure specific exam findings Recommendations Surgery/Procedure today Coding Level of Care Code Acute Code for Chg Sharron
[2025-03-12 08:38] LABS: Glucose Urine UA Negative (Normal); Nitrate Urine Negative (Negative)
--- NOTE | 2025-03-12 08:43 | ANES.PREANE2 ---
Pre-Anesthetic Assessment Height/Weight: Height 4 ft 11 in Weight 200 lb Temp Pulse Resp BP Pulse Ox O2 Del Method 97.0 F L 76 18 158/98 96 Room Air 03/12/25 08:15 03/12/25 08:15 03/12/25 08:15 03/12/25 08:15 03/12/25 08:15 03/12/25 08:15 Preop Diagnosis: Lumbar stenosis with neurogenic claudication Operation Date: 03/12/25 09:30 Proposed Procedures p Spinal Fusion PSF L4/5(Not Applicable) - Socrates Shepard, DO Was Beta Marilyn taken within 24 hours: N/A Was Clonidine taken within 24 hours: N/A Last intake: Intake Last Liquid Date 03/11/25 Last Liquid Time 00:00 Last Solid Date 03/11/25 Last Solid Time 00:00 Social No alcohol and No tobacco Exam alert, oriented x 3, clear to auscultation bilaterally and regular rate & rhythm Airway Submandibular: within normal limits Cervical ROM: within normal limits Mallampati: Class III Dentition: full Comments: Comments: Smaller mouth opening Anesthetic Plan ASA status: 3 Anesthesia: General Other: No prior issues with anesthesia NPO since yesterday evening History of hypertension on amlodipine as well as losartan?HCTZ GERD on omeprazole Hypothyroidism on Synthroid BMI 40.4 TIEN on CPAP COPD, quit smoking 18 years ago Labs reviewed and acceptable for procedure Patient states ambulation is limited only secondary to pain Plan for GETA Medications/Allergies Home Medications ?Medication ?Instructions ?Recorded ?Confirmed ?Last Taken ?Type cholecalciferol (vitamin D3) 10 400 unit PO DAILY 07/19/20 03/09/25 03/09/25 History mcg (400 unit) capsule (Vitamin D3) glucosamine sulfate 750 mg tablet 750 mg PO DAILY 07/19/20 03/09/25 03/09/25 History levothyroxine 75 mcg tablet 75 mcg PO DAILY 10/30/20 03/09/25 03/12/25 06:30 History venlafaxine 75 mg tablet,extended 225 mg PO DAILY 10/30/20 03/09/25 03/12/25 06:30 History release 24 hr nitroglycerin 0.4 mg sublingual 0.4 mg sublingual Q5M PRN CP 02/11/23 03/09/25 Unknown History tablet omeprazole 20 mg capsule,delayed 40 mg (2 x 20 mg) PO DAILY #180 12/28/23 03/09/25 03/09/25 Rx release caps budesonide 160 mcg-glycopyr 9 2 inh inhalation DAILY 03/29/24 03/09/25 03/09/25 History mcg-formot 4.8 mcg/actuation HFA inhaler (Breztri Aerosphere) albuterol sulfate 2.5 mg/3 mL 2.5 mg continuous nebulization 01/02/25 03/09/25 Unknown History (0.083 %) solution for nebulization DIRECTED PRN Allergy Symptoms albuterol sulfate 90 mcg/actuation 90 mcg inhalation DIRECTED 01/02/25 03/09/25 03/12/25 06:30 History aerosol inhaler azithromycin 500 mg tablet 500 mg PO DIRECTED 01/02/25 03/09/25 03/09/25 History biotin 10,000 mcg capsule 10,000 mcg PO DAILY 01/02/25 03/09/25 03/09/25 History cyclobenzaprine 5 mg tablet 10 mg PO TID Pain, Moderate 01/02/25 03/09/25 03/09/25 History ferrous sulfate 325 mg (65 mg 325 mg PO DAILY 01/02/25 03/09/25 03/12/25 06:30 History iron) tablet (FeroSul) hydroxyzine HCl 25 mg tablet 25 mg PO DIRECTED 01/02/25 03/09/25 Unknown History zolpidem 10 mg tablet 10 mg PO BEDTIME 01/02/25 03/09/25 03/08/25 History amlodipine 5 mg tablet 5 mg PO DAILY #90 tabs 02/09/25 03/09/25 03/12/25 06:30 Rx hydrocodone 5 mg-acetaminophen 325 1 tab PO Q8H PRN pain 14 days #42 03/07/25 03/09/25 03/09/25 Rx mg tablet tabs losartan 50 mg-hydrochlorothiazide 1 tab PO DIRECTED 03/09/25 03/09/25 Unknown History 12.5 mg tablet Allergies Allergy/AdvReac Type Severity Reaction Status Date / Time lorazepam (From Ativan) AdvReac ADR-Agitate Verified 03/12/25 08:29 d morphine AdvReac LOC-Lijykndw-fco Verified 03/12/25 08:29 take hydrocodone/Dilaudid Current Medications Generic Name Dose Route Start Last Admin Trade Name Prudence PRN Reason Stop Dose Admin Sodium Chloride 1,000 mls @ 30 mls/hr 03/12/25 08:15 03/12/25 08:35 Sodium Chloride 0.9% IV 03/13/25 08:14 30 mls/hr .Q24H ARNOLD Administration PFSH Anesthesia Medical History Obstructive sleep apnea Lung nodule Chronic respiratory failure COPD (chronic obstructive pulmonary disease) HTN (hypertension) Chronic pain Has had problems with chronic pain in her lower back/lower abdomen since at least 2009 and has been on medication-this is currently being managed by her primary care provider at this time. No pertinent past medical history Denies diabetes, asthma, hypertension, seizures, DVT/PE PCP: JULITO [place] IBS (irritable bowel syndrome) Has had symptoms on and off since her 40s. Is not on any medication other than venlafaxine to help her symptoms. This is managed by her primary care provider. Hypothyroidism Diagnosed in her 50s being managed by her primary care provider. 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 Per patient no cancer identified at time of surgery History of carpal tunnel release of both wrists Has had bilateral carpal tunnel release surgery as well as bilateral trigger finger release surgery in June and July [address] Fallon at [facility]. History of tonsillectomy As a child History of hysterectomy Laparoscopic/vaginal hysterectomy in the for vaginal bleeding. She was told there was no cancer after the hysterectomy. History of bilateral knee replacement Open procedures done in her 50s History of gastric bypass Reports having had a laparoscopic gastric bypass procedure in 2018 or 2019. History of bladder surgery Think she has had 3 of 4 bladder surgeries prolapse ---> The first 1 was in approximately 1988 done for bladder prolapse and she states that she overdid it in about a month later had stitches fall and had to have repeat surgery done to fix everything again. She thinks she may have had one other surgery in about 1999 but is not certain. Her final surgery on her bladder was done in 2010 and it was done for pain to try to help with adhesions as that was thought to be the cause of pain. ---> Denied any mesh placement with any of these procedures. History of colonoscopy [address] Vazquez-per patient it was normal and plan is to repeat in 10 years Family History Brother Hypertension Hyperlipidemia Thyroid disease Denies family history of Colon cancer Ovarian cancer Diabetes Heart disease Breast cancer Uterine cancer Stroke Social History Smoking and tobacco/nicotine status: former use of tobacco/nicotine Quit status (tobacco/nicotine): has quit using Year quit tobacco: 2006 Former quit date comment: 1ppd X 43 years Alcohol intake: current Alcohol intake frequency: holidays/special occasions only Substance/Drug Use: current Other substance/drug use details: CBD Pills Data Anesthesia Cardiac Studies: Sestamibi Stress Test (Cardiology) 02/19/23
[2025-03-12 08:52] LABS: Specific Gravity, Urine 1.032 (1.005-1.030)
[2025-03-12 08:53] LABS: UA Manual Slide Review YES
[2025-03-12 08:55] LABS: Add Urine Microscopic? YES
[2025-03-12] MEDS: ceFAZolin 2,000 mg SDV 2000 MG IVP ×3 (09:06→20:10)
[2025-03-12 09:25] LABS: Hematocrit 39.9 % (36-47); Hemoglobin 13.30 g/dL (11.27-16.99); Mean Corpuscular HGB Conc 33.3 g/dL (30-55); Mean Corpuscular Hemoglobin 28.7 pg (27-33); Mean Corpuscular Volume 86.0 fl (85-98); Nucleated Red Blood Cells % 0 %; Platelet Count 442 10^3/cmm (157-399); Red Blood Count 4.64 10^6/uL (3.85-5.65); White Blood Count 5.60 10^3/uL (3.29-11.43)
[2025-03-12 09:51] LABS: Anion Gap 12.6 (5-19); Blood Urea Nitrogen 16 mg/dL (8-23); Calcium 9.4 mg/dL (8.5-10.5); Carbon Dioxide 28 mmol/L (22-29); Chloride 101 mmol/L (98-107); Glucose 107 mg/dL (65-115); Osmolality Calculated 288 mOsm/kg (285-295); Potassium 3.6 mmol/L (3.5-5.1); Sodium 138 mmol/L (136-145)
[2025-03-12] MEDS: lidocaine-epi 1% 20 mL INJ 10 ML INJECTION (10:17)
[2025-03-12] MEDS: heparin, porcine 1,000 unit/mL INJ 10 mL 10000 UNIT XX (10:19)
[2025-03-12] MEDS: tobramycin 40 mg/mL SDV 2mL 120 MG XX (10:24)
--- NOTE | 2025-03-12 11:29 | PM.OP ---
Operative Report Date of procedure: March 12, 2025 Pre-op diagnosis: Lumbar stenosis with neurogenic claudication Post-op diagnosis: same Procedure done: 1. L4/5 Interbody fusion with posterolateral fusion 2. Instrumentation L4- L5 3. Cage at L4/5 4. L4-5 laminectomy with facetectomy 5. use of autograft from same incision 6. allograft 7. Bone marrow aspirate from right iliac crest 8. Use of computer navigation stereotactic for spine Surgeon: Socrates Shepard DO Estimated blood loss (mL): 150 Procedure: 1. L4/5 Interbody fusion with posterolateral fusion 2. Instrumentation L4- L5 3. Cage at L4/5 4. L4-5 laminectomy with facetectomy 5. use of autograft from same incision 6. allograft 7. Bone marrow aspirate from right iliac crest 8. Use of computer navigation stereotactic for spine After undergoing anesthesia, the patient had neuro monitoring attached. Patient was then placed in the prone position on the Paul table. All areas of impingement were well-padded. Patient was then prepped and draped in the normal sterile fashion. Skin incision was then made over the L4-L5 space. Subperiosteal dissection was made out to the transverse processes of L4 and L5 bilaterally. The Matthew Kenney Cuisine bone marrow aspirate kit was used to aspirate bone marrow aspirate from the right iliac crest. This was done by using the sharp probe to open up the bone. Aspiration was performed and then the blunt probe was then used to dissect down to through the bone tunnel. An aspirating well drawn back a millimeter approximately 20 cc of bone marrow aspirate was used. Admixed with the allograft and autograft bone that will be used. Computer navigation was used this was done by placing 2 pins into the right iliac crest. Placing fiducial on this and then the C-arm was brought in and spun on the patient and the information from the C-arm was then loaded in the computer and this was later used for placing screws under computer guidance. The technique for placing the pedicle screws was to use a drill followed by the gearshift probe linked to computer navigation. Followed by the ball probe to feel the superior inferior medial lateral woo of the pedicles. Then placement of the screws with computer navigation. Was done at each pedicle. Screws were placed at L 4 bilaterally and L 5 bilaterally. Next attention was brought to performing the laminectomy of L4. This was done using the high-speed bur Brent and curettes. Once the lamina was removed and then attention was brought to performing a partial facetectomy on the contralateral side. This was done again using the high-speed bur curettes and Kerrisons. The ligamentum flavum was taken down bilaterally from L4 to L5. Attention was then brought to the facet on the ipsilateral side. The facet was taken down. The L5 nerve was decompressed as it passed around the L5 pedicle. The laminectomy was done for purposes of decompressing the nerve as well as placement of the cage. The L4 nerve was identified as it traversed through the L4/5 foramen. The thecal sac was identified and retracted. The L4/5 disc base was identified. Using a knife the disc base was opened. And then sequential christy were placed. The first shaver was a 6 and the last shaver was a 9. Using a pituitary and down going curette the endplates were scraped and disc material was removed from the space. Once adequate decompression of the disc base was felt to be had. Osteoamp sponge was packed into the anterior aspect of the disc base. Then a size 10 cage from [employer] was placed after packing osteoamp into the cage. While placing the cage the thecal sac and L5 nerve was protected. C arm was used to ensure that the cages placed in the appropriate position. Attention was then brought to attaching the rods to the screws placed in the L4 bilaterally, L5 bilaterally. Caps were torqued into position. Locking the construct in place. Wound was copiously irrigated and then attention was brought to decorticating the facets and transverse processes laterally. Bone that was taken down from the lamina was used along with osteoamp fibers and sponges were packed into the lateral gutters along the facet joints. This was done bilaterally. Wound was then closed in a layered fashion starting with the thoracolumbar fascia. 0-vicryl was used the sub cutaneous tissue was closed with 2-0 vicryl and skin with 4-0 monocryl. Glue was then used to seal the skin and a steril dressing was applied. Patient was then placed in the supine position. The endotracheal tube was removed and patient was transferred to the PACU in stable condition.
[2025-03-12] MEDS: fentaNYL 50 mcg/mL INJ 2mL IVP ×2 (11:54→12:02)
--- NOTE | 2025-03-12 12:18 | ANE.PACU2 ---
Inpatient post-anesthesia follow up: Airway intact: Yes Vital signs: Temperature 97.7 F Pulse Rate 69 Respiratory Rate 18 Blood Pressure 121/75 Pulse Oximetry 95 Oxygen Delivery Me thod Room Air Oxygen Flow Rate 2 Fraction of Inspir ed Oxygen Hydration adequate: Yes Nausea and vomiting: No Pain level: 1 Mental status: Baseline
--- NOTE | 2025-03-12 12:31 | PC.NURSE ---
1124 - pt accepted into room 273 with CECIL Patterson - 2LNC in place with 02 at 97% - temp 97.7 BP 113/77 temp 97.7 no distress noted to pt upon this nurse exiting care
[2025-03-12] MEDS: HYDROcodone-acetaminophen 5-325 mg Tablet PO ×2 (13:30→17:58)
--- NOTE | 2025-03-12 16:14 | XR_ITS ---
WS: [id number] XR lumbar spine 2-3V* 13137 REASON FOR EXAM: or pic, FINDINGS: Posterior decompression with pedicle screws and interconnecting rods and interbody fusion device at L4-L5. The surgical appliances are intact and in proper position and alignment XR/XR lumbar spine 2-3V* 42014 IMPRESSION: Posterior lumbar fusion without abnormality.
[2025-03-13] VITALS (8 sets, daily range): BP systolic 101–137; BP diastolic 54–79; PULSE 63–84; RESP 16–18; TEMP 36.4–36.8; O2SAT 92–99; BMI 40.4
[2025-03-13] MEDS: ceFAZolin 2,000 mg SDV 2000 MG IVP (03:47)
[2025-03-13] MEDS: venlafaxine ER (24HR) 75 mg Capsule 225 MG PO (05:30)
[2025-03-13] MEDS: HYDROcodone-acetaminophen 5-325 mg Tablet PO (06:35)
--- NOTE | 2025-03-13 08:32 | PM.DCS ---
Discharge Providers Date of Admission: 03/13/2025 Date of Discharge: March 13, 2025 Attending Provider at Discharge: Socrates Shepard DO Primary Care Provider: Brodie Mcdonald MD Reason for Visit Reason for Visit: Z98.890 Physical Exam Narrative: No complaints Urinary Catheter Management: Walsh Latex: Cath Placed During This Visit: yes Reason for Continuing Indwelling Catheter: Required Immobilization for Trauma or Surgery or Anesthesia Urinary Catheter Date of Insertion: 03/12/25 Urinary Catheter Time of Insertion: 09:22 Discharge Data Studies Completed and Pending Completed Studies During Hospitalization Category Date Time Status XR lumbar spine 2-3V* 00274 Routine Exams 03/12/25 16:14 Completed Radiology Impressions Lumbar Spine X-Ray 03/12/25 16:14 IMPRESSION: Posterior lumbar fusion without abnormality. Laboratory Results WBC 5.60 10^3/uL (3.29-11.43) 03/12/25 09:00 RBC 4.64 10^6/uL (3.85-5.65) 03/12/25 09:00 Hgb 13.30 g/dL (11.27-16.99) 03/12/25 09:00 Hct 39.9 % (36-47) 03/12/25 09:00 MCV 86.0 fl (85-98) 03/12/25 09:00 MCH 28.7 pg (27-33) 03/12/25 09:00 MCHC 33.3 g/dL (30-55) 03/12/25 09:00 RDW 13.1 % (12.1-15.1) 03/12/25 09:00 Plt Count 442 10^3/cmm (157-399) H 03/12/25 09:00 MPV 9.1 fL (7.4-10.4) 03/12/25 09:00 Neut % (Auto) 69.7 % 03/12/25 09:00 Lymph % (Auto) 18.9 % 03/12/25 09:00 Burnett % (Auto) 6.4 % 03/12/25 09:00 Eos % (Auto) 4.3 % 03/12/25 09:00 Baso % (Auto) 0.5 % 03/12/25 09:00 Neut # (Auto) 3.90 10^3/uL (1.8-7.7) 03/12/25 09:00 Lymph # (Auto) 1.1 10^3/uL (0.8-4.8) 03/12/25 09:00 Burnett # (Auto) 0.4 10^3/uL (0.2-0.9) 03/12/25 09:00 Eos # (Auto) 0.2 10^3/uL (0.0-0.8) 03/12/25 09:00 Baso # (Auto) 0.0 10^3/uL (0.0-0.1) 03/12/25 09:00 Nucleated RBC % (auto) 0 % 03/12/25 09:00 Nucleated RBCs # 0.0 /100WBC 03/12/25 09:00 Sodium 138 mmol/L (136-145) 03/12/25 09:00 Potassium 3.6 mmol/L (3.5-5.1) 03/12/25 09:00 Chloride 101 mmol/L (98-107) 03/12/25 09:00 Carbon Dioxide 28 mmol/L (22-29) 03/12/25 09:00 Anion Gap 12.6 (5-19) 03/12/25 09:00 BUN 16 mg/dL (8-23) 03/12/25 09:00 Creatinine 0.7 mg/dL (0.5-0.9) 03/12/25 09:00 GFR Calculation 84.2 mL/min (90-130) L 03/12/25 09:00 Glucose 107 mg/dL (65-115) 03/12/25 09:00 Calculated Osmolality 288 mOsm/kg (285-295) 03/12/25 09:00 Calcium 9.4 mg/dL (8.5-10.5) 03/12/25 09:00 Urine Color Yellow (Yellow) 03/12/25 08:20 Urine Appearance Cloudy (CLEAR) A 03/12/25 08:20 Urine pH 5.5 (5-7) 03/12/25 08:20 Ur Specific [place] 1.032 (1.005-1.030) H 03/12/25 08:20 Urine Protein 1+ (Negative) A 03/12/25 08:20 Urine Glucose (UA) Negative (Normal) 03/12/25 08:20 Urine Ketones Trace (Negative) 03/12/25 08:20 Urine Blood Non-haemolysed trace (Negative) 03/12/25 08:20 Urine Nitrate Negative (Negative) 03/12/25 08:20 Urine Bilirubin Negative (Negative) 03/12/25 08:20 Urine Urobilinogen 1.0 mg/dL (Negative) 03/12/25 08:20 Ur Leukocyte Esterase 1+ (Negative) A 03/12/25 08:20 Urine RBC 3-5 /hpf (0-2) 03/12/25 08:20 Urine WBC 11-20 /hpf (0-5) H 03/12/25 08:20 Ur Squamous Epith Cells 5-10 /hpf (0-5) H 03/12/25 08:20 Calcium Oxalate Crystal 5-10 /hpf H 03/12/25 08:20 Amorphous Sediment Not Reportable 03/12/25 08:20 Hyaline Casts 3-5 /lpf 03/12/25 08:20 Blood Type A Negative 03/12/25 09:00 Rho(D) Type Rh negative 03/12/25 09:00 Antibody Screen Negative 03/12/25 09:00 Vitals Last Vital Signs Temp 98.2 F 03/13/25 07:23 Pulse 81 03/13/25 08:17 Resp 16 03/13/25 08:17 BP 127/79 03/13/25 07:23 Pulse Ox 94 03/13/25 08:17 O2 Del Method Room Air 03/13/25 08:17 O2 Flow Rate 2 03/13/25 08:03 Discharge Plan Discharge Patient Disposition: Home Condition: Stable Prescriptions: New hydrocodone-acetaminophen 5-325 mg tablet 1 - 2 tab PO .Q4-6H Qty: 40 0RF Continued cyclobenzaprine 5 mg tablet 10 mg PO TID nitroglycerin 0.4 mg tablet, sublingual 0.4 mg sublingual Q5M PRN (Reason: CP) Rx Instructions: do not exceed 3 doses per episode Dudleytri Aerosphere 160-9-4.8 mcg/actuation HFA aerosol inhaler 2 inh inhalation DAILY albuterol sulfate 2.5 mg /3 mL (0.083 %) solution for nebulization 2.5 mg continuous nebulization DIRECTED PRN (Reason: Allergy Symptoms) ferrous sulfate [FeroSul] 325 mg (65 mg iron) tablet 325 mg PO DAILY hydroxyzine HCl 25 mg tablet 25 mg PO DIRECTED zolpidem 10 mg tablet 10 mg PO BEDTIME albuterol sulfate 90 mcg/actuation HFA aerosol inhaler 90 mcg inhalation DIRECTED azithromycin 500 mg tablet 500 mg PO DIRECTED Rx Instructions: mon,wed,fri biotin 10,000 mcg capsule 10,000 mcg PO DAILY omeprazole 20 mg capsule,delayed release(DR/EC) 40 mg PO DAILY Qty: 180 1RF amlodipine 5 mg tablet 5 mg PO DAILY Qty: 90 0RF cholecalciferol (vitamin D3) [Vitamin D3] 10 mcg (400 unit) Capsule 400 unit PO DAILY glucosamine sulfate 750 mg Tablet 750 mg PO DAILY levothyroxine 75 mcg Tablet 75 mcg PO DAILY venlafaxine 75 mg Tablet Extended Release 24hr 225 mg PO DAILY losartan-hydrochlorothiazide 50-12.5 mg tablet 1 tab PO DIRECTED Rx Instructions: TAKE 1 TABLET BY MOUTH EVERY DAY Discontinued hydrocodone-acetaminophen 5-325 mg tablet 1 tab PO Q8H PRN (Reason: pain) 14 Days Qty: 42 0RF Discharge Order = DC NOW: Discharge Order (Routine); Ordered 03/13/25 Ordered By: Socrates Shepard Discharge Diet: Advance as tolerated Discharge Activity: Limit activity as instructed Patient Instructions: Acute Wound Care (DC), Post Anesthesia Care Activity Restrictions/Additional Instructions: Thank you for choosing [facility] for your care! The following is a list of instructions, from your provider, to follow upon your discharge to ensure you have the optimal recovery from your recent injury or surgery. Follow-up care is a parker part of your treatment and safety. Be sure to make and go to all appointments, and call your doctor if you are having problems. If you do not already have a follow-up appointment made, call Dr. Shepard's office in the next 1-3 days to make follow up appointment for [] weeks at [phone]. It is also a good idea to know your test results and keep a list of the medicines you take. Medications will be prescribed for you at your provider?s discretion. These medications are to be used as instructed;if they are taken more often that prescribed they will not be refilled early and in most cases will not be refilled at all. > When a refill is needed,you should contact our office 2-3 business days beforeyour prescription runs out. Medications will NOTbe refilled by compensation and benefits administrator providers after hours! > Many pain medications contain Tylenol (Acetaminophen). Do not consume more than 4,000 mg of Tylenol per day in total with any combination of medications. > Pain medications can cause constipation. Please use an over the counter stool softener as directed, while taking pain medications. Consult your local pharmacist with questions or recommendations on stool softeners. If constipation persists, contact our office or your primary care provider. > While under our care,you are not to receive pain medications or other controlled substances from any other provider unless our office is notified and approves. Any attempts to do so will result in refusal to prescribe any further pain medications and possible dismissal from our practice. ? Your wound and/or dressing should remain clean and dry ? Walking is essential for the healing process after surgery. We would like you to slowly advance your walking. This should be done on relatively flat clear ground (inside or out) or can be done on a treadmill. Remember this goal does not have to happen all at once, slowly increase your distance and duration. This can be broken into more more than one walk per day as tolerated. Patients who walk as directed after surgery rarely require Physical Therapy. In the unlikely event this issue arises your provider will direct hospital staff to make the appropriate arrangements. ? No lifting over 5 pounds {a gallon of milk) or bending/twisting until further notice. Each of these activities places an unnecessary amount of stress onto the body and can impede the delicate healing process. > Instead of bending at the waist, keep your back straight and bend at the knees. > Instead of twisting your torso, keep your back straight and turn your entire body with your feet. ? You may sleep in any position which makes you comfortable.Many patients find comfort sleeping in a reclining chair. It is not abnormal to have difficulty sleeping for the first several weeks following your surgery. We recommend trying Benadryl or Tylenol PM as directed to help with your sleeping difficulties. Both medications are over the counter and available without prescription. ? NO SMOKING!!!Smoking dramatically increases the probability of developing postoperative wound infections. ? Common complaints after lumbar and/or thoracic spine surgery include, but are not limited to: numbness and/or tingling in the legs, pain around the incision and surrounding tissues, muscle spasms, or stiffness of the middle to low back. Contact our office if these symptoms persist or if an acute change occurs. ? No driving for the first 3-5 days, and not while taking narcotics until seen at your follow-up appointment and cleared.There are no restrictions for riding on short trips, however if you take a longer trip, arrangements should be made to make regular stops to get out of the vehicle and stretch . ? Swelling is an unfortunate event that will take place with any surgery and is the primary source of your postoperative discomfort. While walking and regular approved activities helps control inflammation, there are additional steps you can take to minimize swelling. > Place ice over the surgical site and surrounding tissue for twenty minutes, followed by applying a low/medium heat (heating pad) for an additional twenty minutes every 1-2 hours as needed for pain relief. > You may use of over the counter anti-inflammatory medications (Ibuprofen, Motrin, Aleve, Advil, etc) as directed on the package label. These types of medicines will significantly reduce the amount of discomfort you experience after surgery from swelling. It should be noted that if you have an allergy to any of these medications, or a history of ulcers or kidney disease you should consult your primary care provider prior to starting these medications. Print Language: Nepali Discharge Attestations Time Spent in Discharge Care*: less than 30 min Quality Metrics Clinical Quality Measures [ No reported AMI, CVA or VTE this stay] Coding Level of Care Code Acute Code for Leonelwandy Fwyris
--- OUTSIDE RECORDS SUMMARY | 2025-03-14 15:59 | XMS_ITS | Patient Health Record ---
Author Organization [facility] Address [address] [place] [address] Care Team Providers Care Optometrist Name Role Phone Brodie Mcdonald MD Primary Care Provider William Wayne Unavailable [phone] Allergies Allergen (clinical drug ingredient) Drug/Non Drug Allergy documented on EMR Reaction Allergy Type Onset Date Status lorazepam Ativan Unknown Drug Allergy Active morphine Morphine Unknown Drug Allergy Active Reason For Referral No Information Medications Medication SIG (Take, Route, Frequency, Duration) Notes Start Date End Date Status Gabapentin 400 MG Capsule Oral; Duration : 90 Days Active amLODIPine Besylate 5 MG Tablet Oral; Duration: 90 Days Active Vitamin B12 Active Biotin Active Vitamin C Active Cyclobenzaprine HCl 10 MG Tablet Oral; Duration: 30 Days Active Albuterol Sulfate HFA 108 (90 Base) MCG/ACT Aerosol Solution 2 puffs as needed Inhalation every 4-6 hrs as needed; Duration: 90 days Active Diclofenac Sodium 50 MG Tablet Delayed Release Oral; Duration: 30 Days Active hydrOXYzine HCl 25 MG Tablet Oral; Duration: 5 Days Active Losartan Potassium-HCTZ 50-12.5 MG Tablet Oral; Duration: 90 Days Active Breztri Aerosphere 160-9-4.8 MCG/ACT Aerosol INHALE 2 PUFFS TWICE DAILY; Duration: 90 Active Nitroglycerin 0.[address] 1 TABLET UNDER TONGUE EVERY 5 MINS, UP TO 3 DOSES NEEDED FOR CHEST PAIN Sublingual; Duration: 10 Days Active Omeprazole 20 MG Capsule Delayed Release Oral; Duration: 90 Days Active Albuterol Sulfate (2.5 MG/3ML) 0.083% Nebulization Solution Inhalation; Duration: 10 Days PRN Active Venlafaxine HCl ER 75 MG Capsule Extended Release 24 Hour Oral; Duration: 90 Days Active predniSONE 20 MG Tablet Oral; Duration: 7 Days Not-Taking Glucosamine Active Zolpidem Tartrate 10 MG Tablet Oral; Duration: 90 Days Active Azithromycin 500 MG Tablet 1 tablet Oral ly Three times a Week: Wednesday, Wednesday, Wednesday; Duration: 90 days 08/21/2024 08/16/2025 Active Levothyroxine Sodium 75 MCG Tablet Oral; Duration: 90 Days Active Social History Tobacco Use: Social History Observation Description Date Details (start date - stop date) Former Smoker NA - NA Social History Tobacco Use: Social Info Question Answer Notes Tobacco Control (Standard) Tobacco use: Former smoker How long has it been since you last smoked? Greater than 10 years Additional Details Category Social Info Options Details [...] if ever smoked, Working currently? - No Problems Problem Type SNOMED Code ICD Code Onset Dates Problem Status W/U Status Risk Notes Problem Centrilobular emphysema (48825322) Centrilobular emphysema (J43.2) Active confirmed Problem Chronic respiratory failure (28747517) Chronic hypoxic respiratory failure (J96.11) Active confirmed Vital Signs Heart Rate 75 /min 08/21/2024 Temperature 97.0 degrees Fahrenheit 08/21/2024 Respiratory Rate 20 /min 08/21/2024 Blood pressure diastolic 85 mm Hg 08/21/2024 Oximetry 95 % 08/21/2024 Height-cm 149.86 cm 08/21/2024 Weight-kg 93.8 kg 08/21/2024 Height 59.00 in 08/21/2024 Blood pressure systolic 129 mm Hg 08/21/2024 Weight 206.79 lbs 08/21/2024 BMI 41.76 kg/m2 08/21/2024 Encounters Encounter Location Date Provider Diagnosis [facility] [address] [place] [address] 08/21/2024 William Banuelos Chronic cough R05.3 ; Centrilobular emphysema J43.2 ; Former smoker Z87.891 and Chronic hypoxic respiratory failure J96.11 [facility] [address] [place] [address] 05/02/2024 William Banuelos Chronic cough R05.3 ; Centrilobular emphysema J43.2 and Former smoker Z87.891 [facility] [address] [place] [address] 07/31/2024 William Vin [facility] [address] [place] [address] [place] [address] 06/12/2024 William Vin [facility] [address] [place] [address] [place] [address] 05/30/2024 [facility] [address] [place] [address] 05/29/2024 [facility] [address] [place] [address] [place] [address] 03/27/2024 Williamlalito Banuelos [facility] [address] [place] [address] [place] [address] 01/15/2025 [facility] [address] [place] [address] [place] [address] 08/24/2024 William Banuelos Assessments Encounter Date Diagnosis (ICD Code) Assessment Notes Treatment Notes Treatment Clinical Notes Section Notes 05/02/2024 Chronic cough (ICD-10 - R05.3) No benefit from Mucinex The patient was advised antireflux measures: Elevating the head of the bed when going to sleep, avoiding eating or drinking 4 hours prior to bedtime, avoiding caffeinated drinks such as coffee, tea, and chocolates as well as milk products. 08/21/2024 Chronic cough (ICD-10 - R05.3) No benefit from Mucinex The patient was advised antireflux measures: Elevating the head of the bed when going to sleep, avoiding eating or drinking 4 hours prior to bedtime, avoiding caffeinated drinks such as coffee, tea, and chocolates as well as milk products. 08/21/2024 Centrilobular emphysema (ICD-10 - J43.2) Continue Breztri as well as Albuterol HFA and Neb. -Treat as exacerbation with Doxycycline and Prednisone -Start Azithromycin MWF 08/21/2024 Former smoker (ICD-10 - Z87.891) 22 pack smoker smoking up until the age of 45. Given long duration of abstinence from cigarette smoke she does not qualify for lung cancer screening. Her last chest CT was from September 2023 showing no concerning pulmonary nodule or mass. 05/02/2024 Centrilobular emphysema (ICD-10 - J43.2) Continue Breztri as well as Albuterol HFA and Neb. Start Doxycycline and Prednisone for exacerbation. 05/02/2024 Former smoker (ICD-10 - Z87.891) 22 pack smoker smoking up until the age of 45. Given long duration of abstinence from cigarette smoke she does not qualify for lung cancer screening. Her last chest CT was from September 2023 showing no concerning pulmonary nodule or mass. 08/21/2024 Chronic hypoxic respiratory failure (ICD-10 - J96.11) Patients room air oxygen saturation at rest was 95%. Her ambulatory saturation on room air was 88%. She was placed on 2Lpm which brought her up to 96%. I will order her daytime oxygen. 05/02/2024 Other Shea Haynes am scribing for, and in the presence of Dr. William Banuelos. I, Dr. William Banuelos, personally performed the services described in this documentation, as scribed by Shea Tom in my presence, and it is both accurate and complete. 08/21/2024 Other Shea Haynes am scribing for, and in the presence of Dr. William Banuelos. I, Dr. William Banuelos, personally performed the services described in this documentation, as scribed by Shea Tom in my presence, and it is both accurate and complete. Plan Of Treatment No Information Insurance Providers Payer Name Payer Address Payer Phone Subscriber Number Group Number Insured Name Patient Relationship to Insured Coverage Start Date Coverage End Date [employer] Medicare Replacement [address] [address] [place] [address] [id number] TEREZA LINDER Self - patient is the insured Medical (General) History Medical History History ICD Code Arthritis, Chicken Pox Chronic pain, Whooping Cough Irritable bowel, Migraine, Pneumonia Thyroid disease, Back trouble HTN Surgical History Surgery Date(Month/Year) Hysterectomy Since 1984 Ovarian Surgery Since 1989 Birch Bladder Since 1991 bladder repair Since 2006 Bladder Lift Since 2017 Carpal tunnel surgery Since 2020 gastric Bypass 2012 Bilateral Knee replacement 08/2017 Hospitalization History Reason Date(Month/Year) SEE SX HX
--- OUTSIDE RECORDS SUMMARY | 2025-03-14 16:00 | XMS_ITS | Clinical Summary ---
Author Organization [facility] Address [address] [place]: Epic Prelude ADT [place]TAN JOSE [address] Care Team Providers Care Screw Machine Repairer Name Role Phone Unavailable Primary Care Provider Unavailabl e Allergies Active Allergy Reactions Criticality Noted Date Comments Lorazepam Other (See Comments) 03/25/2020 suicidial tendencies Morphine Other (See Comments) 03/25/2020 Becomes very combative Medications doxepin (SINEquan) 10 mg capsule TAKE 1 CAPSULE BY MOUTH AT BEDTIME 02/27/2020 Active levothyroxine 50 mcg tablet Take 50 mcg by mouth daily in the morning. 03/25/2020 Active dexAMETHasone (DECADRON) 6 mg Tablet TAKE 1 TABLET BY MOUTH ONCE DAILY 01/15/2020 Active cyclobenzaprine (FLEXERIL) 5 mg Tablet TAKE 1 TABLET BY MOUTH THREE TIMES DAILY NEEDED 02/27/2020 Active oxyCODONE (ROXICODONE) 5 mg tablet 03/13/2020 Active tamsulosin (FLOMAX) 0.4 mg capsule TAKE 1 CAPSULE BY MOUTH ONCE DAILY 02/27/2020 Active gabapentin (NEURONTIN) 300 mg capsule TAKE 1 CAPSULE BY MOUTH TWICE DAILY 02/27/2020 Active venlafaxine (EFFEXOR XR) 75 mg Extended Release 24 hour capsule TAKE 1 CAPSULE BY MOUTH THREE TIMES DAILY 02/11/2020 Active levothyroxine (Euthyrox) 50 mcg tablet TAKE 1 TABLET BY MOUTH ONCE DAILY 02/27/2020 Active Social History Tobacco Use Types Packs/Day Years Used Date Smoking Tobacco: Never Smokeless Tobacco: Never Comments Unknown Sex and Gender Information Value Date Recorded Sex Assigned at Not on file Legal Sex Female 8:03 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 Gender Identity Not on file Sexual Orientation Not on file Last Filed Vital Signs Vital Sign Reading Time Taken Comments Blood Pressure 134/83 04/15/2020 10:31 AM MICROARRAY ANALYST Pulse 71 04/15/2020 10:31 AM MICROARRAY ANALYST Temperature - - Respiratory Rate - - Oxygen Saturation - - Inhaled Oxygen Concentration - - Weight 90.7 kg (200 lb) 04/15/2020 10:31 AM MICROARRAY ANALYST Height 149.9 cm (4' 11 ) 04/15/2020 10:31 AM MICROARRAY ANALYST Body Mass Index 40.39 04/15/2020 10:31 AM MICROARRAY ANALYST Plan of Treatment Health Maintenance Due Date Last Done Comments DTAP/TDAP/TD VACCINES (1 - Tdap) 07/13/1979 HPV/Cotest (21-29) 1981 CERVICAL CANCER SCREENING 1990 HPV/Cotest (30-65) 1990 PAP SMEAR 1990 BREAST CANCER SCREENING 2000 COLORECTAL SCREENING 2005 Colorectal Cancer Screening 2005 FIT-DNA Q 3 years 2005 FIT/FOBT Q 1 year 2005 Flex Sig/CT Colonography Q 5 years 2005 ZOSTER VACCINE (1 of 2) 2010 INFLUENZA VACCINE (#1) 2024 RSV VACCINE (60+ or ) (1 - 1-dose 75+ series) 07/13/2035
--- OUTSIDE RECORDS SUMMARY | 2025-03-14 16:00 | XMS_ITS | Clinical Summary ---
Author Organization [facility] Address [address] [place] [address] Care Team Providers Care Flue Cleaner Name Role Phone Unavailable Primary Care Provider Unavailabl e Allergies Active Allergy Reactions Criticality Noted Date Comments Lorazepam Other (See Comments) 03/25/2020 suicidial tendencies Morphine Other (See Comments) 03/25/2020 Becomes very combative Medications oxyCODONE (ROXICODONE) 5 mg tablet 03/13/2020 Active gabapentin (NEURONTIN) 300 mg capsule TAKE 1 CAPSULE BY MOUTH TWICE DAILY 02/27/2020 Active dexAMETHasone (DECADRON) 6 mg Tablet TAKE 1 TABLET BY MOUTH ONCE DAILY 01/15/2020 Active cyclobenzaprine (FLEXERIL) 5 mg Tablet TAKE 1 TABLET BY MOUTH THREE TIMES DAILY NEEDED 02/27/2020 Active doxepin (SINEquan) 10 mg capsule TAKE 1 CAPSULE BY MOUTH AT BEDTIME 02/27/2020 Active venlafaxine (EFFEXOR XR) 75 mg Extended Release 24 hour capsule TAKE 1 CAPSULE BY MOUTH THREE TIMES DAILY 02/11/2020 Active Euthyrox 50 mcg tablet TAKE 1 TABLET BY MOUTH ONCE DAILY 02/27/2020 Active tamsulosin (FLOMAX) 0.4 mg capsule TAKE 1 CAPSULE BY MOUTH ONCE DAILY 02/27/2020 Active levothyroxine 50 mcg tablet Take 50 mcg by mouth daily in the morning. Active Active Problems No known active problems Social History Tobacco Use Types Packs/Day Years Used Date Smoking Tobacco: Never Smokeless Tobacco: Never Comments Unknown Sex and Gender Information Value Date Recorded Sex Assigned at Not on file Legal Sex Female 12:18 PM PRICING MANAGER Gender Identity Not on file Sexual Orientation Not on file Last Filed Vital Signs Vital Sign Reading Time Taken Comments Blood Pressure 134/83 04/15/2020 10:31 AM PRICING MANAGER Pulse 71 04/15/2020 10:31 AM PRICING MANAGER Temperature - - Respiratory Rate - - Oxygen Saturation - - Inhaled Oxygen Concentration - - Weight 90.7 kg (200 lb) 04/15/2020 10:31 AM PRICING MANAGER Height 149.9 cm (4' 11 ) 04/15/2020 10:31 AM PRICING MANAGER Body Mass Index 40.4 04/15/2020 10:31 AM PRICING MANAGER Plan of Treatment Health Maintenance Due Date [...] ) (1 - 1-dose 75+ series) 07/13/2035 Insurance Member Subscriber Plan / Payer (Ef fective 2019-Present) Name:Lily Elmore Relation to Subscriber:Self Name:Lily Elmore Payer ID:Not on file Group ID:[id number] Type:[employer] Address: [facility] [id number] [place] [id number]
== END 2025-03-13 11:08 | disposition home or self-care (01) ==
LOC: MEDSURG 12:19
PROVIDERS: Student in an Organized Health Care Education/Training Program; Admitting Provider Orthopaedic Surgery; PCP Family Medicine; Visit Provider Orthopaedic Surgery
PROC: (CPT 22633; principal; 2025-03-12 09:10)
DX: M48.062 Spinal stenosis, lumbar region with neurogenic claudication (principal); I10 Essential (primary) hypertension; K21.9 Gastro-esophageal reflux disease without esophagitis; G47.33 Obstructive sleep apnea (adult) (pediatric); Z99.89 Dependence on other enabling machines and devices; J44.9 Chronic obstructive pulmonary disease, unspecified; E03.9 Hypothyroidism, unspecified; Z79.891 Long term (current) use of opiate analgesic; J96.90 Respiratory failure, unspecified, unspecified whether with hypoxia or hypercapnia; Z87.891 Personal history of nicotine dependence
CPT/HCPCS: 22633; 22840; 22853; 63052; 20936; 20930; 20939; 61783; 51702; 72100; 76000; 80048; 81001; 85025; 86850; 86900; 94640; 97116; 97161; 97530; A4649; C1713; C1776; G0378; J0690; J1100; J1171; J1644; J1885; J2250; J2405; J3010; J3260; J3373; J3490; J7030; J7120; J7626; J9999

== ENCOUNTER → 2025-03-27 13:56 | Outpatient (BNVA) | payer MEDICARE, SELFPAY | PROVIDERS: PCP Family Medicine; Visit Provider Orthopaedic Surgery | DX: Z98.890 Other specified postprocedural states (principal); Z98.1 Arthrodesis status | CPT/HCPCS: 72100; 99024 ==

== ENCOUNTER → 2025-04-02 14:41 | Outpatient (BNVA) | payer MEDICARE, SELFPAY | PROVIDERS: PCP Family Medicine; Visit Provider Internal Medicine | DX: I10 Essential (primary) hypertension (principal); Z87.891 Personal history of nicotine dependence | CPT/HCPCS: 99213 ==

== ENCOUNTER → 2025-04-09 09:03 | Outpatient (BNVA) | payer MEDICARE, SELFPAY | PROVIDERS: PCP Family Medicine; Visit Provider Internal Medicine | DX: J44.9 Chronic obstructive pulmonary disease, unspecified (principal); J96.10 Chronic respiratory failure, unspecified whether with hypoxia or hypercapnia; Z99.89 Dependence on other enabling machines and devices; R91.1 Solitary pulmonary nodule; G47.33 Obstructive sleep apnea (adult) (pediatric); Z87.891 Personal history of nicotine dependence | CPT/HCPCS: 99214; Q3014 ==

== ENCOUNTER → 2025-04-24 08:29 | Outpatient (BNVA) | payer MEDICARE, SELFPAY | PROVIDERS: PCP Family Medicine; Visit Provider Orthopaedic Surgery | DX: Z98.890 Other specified postprocedural states (principal); Z98.1 Arthrodesis status | CPT/HCPCS: 72100; 99024 ==